=== PATIENT | male | born 1940 | race Caucasian/White ===

== ENCOUNTER 2021-06-23 19:37 | Emergency (ER) | payer MEDICARE, OTHER, SELFPAY ==
[2021-06-23] VITALS (7 sets, daily range): BP systolic 120–142; BP diastolic 57–66; PULSE 98–125; RESP 16; TEMP 37.3; O2SAT 95–96; BMI 25.8
[2021-06-23 20:14] LABS: COVID19 -Nasal RAPID Negative (Negative)
[2021-06-23 21:57] LABS: Add Manual Diff / Slide Review YES; Hematocrit 32.8 % (41-53); Hemoglobin 11.1 g/dL (13.5-17.5); Mean Corpuscular HGB Conc 33.8 % (30-36); Mean Corpuscular Hemoglobin 27.9 PG (26-34); Mean Corpuscular Volume 82.6 fL (80-100); Platelet Count 480 X10^3/uL (150-400); Red Blood Cell Count 3.97 X10^6/uL (4.5-5.9); Red Cell Distribution Width 13.6 % (11.6-14.8); White Blood Cell Count 15.3 X10^3/uL (4.5-11.0)
[2021-06-23 22:00] LABS: Alanine Aminotransferase 47 IU/L (<50); Albumin 3.9 g/dL (3.5-5.0); Albumin Globulin Ratio 1.1 (1.0-2.8); Alkaline Phosphatase 91 U/L (38-126); Aspartate Aminotransferase 36 IU/L (17-59); BUN Creatinine Ratio 24.7 (6-22); Bilirubin Total 0.5 mg/dL (0.2-1.3); Blood Urea Nitrogen 20 mg/dL (9-20); Calcium 9.1 mg/dL (8.4-10.2); Carbon Dioxide 24 mmol/L (22-32); Chloride 98 mmol/L (98-107); Estimated Glomerular Filt Rate > 60 mL/min (>60); Globulin 3.7 g/dL (1.7-4.1); Glucose 327 mg/dL (80-110); HEMOLYSIS < 15 (0-50); Lipase 198 U/L (23-300); Sodium 132 mmol/L (137-145); Total Protein 7.6 g/dL (6.3-8.2)
[2021-06-23 22:01] LABS: Potassium 5.4 mmol/L (3.4-5.1)
--- NOTE | 2021-06-23 22:24 | ED.NAVMDI ---
HPI - Nausea/Vomiting/Diarrhea General Chief complaint: Nausea/Vomiting/Diarrhea Stated complaint: NOT EATING OR DRINKING LOW BLOOD PRESSURE DIARRHEA Time Seen by Provider: 06/23/21 21:00 Source: patient and family Mode of arrival: Wheelchair History of Present Illness HPI Narrative: Patient is an 81-year-old male. He is here in the emergency department with his daughter for evaluation of 2 months of diarrhea, decreased eating and drinking over the past couple days and also more fatigue and sleeping more than normal. He does have some issues with confusion although he does note he is in the emergency department. Does not know what year it is. His daughter bedside states this is normal for him. He is relatively new to the area. He has a follow-up with a new primary doctor on Saturday. He has been having loose stools for the past several months. She also reports that he has not been eating very well. He states that he feels fine and has no specific complaints today. Patient's daughter states that when they try to feed him he states that he has full does not want any thing to eat. Given his decline over the past several days the daughter would like patient evaluated. Related Data Allergies Allergy/AdvReac Type Severity Reaction Status Date / Time No Known Drug Allergies Allergy Verified 06/23/21 19:45 Review of Systems Constitutional Constitutional: Denies fever(s) Cardiovascular Comments: Patient denies chest pain Respiratory Comments: Denies shortness of breath Gastrointestinal Comments: Patient denies any abdominal symptoms. No nausea. Integumentary/Breasts Skin/Breast: Reports system reviewed and no additional complaints, except as documented Neurologic Comments: No change in baseline Hematologic/Lymphatic On Anticoagulants: No Patient History Social History Smoking Status: Never smoker Smoking Status: Never smoker alcohol intake frequency: holidays/special occasions only Substance Use Type: does not use Exam Initial Vital Signs Initial Vital Signs: Vital Signs Temperature 99.1 F 06/23/21 19:46 Pulse Rate 125 H 06/23/21 19:46 Respiratory Rate 16 06/23/21 19:46 Blood Pressure 120/57 L 06/23/21 19:46 Pulse Oximetry 95 06/23/21 19:46 HENMT Head: normal to inspection and normocephalic Cardio Rate: regular rate Rhythm: regular rhythm GI Inspection: normal to inspection Palpation: soft and No tender Skin General: no rashes or lesions noted Neuro General: patient alert, patient awake and moves all extremities Extrem General: capillary refill normal Psych Appearance: grossly normal and well kempt Course Orders Ordered: ED Orders 06/23/21 19:54 COVID19 -Nasal RAPID/Pre-Proc Stat 06/23/21 21:01 EKG-12 Lead Stat 06/23/21 21:40 Complete Blood Count AUTO DIFF Stat Comprehensive Metabolic Panel Stat Lipase Stat 06/23/21 22:51 Urinalysis and Microscopic Stat Vital Signs Vital signs: Vital Signs - 8 hr 06/23/21 19:46 06/23/21 21:30 06/23/21 21:31 Temperature 99.1 F Pulse Rate 125 H 104 H 104 H Respiratory Rate 16 Blood Pressure 120/57 L 142/66 H Pulse Oximetry 95 96 95 06/23/21 22:00 06/23/21 22:30 06/23/21 23:00 Temperature Pulse Rate 100 H 101 H 98 H Respiratory Rate Blood Pressure Pulse Oximetry 95 96 96 06/23/21 23:30 06/24/21 00:00 Temperature Pulse Rate 99 H 98 H Respiratory Rate Blood Pressure 134/63 Pulse Oximetry 95 95 MDM - Nausea/Vomiting/Diarrhea Lab Data Attestation: I reviewed the patient's lab results. Result diagrams: 06/23/21 21:40 06/23/21 21:40 Labs: Lab Results 06/23/21 06/23/21 06/23/21 Range/Units 19:54 21:40 21:40 WBC 15.3 H (4.5-11.0) X10^3/uL RBC 3.97 L (4.5-5.9) X10^6/uL Hgb 11.1 L (13.5-17.5) g/dL Hct 32.8 L (41-53) % MCV 82.6 (80-100) fL MCH 27.9 (26-34) PG MCHC 33.8 (30-36) % RDW 13.6 (11.6-14.8) % Plt Count 480 H (150-400) X10^3/uL Neut % (Auto) Not Reportable Lymph % (Auto) Not Reportable [place] % (Auto) Not Reportable Eos % (Auto) Not Reportable Baso % (Auto) Not Reportable Lymph # (Auto) Not Reportable [place] # (Auto) Not Reportable Baso # (Auto) Not Reportable Total Counted 100 Seg Neutrophils % 60.0 (38-70) % Band Neutrophils % 4.0 (3-7) % Lymphocytes % (Manual) 23.0 L (25-45) % Monocytes % (Manual) 8.0 (2-11) % Eosinophils % (Manual) 3.0 (2-4) % Basophils % (Manual) 1.0 (0-1) % Neutrophils # (Manual) 9792 H (9759-0857) /uL Plasma Cells 1 RBC Morphology Normal morphology Sodium 132 L (137-145) mmol/L Potassium 5.4 H (3.4-5.1) mmol/L Chloride 98 (98-107) mmol/L Carbon Dioxide 24 (22-32) mmol/L BUN 20 (9-20) mg/dL Creatinine 0.81 (0.66-1.25) mg/dL Estimated GFR > 60 (>60) mL/min BUN/Creatinine Ratio 24.7 H (6-22) Glucose 327 H (80-110) mg/dL Calcium 9.1 (8.4-10.2) mg/dL Total Bilirubin 0.5 (0.2-1.3) mg/dL AST 36 (17-59) IU/L ALT 47 (<50) IU/L Alkaline Phosphatase 91 (38-126) U/L Total Protein 7.6 (6.3-8.2) g/dL Albumin 3.9 (3.5-5.0) g/dL Globulin 3.7 (1.7-4.1) g/dL Albumin/Globulin Ratio 1.1 (1.0-2.8) Lipase 198 (23-300) U/L Urine Color Urine Appearance Urine pH (4.5-8.0) Ur Specific [place] (1.000-1.035) Urine Protein (Negative) Urine Glucose (UA) (Negative) g/dL Urine Ketones (NEGATIVE) Urine Occult Blood (Negative) Urine Nitrate (Negative) Urine Bilirubin (NEGATIVE) Urine Urobilinogen (0.2) E.U./dL Ur Leukocyte Esterase (NEGATIVE) Urine RBC (0-5/HPF) Urine WBC (0-5/HPF) Urine Bacteria (None) Hyaline Casts (None) Urine Mucus (Negative) Ur Culture Indicated? SARS-CoV-2 (PCR) Negative (Negative) 06/23/21 Range/Units 22:51 WBC (4.5-11.0) X10^3/uL RBC (4.5-5.9) X10^6/uL Hgb (13.5-17.5) g/dL Hct (41-53) % MCV (80-100) fL MCH (26-34) PG MCHC (30-36) % RDW (11.6-14.8) % Plt Count (150-400) X10^3/uL Neut % (Auto) Lymph % (Auto) [place] % (Auto) Eos % (Auto) Baso % (Auto) Lymph # (Auto) [place] # (Auto) Baso # (Auto) Total Counted Seg Neutrophils % (38-70) % Band Neutrophils % (3-7) % Lymphocytes % (Manual) (25-45) % Monocytes % (Manual) (2-11) % Eosinophils % (Manual) (2-4) % Basophils % (Manual) (0-1) % Neutrophils # (Manual) (2824-6205) /uL Plasma Cells RBC Morphology Sodium (137-145) mmol/L Potassium (3.4-5.1) mmol/L Chloride (98-107) mmol/L Carbon Dioxide (22-32) mmol/L BUN (9-20) mg/dL Creatinine (0.66-1.25) mg/dL Estimated GFR (>60) mL/min BUN/Creatinine Ratio (6-22) Glucose (80-110) mg/dL Calcium (8.4-10.2) mg/dL Total Bilirubin (0.2-1.3) mg/dL AST (17-59) IU/L ALT (<50) IU/L Alkaline Phosphatase (38-126) U/L Total Protein (6.3-8.2) g/dL Albumin (3.5-5.0) g/dL Globulin (1.7-4.1) g/dL Albumin/Globulin Ratio (1.0-2.8) Lipase (23-300) U/L Urine Color Yellow Urine Appearance Clear Urine pH 5.0 (4.5-8.0) Ur Specific [place] 1.025 (1.000-1.035) Urine Protein Trace H (Negative) Urine Glucose (UA) 1+ H (Negative) g/dL Urine Ketones Negative (NEGATIVE) Urine Occult Blood Negative (Negative) Urine Nitrate Negative (Negative) Urine Bilirubin Negative (NEGATIVE) Urine Urobilinogen 0.2 (0.2) E.U./dL Ur Leukocyte Esterase Negative (NEGATIVE) Urine RBC None seen (0-5/HPF) Urine WBC None seen (0-5/HPF) Urine Bacteria None seen (None) Hyaline Casts 1-5/lpf (None) Urine Mucus 1+ H (Negative) Ur Culture Indicated? Cult not indicated SARS-CoV-2 (PCR) (Negative) MDM Narrative Medical decision making narrative: Patient does have a benign exam. Was tachycardic upon arrival but this improved without specific intervention. He does have a leukocytosis. Lungs are clear. Not coughing. Not febrile. Low suspicion for pneumonia. He has a benign abdominal exam. No reported tenderness to palpation. He is at baseline mental status. He has no skin changes concerning for cellulitis. Urinalysis shows no signs of urinary tract infection. Patient has had diarrhea for the past couple months which could be the cause of his leukocytosis. Unable to provide a stool sample here in the ER. I do feel that we can hold on any radiologic studies for now as I have low suspicion for an acute surgical intra-abdominal pathology given his exam. COVID negative. Hyperglycemic but not in DKA with a normal CO2 on chemistries. Does have a follow-up with a new primary doctor on Saturday. No indication for antibiotics currently. There would potentially be a benefit of a stool sample in the future specifically given his prolonged diarrhea and his leukocytosis. Daughter was given return precautions and follow-up instructions. She expressed understanding and agreement. Discharge Plan Departure Patient Disposition: Home Clinical Impression: Diarrhea Instructions: Diarrhea Activity Restrictions/Additional Instructions: I do recommend that you keep his appointment with the new primary doctor on Saturday. Continue to give him all of his medications as directed. Return to the emergency department for any new symptoms.
[2021-06-23 23:09] LABS: Appearance Urine UA CLEAR; Bilirubin Urine UA NEGATIVE (NEGATIVE); Color Urine UA YELLOW; Glucose Urine UA 1+ g/dL (Negative); Ketones Urine UA NEGATIVE (NEGATIVE); Leukocyte Esterase Urine UA NEGATIVE (NEGATIVE); Nitrite Urine UA NEGATIVE (Negative); Occult Blood Urine UA NEGATIVE (Negative); Protein Urine UA TRACE (Negative); Specific Gravity Urine UA 1.025 (1.000-1.035); Urobilinogen Urine UA 0.2 E.U./dL (0.2)
[2021-06-24] VITALS: BP 134/63; PULSE 98; O2SAT 95
[2021-06-24 00:10] LABS: Neutrophils Absolute Manual 9792 /uL (3000-5900); Total Cells Counted 100
[2021-06-24 00:11] LABS: Plasma Cells 1; RBC Morphology Normal Morphology
[2021-06-24 00:35] LABS: RBC Urine None Seen (0-5/HPF); WBC Urine None Seen (0-5/HPF)
[2021-06-24 00:36] LABS: Bacteria Urine None Seen; Culture Indicated Urine Cult Not Indicated; Hyaline Casts Urine 1-5/LPF; Mucus Urine 1+ (Negative)
== END 2021-06-24 00:11 | disposition home or self-care (01) ==
PROVIDERS: Emergency Provider Emergency Medicine
DX: R19.7 Diarrhea, unspecified (principal); R00.0 Tachycardia, unspecified; Z20.822 Contact with and (suspected) exposure to COVID-19
CPT/HCPCS: 36415; 80053; 81001; 83690; 85007; 85025; 87635; 99283; C9803

== ENCOUNTER → 2021-06-28 09:03 | Outpatient (CLI) | payer MEDICARE, OTHER, SELFPAY ==
--- NOTE | 2021-06-28 09:46 | DI.CT.S_ITS ---
PROCEDURE: CT CHEST ABD PEL W CON INDICATIONS: Weakness, Diarrhea, Fatigue TECHNIQUE: After the administration of oral and intravenous contrast, axial sections acquired from the supraclavicular neck to the pubic symphysis. Coronal and sagittal reformats were performed. For radiation dose reduction, the following was used: automated exposure control, adjustment of mA and/or kV according to patient size. COMPARISON: None. FINDINGS: Image quality: Excellent. CHEST: Lower Neck: No enlarged lymph nodes. Thyroid: Unremarkable. Axillae: No enlarged lymph nodes. Chest Wall: Unremarkable. Lungs and Airways: No consolidation or suspicious nodules. Pleura: No pneumothorax or pleural effusions. Heart: Heart size is normal. No pericardial effusion. Thoracic Vessels: The aorta and pulmonary arteries demonstrate normal size. Mediastinum and Michelle: No enlarged lymph nodes. Esophagus: No wall thickening. No hiatal hernia. ABDOMEN: Liver: Unremarkable. Gallbladder: The gallbladder is not visualized and may be surgically absent. Biliary ducts: Unremarkable. Pancreas: Unremarkable. Spleen: Unremarkable. Adrenal Glands: Unremarkable. Kidneys and Ureters: Unremarkable. Stomach and Bowel: Stomach, small bowel loops, and colon are unremarkable. There is a small gas filled duodenal diverticulum. Solid-appearing stool is present within the colon. Peritoneum: No abnormal intraperitoneal fluid. No free air. Ventral Wall: No hernia. Abdominal Nodes: No retroperitoneal or mesenteric adenopathy by size criteria. Vessels: Aorta and inferior vena cava are normal in size. There are scattered atheromatous calcifications throughout the aorta and iliac arteries bilaterally. PELVIS: Pelvic Organs: Unremarkable. Bladder: Unremarkable. Pelvic Nodes: No enlarged lymph nodes. Miscellaneous: There is a small left fat containing inguinal hernia. Bones: Unremarkable. IMPRESSION: 1. No acute cardiopulmonary or intra-abdominal findings. No findings to explain patient's symptoms. 2. Aortic atherosclerosis. Dictated by: Shea Fajardo M.D. on 06/28/2021 at 10:26 Approved by: Shea Fajardo M.D. on 06/28/2021 at 10:37
== END ==
PROVIDERS: PCP Internal Medicine; Referring Provider Internal Medicine; Visit Provider Internal Medicine
DX: R53.82 Chronic fatigue, unspecified (principal); R19.7 Diarrhea, unspecified; D64.9 Anemia, unspecified; R53.1 Weakness; I70.0 Atherosclerosis of aorta; K57.10 Diverticulosis of small intestine without perforation or abscess without bleeding
CPT/HCPCS: 71260; 74177

== ENCOUNTER 2021-07-02 18:33 | Observation (INO) | payer MEDICARE, OTHER, SELFPAY ==
[2021-07-02 18:39] VITALS: BP 116/62; PULSE 116; RESP 20; TEMP 36.6; O2SAT 94
--- NOTE | 2021-07-02 18:56 | DI.RAD.S_ITS ---
PROCEDURE: XR CHEST 1V INDICATIONS: chest pain TECHNIQUE: One view of the chest was acquired. COMPARISON: [facility], CT, CT CHEST ABD PEL W CON, 06/28/2021, 9:50. FINDINGS: Surgical changes and devices: Cholecystectomy clips. Lungs and pleura: Lungs are clear. No pleural effusions or pneumothorax. Mediastinum: Mediastinal contours appear normal. Heart size is normal. Bones and chest wall: No suspicious bony lesions. Overlying soft tissues appear unremarkable. IMPRESSION: No acute cardiopulmonary abnormality. Dictated by: Saulo Miles M.D. on 07/02/2021 at 19:59 Approved by: Saulo Miles M.D. on 07/02/2021 at 20:00
[2021-07-02 19:06] LABS: Add Manual Diff / Slide Review NO; Basophils Absolute Auto 300 /uL (0-100); Basophils Percent Auto 1.6 % (0-2); Eosinophils Absolute Auto 500 /uL (0-450); Eosinophils Percent Auto 2.7 % (2-4); Hematocrit 33.2 % (41-53); Hemoglobin 11.2 g/dL (13.5-17.5); Lymphocytes Absolute Auto 4200 /uL (1100-4500); Lymphocytes Percent Auto 21.6 % (25-40); Mean Corpuscular HGB Conc 33.7 % (30-36); Mean Corpuscular Hemoglobin 27.3 PG (26-34); Mean Corpuscular Volume 81.1 fL (80-100); Monocytes Absolute Auto 1900 /uL (0-900); Monocytes Percent Auto 9.6 % (3-14); Neutrophils Absolute Auto 12700 /uL (1500-7000); Neutrophils Percent Auto 64.5 % (50-75); Platelet Count 549 X10^3/uL (150-400); Red Blood Cell Count 4.09 X10^6/uL (4.5-5.9); Red Cell Distribution Width 13.9 % (11.6-14.8); White Blood Cell Count 19.6 X10^3/uL (4.5-11.0)
[2021-07-02 19:10] LABS: Alanine Aminotransferase 97 IU/L (<50); Albumin 3.6 g/dL (3.5-5.0); Albumin Globulin Ratio 0.9 (1.0-2.8); Alkaline Phosphatase 108 U/L (38-126); Aspartate Aminotransferase 72 IU/L (17-59); Bilirubin Total 0.4 mg/dL (0.2-1.3); Blood Urea Nitrogen 24 mg/dL (9-20); Calcium 9.1 mg/dL (8.4-10.2); Carbon Dioxide 25 mmol/L (22-32); Chloride 99 mmol/L (98-107); Creatine Kinase 33 U/L (55-170); Estimated Glomerular Filt Rate > 60 mL/min (>60); Glucose 232 mg/dL (80-110); HEMOLYSIS < 15 (0-50); Lipase 128 U/L (23-300); Magnesium 1.5 mg/dL (1.6-2.3); Potassium 4.5 mmol/L (3.4-5.1); Sodium 133 mmol/L (137-145); Total Protein 7.6 g/dL (6.3-8.2)
[2021-07-02 19:21] LABS: Troponin I < 0.012 ng/mL (0.01-0.034)
[2021-07-02 20:09] VITALS: PULSE 106; RESP 22
[2021-07-02 20:13] VITALS: BP 140/63; PULSE 106; RESP 14; O2SAT 96
[2021-07-02 20:30] VITALS: BP 120/58; PULSE 103; RESP 12; O2SAT 94
[2021-07-02 20:52] LABS: Lactate (Lactic Acid) 1.7 mmol/L (0.7-2.1)
--- NOTE | 2021-07-02 20:57 | ED_ITS ---
HPI - Recheck/Abnormal Lab/Rx General Chief Complaint: Recheck/Abnormal Lab/Rx Stated Complaint: Won't eat, hallucinating, weakness Time Seen by Provider: 07/02/21 20:57 Source: patient and family Mode of arrival: Wheelchair History of Present Illness HPI narrative: 81-year-old gentleman with a history of hypertension, hyperlipidemia, diabetes who was doing well until about a month ago when he began a significant decline. Increased sleeping decreased interest in eating, increasing weakness. The recent diet changes due to the decreased p.o. intake that his daughter thinks caused a brief period of diarrhea. One prior to this rather acute decline he had been doing fairly well and was in fact out here visiting his daughter. He was seen in the emergency room a week ago with workup that was relatively unremarkable. He was seen by his primary care physician Dr. Renae who did the thorough outpatient workup including CT scan of the chest abdomen and pelvis that was unremarkable. Stool studies have subsequently been done and they too were unremarkable. Patient has no localizing findings, has not been complaining of chest pain, headache, fevers, abdominal pain, vomiting. There is no complaints of skin changes or rashes. His daughter notes that he seems to be hallucinating slightly over the last 1-2 days with increasing weakness overall. With a brief discussion over goals of care, that this abrupt decline has only been over the last month he remains clearly a full code. Related Data Allergies Allergy/AdvReac Type Severity Reaction Status Date / Time No Known Drug Allergies Allergy Verified 06/23/21 19:45 Review of Systems Review of Systems Narrative: Remainder of complete review of systems is otherwise unremarkable except for that included in the HPI. Patient History Medical History Diabetes Hyperlipidemia Hypertension Social History Smoking Status: Never smoker Smoking Status: Never smoker alcohol intake frequency: holidays/special occasions only Substance Use Type: does not use Exam Initial Vital Signs Initial Vital Signs: Vital Signs Temperature 97.8 F 07/02/21 18:39 Pulse Rate 116 H 07/02/21 18:39 Respiratory Rate 20 07/02/21 18:39 Blood Pressure 116/62 07/02/21 18:39 Pulse Oximetry 94 07/02/21 18:39 General: Frail and chronically ill-appearing but, in no acute distress. Hard of hearing and cooperative but not immediately participating with exam HEENT: dry mucous membranes, normal sclera with reactive pupils, Neck: No JVD, supple Respiratory: Lungs are clear to auscultation, no wheezing no rales no rhonchi. Full and symmetrical air movement Cardiac: Regular rate and rhythm no murmurs no bruits Abdomen: Soft, nontender, good bowel tones, no flank pain Skin: Warm and dry, no rashes, NO AREAS TO SUGGEST CELLULITIS Neurologic: GLOBALLY WEAK BUTGrossly neurologically intact with no obvious asymmetries or abnormalities Extremities: No trauma, well perfused, no lower extremity edema Psych: Fatigued, helpful in response to direct commands but not participating in conversation Course Orders Ordered: ED Orders 07/02/21 18:49 Complete Blood Count AUTO DIFF Stat Comprehensive Metabolic Panel Stat Lactate (Lactic Acid) Stat Lipase Stat Magnesium Stat Troponin & CK Cardiac Panel Stat 07/02/21 18:56 XR chest 1V Stat 07/02/21 21:18 CT head/brain wo con Stat EKG-12 Lead Stat 07/02/21 21:22 Blood Culture Stat 07/02/21 21:30 Ictotest Urine Stat Urine Culture Stat Urine Microscopic Stat 07/02/21 21:57 COVID19 -Nasal RAPID/Pre-Proc Stat Sodium Chloride (Normal Saline 0.9%) 2,122.8 mls @ 707.6 mls/hr 30 ml/kg infuse over 3 hr (2122.8 ml) IV NOW ONE Stop: 07/02/21 23:56 Last Admin: 07/02/21 21:10 Dose: 707.6 mls/hr Documented by: SLOANE Discontinued Medications Ceftriaxone Sodium 2,000 mg/ (Sodium Chloride) 100 mls @ 200 mls/hr IV NOW ONE Stop: 07/02/21 21:30 Last Infusion: 07/02/21 22:32 Dose: 0 mls/hr Documented by: Admin: 07/02/21 21:53 Dose: 200 mls/hr Documented by: SLOANE Vital Signs Vital signs: Vital Signs - 8 hr 07/02/21 18:39 07/02/21 20:09 07/02/21 20:13 Temperature 97.8 F Pulse Rate 116 H 106 H 106 H Respiratory Rate 20 22 14 Blood Pressure 116/62 140/63 Pulse Oximetry 94 96 07/02/21 20:30 07/02/21 21:00 07/02/21 21:30 Temperature Pulse Rate 103 H 101 H 100 H Respiratory Rate 12 10 L 17 Blood Pressure 120/58 L 124/60 133/62 Pulse Oximetry 94 95 96 MDM - Recheck/Abnormal Lab/Rx Lab Data Result diagrams: 07/02/21 18:49 07/02/21 18:49 Labs: Lab Results 07/02/21 07/02/21 07/02/21 Range/Units 18:49 18:49 18:49 WBC 19.6 H (4.5-11.0) X10^3/uL RBC 4.09 L (4.5-5.9) X10^6/uL Hgb 11.2 L (13.5-17.5) g/dL Hct 33.2 L (41-53) % MCV 81.1 (80-100) fL MCH 27.3 (26-34) PG MCHC 33.7 (30-36) % RDW 13.9 (11.6-14.8) % Plt Count 549 H (150-400) X10^3/uL Neut % (Auto) 64.5 (50-75) % Lymph % (Auto) 21.6 L (25-40) % [place] % (Auto) 9.6 (3-14) % Eos % (Auto) 2.7 (2-4) % Baso % (Auto) 1.6 (0-2) % Neut # (Auto) 64806 H (2967-6745) /uL Lymph # (Auto) 4200 (0436-7918) /uL [place] # (Auto) 1900 H (0-900) /uL Eos # (Auto) 500 H (0-450) /uL Baso # (Auto) 300 H (0-100) /uL Sodium 133 L (137-145) mmol/L Potassium 4.5 (3.4-5.1) mmol/L Chloride 99 (98-107) mmol/L Carbon Dioxide 25 (22-32) mmol/L BUN 24 H (9-20) mg/dL Creatinine 1.00 (0.66-1.25) mg/dL Estimated GFR > 60 (>60) mL/min BUN/Creatinine Ratio 24.0 H (6-22) Glucose 232 H (80-110) mg/dL Lactate 1.7 (0.7-2.1) mmol/L Calcium 9.1 (8.4-10.2) mg/dL Magnesium 1.5 L (1.6-2.3) mg/dL Total Bilirubin 0.4 (0.2-1.3) mg/dL AST 72 H (17-59) IU/L ALT 97 H (<50) IU/L Alkaline Phosphatase 108 (38-126) U/L Total Creatine Kinase 33 L (55-170) U/L CK-MB (CK-2) TNP CK-MB (CK-2) Rel Index TNP Troponin I < 0.012 (0.01-0.034) ng/mL Total Protein 7.6 (6.3-8.2) g/dL Albumin 3.6 (3.5-5.0) g/dL Globulin 4.0 (1.7-4.1) g/dL Albumin/Globulin Ratio 0.9 L (1.0-2.8) Lipase 128 (23-300) U/L Ur Bilirubin Confirm (Negative) Urine RBC (0-5/HPF) Urine WBC (0-5/HPF) Ur Squamous Epith Cells (0-5/HPF) Amorphous Sediment Urine Bacteria (None) Hyaline Casts (None) Granular Casts (None) Urine Mucus (Negative) Ur Culture Indicated? SARS-CoV-2 (PCR) (Negative) 07/02/21 07/02/21 Range/Units 21:30 21:57 WBC (4.5-11.0) X10^3/uL RBC (4.5-5.9) X10^6/uL Hgb (13.5-17.5) g/dL Hct (41-53) % MCV (80-100) fL MCH (26-34) PG MCHC (30-36) % RDW (11.6-14.8) % Plt Count (150-400) X10^3/uL Neut % (Auto) (50-75) % Lymph % (Auto) (25-40) % [place] % (Auto) (3-14) % Eos % (Auto) (2-4) % Baso % (Auto) (0-2) % Neut # (Auto) (0856-4805) /uL Lymph # (Auto) (4303-6254) /uL [place] # (Auto) (0-900) /uL Eos # (Auto) (0-450) /uL Baso # (Auto) (0-100) /uL Sodium (137-145) mmol/L Potassium (3.4-5.1) mmol/L Chloride (98-107) mmol/L Carbon Dioxide (22-32) mmol/L BUN (9-20) mg/dL Creatinine (0.66-1.25) mg/dL Estimated GFR (>60) mL/min BUN/Creatinine Ratio (6-22) Glucose (80-110) mg/dL Lactate (0.7-2.1) mmol/L Calcium (8.4-10.2) mg/dL Magnesium (1.6-2.3) mg/dL Total Bilirubin (0.2-1.3) mg/dL AST (17-59) IU/L ALT (<50) IU/L Alkaline Phosphatase (38-126) U/L Total Creatine Kinase (55-170) U/L CK-MB (CK-2) CK-MB (CK-2) Rel Index Troponin I (0.01-0.034) ng/mL Total Protein (6.3-8.2) g/dL Albumin (3.5-5.0) g/dL Globulin (1.7-4.1) g/dL Albumin/Globulin Ratio (1.0-2.8) Lipase (23-300) U/L Ur Bilirubin Confirm Negative (Negative) Urine RBC 0-1/hpf (0-5/HPF) Urine WBC 0-1/hpf (0-5/HPF) Ur Squamous Epith Cells 0-1 /hpf (0-5/HPF) Amorphous Sediment 1+ Urine Bacteria Few (2-10) H (None) Hyaline Casts 1-5/lpf (None) Granular Casts 0-1/lpf (None) Urine Mucus 2+ H (Negative) Ur Culture Indicated? Culture not indicate SARS-CoV-2 (PCR) Negative (Negative) Urine Dip Bedside Urine Glucose Negative Bedside Urine Bilirubin ++ 2 Bedside Urine Ketone - Negative Urine Specific [place] 1.030 Bedside Urine Occult Blood - Negative Bedside Urine pH 6 Bedside Urine Protein + 30 Bedside Urine Urobilinogen +/- 1mg Bedside Urine Nitrite - Negative Bedside Urine Leukocytes - Negative Esterase Imaging Data Chest x-ray: Radiologist's Impression: FINDINGS:? ? Surgical changes and devices:? Cholecystectomy clips.? ? Lungs and pleura:? Lungs are clear.? No pleural effusions or pneumothorax.? ? Mediastinum:? Mediastinal contours appear normal.? Heart size is normal.? ? Bones and chest wall:? No suspicious bony lesions.? Overlying soft tissues appear unremarkable.? ? IMPRESSION:? No acute cardiopulmonary abnormality. ? ? ? Dictated by: Saulo Miles M.D. on 07/02/2021 at 19:59? ?? CT chest/abd/pelvis: Radiologist's Impression: FINDINGS:? Image quality:? Excellent.? ? CHEST: Lower Neck: No enlarged lymph nodes.? Thyroid:? Unremarkable. Axillae: No enlarged lymph nodes. Chest Wall:? Unremarkable.? ? Lungs and Airways: No consolidation or suspicious nodules. Pleura: No pneumothorax or pleural effusions.? ? Heart: Heart size is normal.? No pericardial effusion. Thoracic Vessels: The aorta and pulmonary arteries demonstrate normal size.? Mediastinum and Michelle: No enlarged lymph nodes.? Esophagus: No wall thickening. No hiatal hernia. ? ? ABDOMEN: Liver:? Unremarkable.? ? Gallbladder:? The gallbladder is not visualized and may be surgically absent.? ? Biliary ducts:? Unremarkable.? ? Pancreas:? Unremarkable.? ? Spleen:? Unremarkable.? ? Adrenal Glands:? Unremarkable.? ? Kidneys and Ureters:? Unremarkable.? ? ? Stomach and Bowel:? Stomach, small bowel loops, and colon are unremarkable.? There is a small gas filled duodenal diverticulum.? Solid-appearing stool is present within the colon. Peritoneum:? No abnormal intraperitoneal fluid.? No free air.? ? Ventral Wall: ? No hernia.? Abdominal Nodes:? No retroperitoneal or mesenteric adenopathy by size criteria.? Vessels:? Aorta and inferior vena cava are normal in size.? There are scattered atheromatous calcifications throughout the aorta and iliac arteries bilaterally. ? ? PELVIS: Pelvic Organs:? Unremarkable.? ? Bladder:? Unremarkable.? ? Pelvic Nodes: No enlarged lymph nodes.? Miscellaneous:? There is a small left fat containing inguinal hernia. ? Bones:? Unremarkable.? ? ? IMPRESSION:? 1. No acute cardiopulmonary or intra-abdominal findings.? No findings to explain patient's symptoms.? ? 2. Aortic atherosclerosis.? ? Dictated by: Shea Fajardo M.D. on 06/28/2021 at 10:26? ?? CT scan - head: Radiologist's Impression: FINDINGS:? Image quality:? Excellent.? ? CSF spaces:? Basal cisterns are patent.? No extra-axial fluid collections.? There is moderate cerebral volume loss, with resultant ventricular and sulcal prominence.? There is prominent dural calcification along the tentorium bilaterally.? ? Brain:? No intracranial hemorrhage, mass, or mass effect.? There are subcortical , periventricular and deep white matter hypodensities consistent with [id number] chronic small vessel ischemic changes.? The berg-white matter junction appears preserved. ?There is intracranial internal carotid artery atherosclerosis.? ? Skull and face:? Calvarium and visualized facial bones appear intact, without suspicious lesions.? ? Sinuses:? Visualized sinuses and mastoids are clear.? ? IMPRESSION:? ? 1. No acute intracranial abnormality. ? 2. Moderate cerebral volume loss and maru-ws-[id number] chronic white matter small vessel ischemic changes.? ? Dictated by: Domingo Moreno M.D. on 07/02/2021 at 22:22? ?? MDM Narrative Medical decision making narrative: 81-year-old gentleman with fairly rapid decline in the last month with no apparent etiology. At this point he is sleeping up to 20 hours a day and has no appetite. CT scan of the chest abdomen pelvis is benign, COVID test a week ago was negative his repeated today. Diarrhea from last week has resolved and stool samples showed no acute findings. His white blood cell count is elevated and has increased from last week but has no significant left shift. Possibility of a developing hematologic cancer is possible yet the progression in symptoms se ems a bit unusual to explain that. He has not yet had a CT scan of his head and that will be done today. Despite his poor intake kidney function is actually doing well with creatinine at 1 today. LFTs have increased slightly over the last week, glucose is mildly elevated but remainder of electrolytes are unremarkable. Clinically, he appears quite dry. He is given 30 per kilos of normal saline and will begin ceftriaxone while workup continues. He is not febrile nor hypotensive and I do not have a source to suspect infection. CT scan of the head is equally unremarkable. This time the rather acute decline with no obvious source is somewhat puzzling. He is slightly improved after 2 L of fluid. Care is reviewed with Dr. Rehman and patient will be admitted for fluids antibiotics and further observation. Discussed findings with the patient and his daughter both of whom are agreeable to current plan Discharge Plan Departure Patient Disposition: Admitted as Observation Clinical Impression: Leukocytosis, Weakness
[2021-07-02 21:00] VITALS: BP 124/60; PULSE 101; RESP 10; O2SAT 95
[2021-07-02] MEDS: SODIUM CHLORIDE 0.9% 707.6 ML IV (21:10)
--- NOTE | 2021-07-02 21:18 | DI.CT.S_ITS ---
PROCEDURE: CT HEAD/BRAIN WO CON INDICATIONS: altered mental status TECHNIQUE: Noncontrast 4.5 mm thick angled axial sections acquired from the foramen magnum to the vertex, with coronal and sagittal reformats. For radiation dose reduction, the following was used: automated exposure control, adjustment of mA and/or kV according to patient size. COMPARISON: None. FINDINGS: Image quality: Excellent. CSF spaces: Basal cisterns are patent. No extra-axial fluid collections. There is moderate cerebral volume loss, with resultant ventricular and sulcal prominence. There is prominent dural calcification along the tentorium bilaterally. Brain: No intracranial hemorrhage, mass, or mass effect. There are subcortical, periventricular and deep white matter hypodensities consistent with vewn-sg-[id number] chronic small vessel ischemic changes. The berg-white matter junction appears preserved. There is intracranial internal carotid artery atherosclerosis. Skull and face: Calvarium and visualized facial bones appear intact, without suspicious lesions. Sinuses: Visualized sinuses and mastoids are clear. IMPRESSION: 1. No acute intracranial abnormality. 2. Moderate cerebral volume loss and egwp-nd-dpfszvty chronic white matter small vessel ischemic changes. Dictated by: Domingo Moreno M.D. on 07/02/2021 at 22:22 Approved by: Domingo Moreno M.D. on 07/02/2021 at 22:23
[2021-07-02 21:30] VITALS: BP 133/62; PULSE 100; RESP 17; O2SAT 96
[2021-07-02 21:46] LABS: Amorphous Sediment Urine 1+; Bacteria Urine Few (2-10); Granular Casts Urine 0-1/LPF; Hyaline Casts Urine 1-5/LPF; Ictotest Urine Negative (Negative); RBC Urine 0-1/HPF (0-5/HPF); Squamous Epithelial Cell Urine 0-1 /HPF (0-5/HPF); WBC Urine 0-1/HPF (0-5/HPF)
[2021-07-02 21:47] LABS: Mucus Urine 2+ (Negative)
[2021-07-02] MEDS: cefTRIAXone 2,000 MG in SODIUM CHLORIDE 0.9% 100 ML 200 MG IV (21:53)
[2021-07-02 22:19] LABS: COVID19 -Nasal RAPID Negative (Negative)
[2021-07-02 23:31] VITALS: BMI 25.2
[2021-07-03] VITALS (9 sets, daily range): BP systolic 96–130; BP diastolic 45–68; PULSE 75–99; RESP 12–19; TEMP 36.2–37.1; O2SAT 93–98
--- NOTE | 2021-07-03 00:27 | PM.HP.1 ---
History of Present Illness History of Present Illness Date Patient Seen: 07/03/21 Time Patient Seen: 00:28 Chief complaint: Won't eat, hallucinating, weakness Narrative: This is an 81-year-old male with a past medical history of diabetes, hypertension, hyperlipidemia who presented with about a month of worsening confusion according to his daughter. Patient was brought into the emergency room about a week ago, and was discharged home after no overt etiologies were found. He has been having mild diarrhea but also has a gluten intolerance according to his daughter, and has had a negative infectious evaluation with his new primary provider. He has had more unsteadiness with ambulation according to his daughter and has nearly fallen he couple of times, predominantly with turns. She denies any fevers, chills. He had a mild case of COVID-19 back in February, he was not admitted to the hospital and the daughter reports that he is vaccinated. Over the past week, his daughter reports a lack of appetite and she has been trying to get him any nutrition. She has held some of his diabetes medications recently because of his lack of appetite, and has been feeding him a lot of fruits and sugary drinks to get him any sort of nutrition. She also notes over the past 3 days she has seen him waving at no one, and when she asks what he's doing he responds that he's waving at his whom is not there. In the emergency room, he was mildly tachycardic but the remainder of his vital signs were unremarkable. Initial laboratory evaluation showed a leukocytosis with WBC of 19.6, hemoglobin was 11.2, and platelet count was 549. Chemistries revealed a mild hyponatremia with sodium of 133, glucose was elevated at 232. Magnesium was slightly low at 1.5, there was a mild transaminitis with AST of 72, and ALT of 97. Troponin was negative. Urinalysis showed no evidence of infections with 0-1 rbc's and wbc's. COVID-19 testing was negative. He had a CT scan of his head in the emergency room which showed age related degenerative changes. Chest x-ray was unremarkable. He had a CT chest abdomen pelvis with his primary care provider which showed no acute findings. Patient History Medical History Diabetes Hyperlipidemia Hypertension Surgical History No pertinent past surgical history Family & Social History Family History Mother Diabetes mellitus Father Diabetes mellitus Other Congestive heart failure Hyperlipidemia Tobacco & Substance use: Smoking Status Never smoker alcohol intake frequency holiday/special occasion Substance Use Type does not use Meds Home Medications and Allergies Home Medications Medication Instructions Recorded Confirmed Type Claritin 10 mg PO DAILY 07/03/21 07/03/21 History Vitamin D3 5,000 units PO DAILY 07/03/21 07/03/21 History atorvastatin 20 mg tablet 20 mg PO DAILY 07/03/21 07/03/21 History metformin 500 mg tablet,extended 1,000 mg PO BID 07/03/21 07/03/21 History release 24 hr metoprolol succinate 25 mg PO DAILY 07/03/21 07/03/21 History semaglutide 1 mg/dose (2 mg/1.5 1 mg SUBCUT QWEEK 07/03/21 07/03/21 History mL) subcutaneous pen injector Allergies Allergy/AdvReac Type Severity Reaction Status Date / Time No Known Drug Allergies Allergy Verified 06/23/21 19:45 Review of Systems Review of Systems Narrative: All other systems reviewed with the patient and are negative unless otherwise stated. Exam Vital Signs (past 8 hours): - 07/02/21 18:39 07/02/21 20:09 07/02/21 20:13 Temperature 97.8 F Pulse Rate 116 H 106 H 106 H Respiratory Rate 20 22 14 Blood Pressure 116/62 140/63 Pulse Oximetry 94 96 07/02/21 20:30 07/02/21 21:00 07/02/21 21:30 Temperature Pulse Rate 103 H 101 H 100 H Respiratory Rate 12 10 L 17 Blood Pressure 120/58 L 124/60 133/62 Pulse Oximetry 94 95 96 Oxygen Delivery Method Room Air Narrative Exam Narrative: General:? Patient is well developed and well nourished, in no distress at this time. HEENT:? Normocephalic, atraumatic, extraocular muscles intact, oral pharynx is clear and mucous membranes are moist. Neck: supple and symmetric, trachea is midline, no cervical adenopathy. Negative for JVD Chest:? Normal AP diameter and contour without kyphoscoliosis, no tachypnea, equal chest rise bilaterally. Lungs:? CTA b/l no wheezing rhonchi or rales. Cardio:?RRR no m/r/g. Abdomen: S NT ND Musculoskeletal:? Muscle strength and tone are equal within normal limits, no deformity. Extremities: No edema or joint effusions. No cyanosis or clubbing. Skin:? Pale,? Warm to touch,dry and intact without rashes, ulcerations or petechiae.? Neuro:? Alert and orientated to name and place, Does not know current month but states year is 2,2. Speaks in vague references.? sensation to touch intact in all extremities, no gross deficits noted of cranial nerves. Strength is +5/5 in UE and LE bilaterally. He is hard of hearing. Psych:? Patient has a well-kept appearance, appropriate affect. Objective ECG Impression: Sinus tachycardia Left bundle branch block No prior tracings As interpreted by me. Imaging Chest x-ray: My impression: Unremarkable chest x-ray as interpreted by me Labs Result Diagrams: 07/02/21 18:49 07/02/21 18:49 Labs: Laboratory Results - last 24 hr 07/02/21 07/02/21 07/02/21 18:49 18:49 18:49 WBC 19.6 H RBC 4.09 L Hgb 11.2 L Hct 33.2 L MCV 81.1 MCH 27.3 MCHC 33.7 RDW 13.9 Plt Count 549 H Neut % (Auto) 64.5 Lymph % (Auto) 21.6 L [place] % (Auto) 9.6 Eos % (Auto) 2.7 Baso % (Auto) 1.6 Neut # (Auto) 19324 H Lymph # (Auto) 4200 [place] # (Auto) 1900 H Eos # (Auto) 500 H Baso # (Auto) 300 H Sodium 133 L Potassium 4.5 Chloride 99 Carbon Dioxide 25 BUN 24 H Creatinine 1.00 Estimated GFR > 60 BUN/Creatinine Ratio 24.0 H Glucose 232 H Lactate 1.7 Calcium 9.1 Magnesium 1.5 L Total Bilirubin 0.4 AST 72 H ALT 97 H Alkaline Phosphatase 108 Total Creatine Kinase 33 L CK-MB (CK-2) TNP CK-MB (CK-2) Rel Index TNP Troponin I < 0.012 Total Protein 7.6 Albumin 3.6 Globulin 4.0 Albumin/Globulin Ratio 0.9 L Lipase 128 Ur Bilirubin Confirm Urine RBC Urine WBC Ur Squamous Epith Cells Amorphous Sediment Urine Bacteria Hyaline Casts Granular Casts Urine Mucus Ur Culture Indicated? SARS-CoV-2 (PCR) 07/02/21 07/02/21 21:30 21:57 WBC RBC Hgb Hct MCV MCH MCHC RDW Plt Count Neut % (Auto) Lymph % (Auto) [place] % (Auto) Eos % (Auto) Baso % (Auto) Neut # (Auto) Lymph # (Auto) [place] # (Auto) Eos # (Auto) Baso # (Auto) Sodium Potassium Chloride Carbon Dioxide BUN Creatinine Estimated GFR BUN/Creatinine Ratio Glucose Lactate Calcium Magnesium Total Bilirubin AST ALT Alkaline Phosphatase Total Creatine Kinase CK-MB (CK-2) CK-MB (CK-2) Rel Index Troponin I Total Protein Albumin Globulin Albumin/Globulin Ratio Lipase Ur Bilirubin Confirm Negative Urine RBC 0-1/hpf Urine WBC 0-1/hpf Ur Squamous Epith Cells 0-1 /hpf Amorphous Sediment 1+ Urine Bacteria Few (2-10) H Hyaline Casts 1-5/lpf Granular Casts 0-1/lpf Urine Mucus 2+ H Ur Culture Indicated? Culture not indicate SARS-CoV-2 (PCR) Negative Assessment & Plan Assessment & Plan narrative: 1. Possible Acute encephalopathy or rapidly progressive dementia. - daughter reports worsening cognition and balance over the past month. More gradual of an onset over the past month she states rather than an abrupt change. - Labs notable for a leukocytosis with no obvious infectious etiologies currently evident. Will observe off of antibiotics, a dose of ceftriaxone was given in the ER. 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 Though given his significant risk factors including DM, HTN, HLD a subacute CVA is certainly a possibility. CT shows age related degenerative changes. Will order an MRI. - continue telemetry - check TSH, A1c, B12. - PT / OT evaluations ordered 2. Hyponatremia, hypomagnesemia - suspect due to volume depletion and low oral intake. - will replete as needed. 3. Leukocytosis - no obvious infectious etiologies present. If persistent after rehydration consider hematologic evaluation for leukemias though this seems less likely. 4. transaminitis - suspect in setting of hypovolemia - continue to follow. - he has no abdominal pain and recent unremarkable CT imaging of his abdomen. 5. Type 2 diabetes - continue sliding scale insulin only in the setting of unknown oral intake at this time - continue to adjust as needed. - will check an A1c. 6. HTN, chronic - will hold home medications for now, he is currently normotensive. Dispo: Patient is admitted under observation status as his stay is not expected to exceed 2 midnights. Code: Full, as discussed with the patient's daughter, his next of kin. I have utilized all available immediate resources to obtain, update, or review the patient's current medications. COVID-19 COVID-19 status: Negative Time Spent With Patient Critical Care time: I spent a total of [] minutes of critical care time on this patient's care today; this time is exclusive of procedural time. Quality MIPS - Admit I confirm the patient?s Advance Care Plan is present, Code status is documented, Surrogate decision maker is in patient?s record [If Yes, STOP here]: Yes
--- NOTE | 2021-07-03 00:54 | DI.MRI.S_ITS ---
PROCEDURE: MR HEAD/BRAIN WO CON INDICATIONS: delirium or rapidly progressive dementia, r/o CVA TECHNIQUE: Non-contrast axial T1 spin echo, axial T2 fast spin echo, sagittal and axial FLAIR, coronal T2 fast spin echo, axial gradient echo, axial diffusion and ADC through the brain. COMPARISON: [facility], CT, CT HEAD/BRAIN WO CON, 07/02/2021, 21:32. FINDINGS: Image quality: Excellent. CSF spaces: Ventricles appear symmetric in size and shape. Basal cisterns are patent. No extra-axial fluid collections. Brain: No intracranial bleeds or mass effects. There is fronto temporal predominant cerebral volume loss for age. There are minimal periventricular and deep white matter chronic small vessel ischemic changes. Brainstem appears normal. Diffusion-weighted images show no acute ischemic insults. No chronic ischemic insults. Normal intravascular flow voids are present. Skull and face: Calvarial bone marrow is normal in signal. Orbits are normal. Sinuses: Mild mucosal thickening within the ethmoid sinuses bilaterally. Sinuses and mastoids are otherwise clear. IMPRESSION: 1. No acute process. No recent infarct. Volume loss and small vessel ischemic disease. 2. Mild ethmoid sinus disease. Dictated by: Kimber Jameson M.D. on 07/03/2021 at 9:55 Approved by: Kimber Jameson M.D. on 07/03/2021 at 9:56
[2021-07-03 05:12] LABS: Hematocrit 27.1 % (41-53); Mean Corpuscular HGB Conc 33.3 % (30-36); Mean Corpuscular Hemoglobin 27.2 PG (26-34); Mean Corpuscular Volume 81.7 fL (80-100); Platelet Count 472 X10^3/uL (150-400); Red Blood Cell Count 3.32 X10^6/uL (4.5-5.9); Red Cell Distribution Width 14.2 % (11.6-14.8); White Blood Cell Count 14.3 X10^3/uL (4.5-11.0)
[2021-07-03 05:18] LABS: BUN Creatinine Ratio 19.6 (6-22); Blood Urea Nitrogen 18 mg/dL (9-20); Carbon Dioxide 27 mmol/L (22-32); Chloride 103 mmol/L (98-107); Estimated Glomerular Filt Rate > 60 mL/min (>60); Glucose 188 mg/dL (80-110); HEMOLYSIS < 15 (0-50); Magnesium 1.5 mg/dL (1.6-2.3); Potassium 4.2 mmol/L (3.4-5.1); Sodium 134 mmol/L (137-145)
[2021-07-03 05:37] LABS: Hemoglobin A1C% w Est Avg Glu 7.9 % (4.0-6.0)
[2021-07-03 05:39] LABS: Add Manual Diff / Slide Review YES
[2021-07-03 05:41] LABS: Neutrophils Absolute Manual 9152 /uL (3000-5900); Total Cells Counted 100
[2021-07-03 05:42] LABS: RBC Morphology Normal Morphology
--- NOTE | 2021-07-03 05:55 | PC.NURSE ---
Admit Notes: Patient brought in from ER by stretcher, alert and oriented x2, bilateral difficulty of hearing, obeys commands, at room air, denies any pain/discomfort, not in distress. Vital signs are stable and within acceptable limits. Patient was seen and examined by Dr. Rehman, new orders provided. IV access maintained saline locked at right forearm. Safety precautions initiated and maintained, call dickson in reach. Patient was able to get up from bed and use the toilet with one person assist. Will continue to monitor.
[2021-07-03 06:47] LABS: Vitamin B12 Reflex MMA if <400 > 1000 pg/mL (239-931)
[2021-07-03] MEDS: ENOXAPARIN 40 MG/0.4 ML SYRINGE SUBCUT (09:11)
[2021-07-03] MEDS: ATORVASTATIN 20 MG TABLET PO (09:11)
--- NOTE | 2021-07-03 10:24 | PT.IIE ---
Medical History (Last Reviewed 07/03/21 @ 00:32 by Benjamin Rehman DO) Diabetes Hyperlipidemia Hypertension Physical Therapy Inpatient Evaluation/Re-Eval M1 PT/OT-IP Prior Functional Status Start: 07/03/21 09:18 Freq: NEEDED Status: Active Protocol: Document 07/03/21 11:33 CGR (Rec: 07/03/21 11:57 CGR [id number]) Medical Review Prior Functional Status Medical History Reviewed Yes Communication Pt's first language is Bulgarian. He is JAMUL and typically uses B ROUSE. He is able to make his needs known. Mobility and Gait Pt uses no AD at baseline and has had no falls. He is typically able to get up and down the two stairs for home entry. In the past one month, he has been increasingly unsteady, especially in turns. His family has encouraged him to use a 4WW but he is resistant. Pt has a reccumbent bike at home which he rides 20 minutes daily. Activities of Daily Living and IADL's Pt is independent with ADL's at baseline. In the past month , his daughters have provided assist with showers (seated) due to increasing unsteadiness . Daughter states that pt is increasingly resistant to showering and other hygiene. Prior Functional Level (Other details) Pt and his live in [place] and are staying for an extended stay here with their daughters. One of the daughters is always home with the pt. Social History Household Members spouse,family,children Living Arrangements House Number of Floors (Floors) One Floor Number of Stairs To Enter/Railing? 2 FADY with no rail Home Environment Standard Height Toilet,Walk in Shower Home Equipment Four Wheel Walker,Bedside Commode,Raised Toilet Seat w/ Armrests,Shower Seat with Backrest,Hand Held Shower Employment Status Retired Additional Social History Comment Pt lives with his two daughters and his spouse, Laurie, who has Alzheimer's. Much of the DME listed above is for Laurie but pt is able to use as needed. His daughters Lynn and Munira provide 24/7 care for pt and his spouse. M1 PT/OT-IP Prior Functional Status Start: 07/03/21 11:32 Freq: NEEDED Status: Active Protocol: Document 07/03/21 11:33 CGR (Rec: 07/03/21 11:57 CGR [id number]) Medical Review Prior Functional Status Medical History Reviewed Yes Communication Pt's first language is Bulgarian. He is JAMUL and typically uses B ROUSE. He is able to make his needs known. Mobility and Gait Pt uses no AD at baseline and has had no falls. He is typically able to get up and down the two stairs for home entry. In the past one month, he has been increasingly unsteady, especially in turns. His family has encouraged him to use a 4WW but he is resistant. Pt has a reccumbent bike at home which he rides 20 minutes daily. Activities of Daily Living and IADL's Pt is independent with ADL's at baseline. In the past month , his daughters have provided assist with showers (seated) due to increasing unsteadiness . Daughter states that pt is increasingly resistant to showering and other hygiene. Prior Functional Level (Other details) Pt and his live in [place] and are staying for an extended stay here with their daughters. One of the daughters is always home with the pt. Social History Household Members spouse,family,children Living Arrangements House Number of Floors (Floors) One Floor Number of Stairs To Enter/Railing? 2 FADY with no rail Home Environment Standard Height Toilet,Walk in Shower Home Equipment Four Wheel Walker,Bedside Commode,Raised Toilet Seat w/ Armrests,Shower Seat with Backrest,Hand Held Shower Employment Status Retired Additional Social History Comment Pt lives with his two daughters and his spouse, Laurie, who has Alzheimer's. Much of the DME listed above is for Laurie but pt is able to use as needed. His daughters Lynn and Munira provide 24/7 care for pt and his spouse. M2 PT-IP Current Condition Start: 07/03/21 09:18 Freq: NEEDED Status: Active Protocol: Document 07/03/21 10:24 AW (Rec: 07/03/21 10:35 AW [id number]) Physical Therapy Current Condition Current Condition Evaluation Date 07/03/21 Treatment Diagnosis acute encephalopathy vs dementia; weakness; near falls Onset Date about a month M3 PT-IP Subjective Start: 07/03/21 09:18 Freq: NEEDED Status: Active Protocol: Document 07/03/21 10:24 AW (Rec: 07/03/21 10:35 AW [id number]) Subjective Physical Therapy Visit Type Type Initial Evaluation Visit Start Time 09:52 Visit Stop Time 10:24 Total Visit Minutes 32 Number of RELIGIOUS ASSISTANT Visits 0 Physical Therapy Visit Comments Patient Comments Pt is willing to participate with PT Patient Goals Pt's daughter, Lynn, hopes pt can return home. She is open to home health therapies. Therapy Pain Assessment Pain When Pain Assessed During Mobility Pain Present Pain Present Denied Pain M4 PT-IP Mobility and Gait Start: 07/03/21 09:18 Freq: NEEDED Status: Active Protocol: Document 07/03/21 10:24 AW (Rec: 07/03/21 13:27 AW [id number]) PT-Bed Mobility Assessment Sit to Supine Sit to Supine Standby Assistance PT-Transfer Assessment Sit to and From Stand Sit to and from Stand Standby Assistance Equipment Transfer Assistive Device None,Gait Belt Orthotic/Prosthetic Devices or Brace: No Transfers Transfer Destination Chair Transfer Technique Stand Step Pivot Transfer Ability Level of Assist Contact Guard Assistance Comments Mobility Comments Pt was lying in bed as PT arrived. BP 97/50 HR 89. Pt sat up EOB SBA and had no complaints. He stood SBA and transferred to the chair 5 feet from the bed CGA due to mild unsteadiness and halting gait. Pt stood again and ambulated in the room without AD CGA. Pt then used FWW to ambulate 100 feet SBA except CGA during turns. Pt was able to return to the room and sit on the chair SBA. BP was 94/49 HR 91 after activity. Pt's daughter had arrived during mobility assessment and stayed in the room. PT instructed daughter to alert nursing if leaving as pt would require chair alarm. Gait Assessment Gait Gait Assistance Required: Standby Assistance,Contact Guard Assist Distance (Feet) 100 Assistive Devices Assistive Device Gait Belt,Front Wheeled Walker Orthotic/Prosthetic Devices or Brace: No Gait Deviations General Gait Pattern Decreased Stride Length, Decreased Feet Clearance,Wide Based Gait Factors Limiting Gait Function Factors Limiting Gait Function Decreased Strength,Poor Balance,Poor Safety Awareness Comments Gait Comments Pt ambulated with FWW SBA with occasional CGA during turns. EDUARDA was wide and step lengths were inconsistent. Stair Climbing Assessment Comments Stair Climbing Comments Not assessed. PT-Balance Assessment Sitting Balance and Reactions Static Sitting Balance Ability Good Dynamic Sitting Balance Ability Fair Standing Balance and Reactions Static Standing Balance Ability Fair Dynamic Standing Balance Ability Fair Device Used FWW M5 PT-IP Objective Assessments Start: 07/03/21 09:18 Freq: NEEDED Status: Active Protocol: Document 07/03/21 10:24 AW (Rec: 07/03/21 13:27 AW [id number]) Orientation Orientation/Cognition Level of Alertness Alert Orientation Name,Year Language Function Ability Uruguayan as Second Language, Hard of Hearing Safety Awareness Decreased Safety Awareness Memory Description Short Term Impaired Gross Range of Motion Lower Extremity ROM Assessment Within Functional Limits Strength Lower Extremity Strength Assessment Bilaterally Impaired Hip 4/5 Knee 4/5 ext; 4-/5 flex Sensation Assessment Sensation Gross Sensation WNL Muscle Tone Muscle Tone WNL Yes M6 PT-IP Treatment Start: 07/03/21 09:18 Freq: NEEDED Status: Active Protocol: Document 07/03/21 10:24 AW (Rec: 07/03/21 10:36 AW [id number]) Physical Therapy Treatment Education Education Provided Safety Other Treatments Other Treatment Performed Educated pt and his daughter on PT recommendation for use of a walker at this time. Pt is somewhat resistant but daughter states he is more likely to listen to a HH provider than to her. M7 PT-IP Assessment and Plan Start: 07/03/21 09:18 Freq: NEEDED Status: Active Protocol: Document 07/03/21 10:24 AW (Rec: 07/03/21 13:27 AW [id number]) PT Summary Assessment and Plan Potential Rehabilitation Potential Good Summary Impairments Strength,Balance,Cognition, Transfers,Gait Assessment Summary Jamari is an 81 yo man admitted with encephalopathy vs rapidly progressing dementia. Per his daughter's reports, he has required increased assist in the past one month but his baseline is independent without assistive device. On assessment, pt presents with decreased BLE strength and unsteady gait without AD which improves with use of FWW. Pt has his two daughters at home to provide assist. PT anticipates he will be safe to discharge home with 24/ assist and home health PT to progress his strength and mobility independence. Goals Bed Mobility Goal Independent Transfer Goal Independent,Front Wheeled Walker Gait Goal Independent,Front Wheel Walker Gait Distance 200 Other Goals - up/down 2 steps no rail CGA or less Days to Meet Goals 3 Frequency of Treatment Frequency Of Treatment Once a Day Treatment Plan Physical Therapy Treatment Plan Bed Mobility Training,Transfer Training,Gait Training, Therapeutic Exercise,Balance Retraining,Discharge Planning, Hot or Cold Pack,Neuromuscular Re-ed Other Recommendations and Next Treatment continue gait training with Focus FWW; stairs; sit to stands; sitting/standing ther ex for BLE strength Precautions Other Precautions falls risk Recommendations To Nursing Amount of Assist Needed 1 Person Assist Discharge Recommendations PT Discharge Recommendations Home with 24/ Assist Available,Home Health Transportation Needs at Discharge Private Vehicle
--- NOTE | 2021-07-03 11:27 | OT.IP.EVAL ---
Past Medical History (Last Reviewed 07/03/21 @ 00:32 by Benjamin Rehman DO) Diabetes Hyperlipidemia Hypertension No pertinent past surgical history Surgical History (Last Reviewed 07/03/21 @ 00:32 by Benjamin Rehman DO) No pertinent past surgical history Occupational Therapy Inpatient Evaluation/Re-Eval M1 PT/OT-IP Prior Functional Status Start: 07/03/21 09:18 Freq: NEEDED Status: Active Protocol: Document 07/03/21 11:33 CGR (Rec: 07/03/21 11:57 CGR [id number]) Medical Review Prior Functional Status Medical History Reviewed Yes Communication Pt's first language is Romanian. He is [place] and typically uses B ROUSE. He is able to make his needs known. Mobility and Gait Pt uses no AD at baseline and has had no falls. He is typically able to get up and down the two stairs for home entry. In the past one month, he has been increasingly unsteady, especially in turns. His family has encouraged him to use a 4WW but he is resistant. Pt has a reccumbent bike at home which he rides 20 minutes daily. Activities of Daily Living and IADL's Pt is independent with ADL's at baseline. In the past month , his daughters have provided assist with showers (seated) due to increasing unsteadiness . Daughter states that pt is increasingly resistant to showering and other hygiene. Prior Functional Level (Other details) Pt and his live in [place] and are staying for an extended stay here with their daughters. One of the daughters is always home with the pt. Social History Household Members spouse,family,children Living Arrangements House Number of Floors (Floors) One Floor Number of Stairs To Enter/Railing? 2 FADY with no rail Home Environment Standard Height Toilet,Walk in Shower Home Equipment Four Wheel Walker,Bedside Commode,Raised Toilet Seat w/ Armrests,Shower Seat with Backrest,Hand Held Shower Employment Status Retired Additional Social History Comment Pt lives with his two daughters and his spouse, Laurie, who has Alzheimer's. Much of the DME listed above is for Laurie but pt is able to use as needed. His daughters Lynn and Munira provide 24/7 care for pt and his spouse. M1 PT/OT-IP Prior Functional Status Start: 07/03/21 11:32 Freq: NEEDED Status: Active Protocol: Document 07/03/21 11:33 CGR (Rec: 07/03/21 11:57 R [id number]) Medical Review Prior Functional Status Medical History Reviewed Yes Communication Pt's first language is Romanian. He is [place] and typically uses B ROUSE. He is able to make his needs known. Mobility and Gait Pt uses no AD at baseline and has had no falls. He is typically able to get up and down the two stairs for home entry. In the past one month, he has been increasingly unsteady, especially in turns. His family has encouraged him to use a 4WW but he is resistant. Pt has a reccumbent bike at home which he rides 20 minutes daily. Activities of Daily Living and IADL's Pt is independent with ADL's at baseline. In the past month , his daughters have provided assist with showers (seated) due to increasing unsteadiness . Daughter states that pt is increasingly resistant to showering and other hygiene. Prior Functional Level (Other details) Pt and his live in [place] and are staying for an extended stay here with their daughters. One of the daughters is always home with the pt. Social History Household Members spouse,family,children Living Arrangements House Number of Floors (Floors) One Floor Number of Stairs To Enter/Railing? 2 FADY with no rail Home Environment Standard Height Toilet,Walk in Shower Home Equipment Four Wheel Walker,Bedside Commode,Raised Toilet Seat w/ Armrests,Shower Seat with Backrest,Hand Held Shower Employment Status Retired Additional Social History Comment Pt lives with his two daughters and his spouse, Laurie, who has Alzheimer's. Much of the DME listed above is for Laurie but pt is able to use as needed. His daughters Lynn and Munira provide 24/7 care for pt and his spouse. M2 OT-IP Current Condition Start: 07/03/21 11:32 Freq: Status: Active Protocol: Document 07/03/21 11:33 CGR (Rec: 07/03/21 11:57 CGR [id number]) Occupational Therapy Current Condition Current Condition Evaluation Date 07/03/21 Treatment Diagnosis generalized weakness Diagnosis Onset Date 07/02/21 M3 OT- IP Subjective and Pain Start: 07/03/21 11:32 Freq: Status: Active Protocol: Document 07/03/21 11:33 CGR (Rec: 07/03/21 11:57 CGR [id number]) OT- Subjective Occupational Therapy Visit Type Type Initial Evaluation Visit Start Time 11:11 Visit Stop Time 11:27 Total Visit Minutes 16 Notes Daughter present throughout OT Pain Assessment Pain When Pain Assessed At Rest Pain Present Pain Present Denied Pain M4 OT- IP ADL's Start: 07/03/21 11:32 Freq: Status: Active Protocol: Document 07/03/21 11:33 CGR (Rec: 07/03/21 11:57 CGR [id number]) OT [id number] Comments OT Self-Feeding Comments not meal time. Daughter states that pt is able to feed himself and even makes himself breakfast of potatos, onions, etc. OT ADL-Grooming General Evaluation Grooming Ability Standby Assistance Areas Needing Assistance Face Washing Comments OT Grooming Comments standing at sink OT ADL-Oral Care General Eval Oral Care Ability Standby Assistance Areas of Assistance Brushing Teeth Comments Oral Care Comments standing at sink. OT ADL-Dressing Comments OT Dressing Comments not performed OT ADL-Toileting General Evaluation Toileting Ability Standby Assistance Comments OT Toileting Comments simulated seated on toilet OT ADL-Bathing Comments OT Bathing Comments not performed M5 OT- IP IADL's Start: 07/03/21 11:32 Freq: Status: Active Protocol: Document 07/03/21 11:33 CGR (Rec: 07/03/21 11:57 CGR [id number]) OT-Instrumental Activities of Daily Living Deficits IADL Deficits Identified Deficits Home Safety Awareness Awareness of Need for Assistance at Home Good Awareness Ability to Problem Solve Emergency Unable to Problem Solve Situations Medication Management Medication Management Caregiver Administers Medication Management Comments Daughter states that pt is sometimes resistant to taking medications but typically does ok if they are handed to him to take. Money Management Money Management Caregiver Provides Assistance Meal Preparation Meal Preparation Caregiver Provides Assist Meal Preparation Comments Daughter states that pt still likes to cook breakfast some times. Sales Training Coordinator Sales Training Coordinator Caregiver Provides Assist Driving Driving Comments Pt does not drive. M6 OT- IP Functional Cognition Start: 07/03/21 11:32 Freq: Status: Active Protocol: Document 07/03/21 11:33 CGR (Rec: 07/03/21 11:57 CGR [id number]) Cognitive Factors Limiting Selfcare Function Cognitive Ability Level of Alertness Alert Patient Orientation Name,Year,Place,Situation Attention Span Ability Capable of Focused Attention, Capable of Sustained Attention Ability to Follow Commands Able to Follow One Step Commands with Increased Time, Able to Follow One Step Commands with Repetition Cognitive Comments Cognitive Assessment Comments pt would benefit from formal cog assessment to document a baseline level. OT- Vision and Hearing OT- Hearing Assessment OT- Hearing Assessment Hearing Impaired,Use of Hearing Aids OT- Vision Assessment Visual Attentiveness WFL Occular Pursuits WFL Vision Assessment Comments Pt wears bifocals at baseline. M7 OT- IP Mobility and Balance Start: 07/03/21 11:32 Freq: Status: Active Protocol: Document 07/03/21 11:33 CGR (Rec: 07/03/21 11:57 R [id number]) OT-Transfer Assessment Sit to and From Stand Sit to and from Stand Standby Assistance,Contact Guard Assistance Transfers Transfer Ability Standby Assistance,Contact Guard Assistance Technique Transfer Destination Chair,Toilet Transfer Technique Stand Step Pivot Devices Transfer Assistive Devices Gait Belt Comments Mobility Comments Pt mobilized around the room with gait belt and no other DME. Pt's daughter states that he is typically more upright with his mobility but otherwise appears close to his baseline. OT- Gait Assessment Gait Gait Assistance Required: Standby Assistance,Contact Guard Assist Assistive Devices Assistive Device Gait Belt OT- Balance Assessment Sitting Balance and Reactions Static Sitting Balance Ability Normal Dynamic Sitting Balance Ability Good M8 OT- IP Objective Assessments Start: 07/03/21 11:32 Freq: Status: Active Protocol: Document 07/03/21 11:33 CGR (Rec: 07/03/21 11:57 R [id number]) OT Gross Range of Motion Upper Extremity Range of Motion Assessment Within Functional Limits OT Strength Upper Extremity Strength Assessment Within Functional Limits Comments Strength Comments 4+/5 OT- Coordination Assessment Upper Extremity Finger to Nose Test Within Functional Limits Finger Tapping Test Within Functional Limits OT-Muscle Tone Assessment Muscle Tone WNL Yes OT Sensation Assessment Edema Edema Absent M9 OT- IP Assessment and Plan Start: 07/03/21 11:32 Freq: Status: Active Protocol: Document 07/03/21 11:33 CGR (Rec: 07/03/21 11:57 R [id number]) OT Summary Assessment and Plan Potential Rehabilitation Potential Good Analytic Complexity at Evaluation Moderate Summary OT Impairments Balance,Functional Cognition, Functional Mobility,Grooming, Dressing,Toileting,Bathing, Toilet Transfers,Shower Transfers,Activity Tolerance Progress Towards Goals Progressing Toward Goals Assessment Summary Pt presents as a moderate complexity evaluaiton s/p admit for generalized weakness . Per daughter pt appears near his baseline but still with concerns for his ability to care for himself. Pt may benefit from a formal cog assessment to document his current cognitive level and an assessment of his bathing ability. Recommendation is for return to home with medically stable with supportive family . Discussed pt's future needs for care with daughter who was present. Goals Self-Feeding Goal Independent Grooming Goal Independent Dressing Goal Independent Toileting Goal Independent Bathing Goal Minimal Assistance Toilet Transfer Goal Independent Shower Transfer Goal Independent Days to Meet Goals 5 Frequency of Treatment Frequency Of Treatment Once a Day Treatment Plan OT Treatment Plan ADL Training,Functional Cognition Training,Functional Mobility,Patient/Family Education,Discharge Planning Other Treatment Recommendations and Next cog assessment and shower. Treatment Focus Discharge Recommendations OT Discharge Recommendations Home with / Assist Available Transportation Needs at Discharge Private Vehicle
[2021-07-03] MEDS: MAGNESIUM CHLORIDE 64 MG TABLET 128 MG PO (11:28)
--- NOTE | 2021-07-03 15:59 | CM.DANOTE ---
DCP: Case received, EMR reviewed and check on patient. Patient is currently sleeping, but was able to obtain information from P.T and O.T. notes in order to complete DCP assessment. Daughter not currently in the room. Patient is an 81 year old male who admitted yesterday evening to the care of the hospitalist team. PCP: Dr. Renae. Payer: confirmed: Medicare/ for Life. Patient came to the hospital via private vehicle secondary to increased halluciations, increasing weaknes. Patient had been here recently at the ER. According to notes, patient sleeping 20 hours a day with a decrease in appetite. Patient has history of diabetes, HTN. Patient was admitted with weakness and generalized decline. Patient also has progressive dementia, as well as acute encephalopathy. Patient is a full code. Attempted to meet with patient, he was sleeping at window seat in his room, daughter stepped out for a while, according to nurse. According to P.T. notes, patient's first language is [place], and he is hard of hearing. Patient has no history of falls, but has been unsteady within the last month. Family has encouraged patient to use FWW, but he is resistant. He rides a reccumbent bike at home 20 minutes daily. Daughters do provide some assist with showers due to unsteadiness. Patient and live in [place], and are staying for an extended stay here with daughters. According to notes, one of the daughters is always with the patient. Patient lives with his two daughters and spouse, Laurie, who has Alzheimers. Most of the DME equipment belongs with the . P: DCP to follow and will attempt to meet with daughter tomorrow to discuss home health and any resources needed. Plan is home when stable, P.T. recommends home with 24 hour assist. Giselle Forbes RN/[employer] Puller [employer] Coiler Discharge Planning/Care Management CM Discharge Assessment Start: 07/03/21 15:56 Freq: Status: Active Protocol: Document 07/03/21 15:56 (Rec: 07/03/21 15:59 [id number]) Discharge Planning Assessment Assigned Air Pollution Engineer Giselle Forbes RN/[employer]iler Advance Directives? No History Provided By Family Member,Medical Record Prior Living Arrangements House Household Members spouse,family,children Type of transporation used prior to Relies on Others admit Independent with ADL's Yes Is patient alert and oriented? To self Needs Assistance With Bathing,Meal Prep,Managing Medications,Home Chores / Shopping Caregiver for Another No DME Already Rented / Owned FWW / Walker Patient/Family Preference Home with Home Health Comment According to notes from P.T, family is interested in home health Barriers to Discharge No Comment According to P.T. notes, patient has supportive family members. Discharge Plan Home with Home Health Transportation Arrangement Family Referrals Initiated Other Additional Comment Will plan on meeting with patient's family and discuss home health services. If patient plan is home with home health No : Has signed face to face form been completed? Whiteboard Updated in Patient Room with Yes name and ext. # of Air Pollution Engineer Review Status In Process Next Review Type Continued Stay Review
--- NOTE | 2021-07-03 17:33 | DIET.CONS ---
Dietary Consultation Note Admission Date: 07/02/2021 23:22 Assessment: 81y M admitted for difficulty eating and hallucinations referred to nutrition for recent weight loss and MNA score of 8. Met c pt and his daughter Lynn at bedside. Most of consult c daughter, though pt would respond to questions about food preferences intermittently. Pts daughter noticed her dad starting to decline 1mo ago with reduced appetite taking steep downturn a week ago. Pt c DM2 (A1c 7.9) takes metformin and ozempic. Pts daughter reduced ozempic dose then eliminated completely secondary to its effect of increasing satiety. Pt did lose 20# initially 2-3y ago when starting this medication but was weight stable after that. Per chart review and information from Lynn, pt has lost 10# over past 1mo with 4% unintentional weight loss since ED admit 10 days ago (severe). Under normal circumstances pt was good eater enjoying shrimp, processed meats, fruits, and veggies. Pt follows gluten-free diet and eats very little meat, dislikes beef, chicken, and salmon, dislikes yogurt, cottage cheese. For the past month, pts daughter has been trying to make him eggs, lentil soup, put collagen in coffee, and give him sweets to spur appetite. Of note, pts labs came back with B12 >1,000 Ht: 167.64 cm Wt: 69.6 kg (-4% in 10d, severe) BMI: 24.8 UBW: 75kg Last BM: 07/02/21 (07/02/21 23:31) MNA: 8 Jamie Score: 20 Diet: 07/03/21 Lunch Carbohydrate Consistent Diet Diet Modifications: GLUTEN FREE Carbohydrate level: Large (4 CHO) Labs: RBC 3.32 X10^6/uL (4.5-5.9) L 07/03/21 04:54 Hgb 9.0 g/dL (13.5-17.5) L 07/03/21 04:54 Hct 27.1 % (41-53) L 07/03/21 04:54 Creatinine 0.92 mg/dL (0.66-1.25) 07/03/21 04:54 Hemoglobin A1c 7.9 % (4.0-6.0) H 07/03/21 04:54 Lactate 1.7 mmol/L (0.7-2.1) 07/02/21 18:49 Nutrition Diagnosis: Moderate Acute Protein Calorie Malnutrition r/t reduced appetite and altered mental status aeb 4% unintentional weight loss in 1w, pt with progressively less PO x1mo, pt admitted for hallucinations oriented to person only. Interventions: 1. Worked c pts daughter to curate meal plan for in hospital and spur ideas for supporting pts nutrition status at home with focus on healthy fats, protein and items pt is most likely to consume. Discussed keeping bowl of nuts near pts chair for frequent visual cuing to snack on nutrient and calorically dense items. B: egg c breakfast potatoes and chicken sausage L: lentil soup c mashed potatoes and broccoli D: tuna sandwich c fruit cup and tomato/cucumber salad Trialing blueberry protein smoothie c dinner tonight for acceptance. EER: 2100kcals (30kcal/kg), 70g-90g PRO (1-1.3g/kg) Monitoring/Evaluations: POs, smoothie tolerance, mental status changes Electronically Signed by: Jocelin Head 07/03/21 17:33 Clinical Dietitian [address] [address]
--- NOTE | 2021-07-03 18:27 | P.PN_ITS ---
Subjective Subjective Date Patient Seen: 07/03/21 Interval history: BRIEF HPI THIS IS A 81-YEAR-OLD MALE ADMITTED TO THE HOSPITAL WITH ALTERED MENTAL STATUS CAUSE HAS BEEN ON CLEAR SO FAR IMPROVING MENTATION PER PATIENT AND FAMILY AT BEDSIDE TODAY DENIES ANY INCREASING CONFUSION AWARE THAT HE IS IN THE HOSPITAL DENIES ANY HEADACHES OR MIGRAINE NO CHEST PAIN. NO SHORTNESS OF BREATH SPOKE TO FAMILY AT BEDSIDE Exam Vital Signs (past 8 hours): - 07/03/21 11:58 07/03/21 12:00 07/03/21 16:00 Temperature 97.6 F 97.2 F L Pulse Rate 79 75 Respiratory Rate 19 16 Blood Pressure 109/57 L 98/45 L Pulse Oximetry 97 97 98 Oxygen Delivery Method Room Air Oxygen Flow Rate 0 Narrative Exam Narrative: NO ACUTE DISTRESS. PATIENT IS ALERT ORIENTED X3. VITAL SIGNS STABLE HEAD ATRAUMATIC NORMOCEPHALIC NECK : SUPPLE WITHOUT ADENOPATHY NO CAROTID BRUITS EYE: EOMI, PERRLA, NORMAL CONJUNCTIVA; NO JAUNDICE CHEST: REGULAR RATE. NO RUBS. PMI IS NON DISPLACED. NO MURMURS; NORMAL S1- S2 PULMONARY: DECREASED BS OVER THE BASES. MILD BIBASILAR CRACKLES NOTED; NO INCREASED DULLNESS TO PERCUSSION ABDOMEN: SOFT. NONTENDER. NONDISTENDED. BOWEL SOUNDS ARE PRESENT IN ALL 4 QUADRANTS. NO MASS. EXTREMITIES: NO EDEMA.. NO CYANOSIS CLUBBING NOTED. NEURO: CRANIAL NERVES 2-12 GROSSLY INTACT. NO FOCAL NEUROLOGICAL DEFICIT NOTED. MSK: NORMAL RANGE OF MOTION FOR AGE. NO JOINT EFFUSION. SKIN: NORMAL FOR ETHNICITY; NO ECCHYMOSIS. NO LESION. GOOD TURGOR.; NO RASHES : NORMAL EXTERNAL GENITALIA. PSYCH : APPROPRIATE MOOD AND AFFECT. ALERT AWAKE ORIENTED X3 Objective Labs Result Diagrams: 07/03/21 04:54 07/03/21 04:54 Labs: Laboratory Results - last 24 hr 07/02/21 07/02/21 07/02/21 18:49 18:49 18:49 WBC 19.6 H RBC 4.09 L Hgb 11.2 L Hct 33.2 L MCV 81.1 MCH 27.3 MCHC 33.7 RDW 13.9 Plt Count 549 H Neut % (Auto) 64.5 Lymph % (Auto) 21.6 L [place] % (Auto) 9.6 Eos % (Auto) 2.7 Baso % (Auto) 1.6 Neut # (Auto) 21947 H Lymph # (Auto) 4200 [place] # (Auto) 1900 H Eos # (Auto) 500 H Baso # (Auto) 300 H Total Counted Seg Neutrophils % Band Neutrophils % Lymphocytes % (Manual) Monocytes % (Manual) Eosinophils % (Manual) Basophils % (Manual) Neutrophils # (Manual) RBC Morphology Sodium 133 L Potassium 4.5 Chloride 99 Carbon Dioxide 25 BUN 24 H Creatinine 1.00 Estimated GFR > 60 BUN/Creatinine Ratio 24.0 H Glucose 232 H Hemoglobin A1c Lactate 1.7 Calcium 9.1 Magnesium 1.5 L Total Bilirubin 0.4 AST 72 H ALT 97 H Alkaline Phosphatase 108 Total Creatine Kinase 33 L CK-MB (CK-2) TNP CK-MB (CK-2) Rel Index TNP Troponin I < 0.012 Total Protein 7.6 Albumin 3.6 Globulin 4.0 Albumin/Globulin Ratio 0.9 L Lipase 128 Vitamin B12 TSH Ur Bilirubin Confirm Urine RBC Urine WBC Ur Squamous Epith Cells Amorphous Sediment Urine Bacteria Hyaline Casts Granular Casts Urine Mucus Ur Culture Indicated? SARS-CoV-2 (PCR) 07/02/21 07/02/21 07/03/21 21:30 21:57 04:54 WBC 14.3 H RBC 3.32 L Hgb 9.0 L Hct 27.1 L MCV 81.7 MCH 27.2 MCHC 33.3 RDW 14.2 Plt Count 472 H Neut % (Auto) Not Reportable Lymph % (Auto) Not Reportable [place] % (Auto) Not Reportable Eos % (Auto) Not Reportable Baso % (Auto) Not Reportable Neut # (Auto) Lymph # (Auto) Not Reportable [place] # (Auto) Not Reportable Eos # (Auto) Baso # (Auto) Not Reportable Total Counted 100 Seg Neutrophils % 62.0 Band Neutrophils % 2.0 L Lymphocytes % (Manual) 23.0 L Monocytes % (Manual) 8.0 Eosinophils % (Manual) 4.0 Basophils % (Manual) 1.0 Neutrophils # (Manual) 9152 H RBC Morphology Normal morphology Sodium Potassium Chloride Carbon Dioxide BUN Creatinine Estimated GFR BUN/Creatinine Ratio Glucose Hemoglobin A1c Lactate Calcium Magnesium Total Bilirubin AST ALT Alkaline Phosphatase Total Creatine Kinase CK-MB (CK-2) CK-MB (CK-2) Rel Index Troponin I Total Protein Albumin Globulin Albumin/Globulin Ratio Lipase Vitamin B12 TSH Ur Bilirubin Confirm Negative Urine RBC 0-1/hpf Urine WBC 0-1/hpf Ur Squamous Epith Cells 0-1 /hpf Amorphous Sediment 1+ Urine Bacteria Few (2-10) H Hyaline Casts 1-5/lpf Granular Casts 0-1/lpf Urine Mucus 2+ H Ur Culture Indicated? Culture not indicate SARS-CoV-2 (PCR) Negative 07/03/21 07/03/21 07/03/21 04:54 04:54 04:54 WBC RBC Hgb Hct MCV MCH MCHC RDW Plt Count Neut % (Auto) Lymph % (Auto) [place] % (Auto) Eos % (Auto) Baso % (Auto) Neut # (Auto) Lymph # (Auto) [place] # (Auto) Eos # (Auto) Baso # (Auto) Total Counted Seg Neutrophils % Band Neutrophils % Lymphocytes % (Manual) Monocytes % (Manual) Eosinophils % (Manual) Basophils % (Manual) Neutrophils # (Manual) RBC Morphology Sodium 134 L Potassium 4.2 Chloride 103 Carbon Dioxide 27 BUN 18 Creatinine 0.92 Estimated GFR > 60 BUN/Creatinine Ratio 19.6 Glucose 188 H Hemoglobin A1c 7.9 H Lactate Calcium 8.0 L Magnesium 1.5 L Total Bilirubin AST ALT Alkaline Phosphatase Total Creatine Kinase CK-MB (CK-2) CK-MB (CK-2) Rel Index Troponin I Total Protein Albumin Globulin Albumin/Globulin Ratio Lipase Vitamin B12 TSH 1.50 Ur Bilirubin Confirm Urine RBC Urine WBC Ur Squamous Epith Cells Amorphous Sediment Urine Bacteria Hyaline Casts Granular Casts Urine Mucus Ur Culture Indicated? SARS-CoV-2 (PCR) 07/03/21 04:54 WBC RBC Hgb Hct MCV MCH MCHC RDW Plt Count Neut % (Auto) Lymph % (Auto) [place] % (Auto) Eos % (Auto) Baso % (Auto) Neut # (Auto) Lymph # (Auto) [place] # (Auto) Eos # (Auto) Baso # (Auto) Total Counted Seg Neutrophils % Band Neutrophils % Lymphocytes % (Manual) Monocytes % (Manual) Eosinophils % (Manual) Basophils % (Manual) Neutrophils # (Manual) RBC Morphology Sodium Potassium Chloride Carbon Dioxide BUN Creatinine Estimated GFR BUN/Creatinine Ratio Glucose Hemoglobin A1c Lactate Calcium Magnesium Total Bilirubin AST ALT Alkaline Phosphatase Total Creatine Kinase CK-MB (CK-2) CK-MB (CK-2) Rel Index Troponin I Total Protein Albumin Globulin Albumin/Globulin Ratio Lipase Vitamin B12 > 1000 H TSH Ur Bilirubin Confirm Urine RBC Urine WBC Ur Squamous Epith Cells Amorphous Sediment Urine Bacteria Hyaline Casts Granular Casts Urine Mucus Ur Culture Indicated? SARS-CoV-2 (PCR) [facility] Medical History Diabetes Hyperlipidemia Hypertension Surgical History No pertinent past surgical history Family History Mother Diabetes mellitus Father Diabetes mellitus Other Congestive heart failure Hyperlipidemia Social History household members: spouse, family and children Smoking Status: Never smoker alcohol intake: current Assessment & Plan Assessment & Plan narrative: IMPRESSION POSSIBLE TOXIC ENCEPHALOPATHY. SOURCE OF INFECTION IS UNCLEAR WORKUP NEGATIVE SO FAR POSSIBLE UNDIAGNOSED DEMENTIA. OUTPATIENT UP INDICATED LEUKOCYTOSIS OF UNCLEAR CAUSE THROMBOCYTOSIS OF UNCLEAR CAUSE WELL ANEMIA. CONSIDER CHRONIC DISEASE HYPONATREMIA. NEXT SUFFICIENT TO CAUSE SIGNIFICANT CHANGE IN MENTATION PLAN MRI RESULTS NOTED WITHOUT SIGNIFICANT FINDINGS PATIENT REMAINED IMPROVEMENT ONLY LEUKOCYTOSIS NOTED ON ADMISSION HOWEVER NO SOURCE OF INFECTION COULD BE IDENTIFIED SO FAR URINALYSIS WITHOUT SIGNIFICANT FINDINGS AND NO SIGNIFICANT GROWTH IN CULTURE CT OF THE CHEST WELL CHEST X-RAY WITHOUT ACUTE FINDINGS PATIENT DOES NOT APPEAR TOXIC HIS LABS COULD REPRESENT A MILD CASE OF LYMPHOMA HOWEVER FURTHER WORKUP WILL NEED TO BE DONE. THIS COULD BE DONE OUTPATIENT. HE WAS STARTED ON ANTIBIOTICS ON ADMISSION WILL CONTINUE FOR A 24 HOURS IF CULTURES REMAIN NEGATIVE, WILL DISCONTINUE WILL ALSO CONSIDER REFERRING PATIENT TO ONCOLOGY FOR FURTHER WORKUP IF INDICATED WILL CONTINUE CURRENT MANAGEMENT FOR NOW OTHERWISE IF CONTINUE TO IMPROVE, LIKELY DISCHARGE IN NEXT 24 HOURS TO HOME WITH HOME HEALTH Time Spent With Patient Critical Care time: I spent a total of [] minutes of critical care time on this patient's care today; this time is exclusive of procedural time. Quality VTE Deep Vein Thrombosis/Pulmonary Embolism Present on Admission: No
[2021-07-04] VITALS: BP 110/50; PULSE 95; RESP 18; TEMP 36.9; O2SAT 93
[2021-07-04 04:00] VITALS: BP 125/62; PULSE 88; RESP 18; TEMP 36.7; O2SAT 96
[2021-07-04 05:39] LABS: Add Manual Diff / Slide Review NO; Basophils Absolute Auto 0 /uL (0-100); Basophils Percent Auto 0.2 % (0-2); Eosinophils Absolute Auto 600 /uL (0-450); Eosinophils Percent Auto 4.6 % (2-4); Hematocrit 28.8 % (41-53); Hemoglobin 9.7 g/dL (13.5-17.5); Lymphocytes Absolute Auto 3100 /uL (1100-4500); Lymphocytes Percent Auto 21.6 % (25-40); Mean Corpuscular HGB Conc 33.8 % (30-36); Mean Corpuscular Hemoglobin 27.7 PG (26-34); Mean Corpuscular Volume 81.8 fL (80-100); Monocytes Absolute Auto 1700 /uL (0-900); Monocytes Percent Auto 12.2 % (3-14); Neutrophils Absolute Auto 8700 /uL (1500-7000); Neutrophils Percent Auto 61.4 % (50-75); Platelet Count 500 X10^3/uL (150-400); Red Blood Cell Count 3.52 X10^6/uL (4.5-5.9); White Blood Cell Count 14.2 X10^3/uL (4.5-11.0)
[2021-07-04 06:07] LABS: BUN Creatinine Ratio 15.7 (6-22); Blood Urea Nitrogen 14 mg/dL (9-20); Calcium 8.4 mg/dL (8.4-10.2); Carbon Dioxide 27 mmol/L (22-32); Chloride 103 mmol/L (98-107); Estimated Glomerular Filt Rate > 60 mL/min (>60); Glucose 209 mg/dL (80-110); HEMOLYSIS < 15 (0-50); Magnesium 1.6 mg/dL (1.6-2.3); Potassium 4.7 mmol/L (3.4-5.1); Sodium 135 mmol/L (137-145)
[2021-07-04 08:00] VITALS: BP 102/39; PULSE 80; TEMP 36.1; O2SAT 97
[2021-07-04] MEDS: ENOXAPARIN 40 MG/0.4 ML SYRINGE SUBCUT (09:32)
[2021-07-04] MEDS: ATORVASTATIN 20 MG TABLET PO (09:32)
[2021-07-04 10:27] LABS: Lactate Dehydrogenase 364 U/L (313-618)
--- NOTE | 2021-07-04 11:07 | PT.IPTN ---
Physical Therapy Treatment Note M2 PT-IP Current Condition Start: 07/03/21 09:18 Freq: NEEDED Status: Active Protocol: Document 07/03/21 10:24 AW (Rec: 07/03/21 10:35 AW [id number]) Physical Therapy Current Condition Current Condition Evaluation Date 07/03/21 Treatment Diagnosis acute encephalopathy vs dementia; weakness; near falls Onset Date about a month M3 PT-IP Subjective Start: 07/03/21 09:18 Freq: NEEDED Status: Active Protocol: Document 07/04/21 10:43 KS (Rec: 07/04/21 12:10 KS [id number]) Subjective Physical Therapy Visit Type Type Treatment Note Visit Start Time 10:43 Visit Stop Time 11:07 Total Visit Minutes 24 Number of COMMERCIAL SALES DIRECTOR Visits 1 Physical Therapy Visit Comments Patient Comments Pt is willing to participate with PT Patient Goals Pt's daughter, Lynn, hopes pt can return home. She is open to home health therapies. M4 PT-IP Mobility and Gait Start: 07/03/21 09:18 Freq: NEEDED Status: Active Protocol: Document 07/04/21 10:43 KS (Rec: 07/04/21 12:10 KS [id number]) PT-Bed Mobility Assessment Supine to Sit Supine to Sit Standby Assistance Scooting Scooting to Edge of Bed Standby Assistance PT-Transfer Assessment Sit to and From Stand Sit to and from Stand Standby Assistance,1 Person Assistance Equipment Transfer Assistive Device Gait Belt,Front Wheeled Walker Orthotic/Prosthetic Devices or Brace: No Transfers Transfer Destination Chair Transfer Technique Pt ambulated w/ FWW Transfer Ability Level of Assist Contact Guard Assistance Comments Mobility Comments Pt laying on bench upon arrival from therapy and agreeable to ambulate. SBA for sup<>sit and sit<>stand w/ FWW. Pt then ambulated ~100 ft in room w/ FWW CGA and denied fatigue. No LOB, but pt w/ WBOS and decreased step length . He then sat in his chair SBA . Pt completed 1x10 bilateral ankle pumps, quad sets, and seated marches. Pt left in chair w/ alarm on and all needs in reach. Gait Assessment Gait Gait Assistance Required: Contact Guard Assist,1 Person Assist Distance (Feet) 100 Assistive Devices Assistive Device Gait Belt,Front Wheeled Walker Orthotic/Prosthetic Devices or Brace: No Gait Deviations General Gait Pattern Decreased Stride Length, Decreased Feet Clearance,Wide Based Gait Factors Limiting Gait Function Factors Limiting Gait Function Decreased Strength,Poor Balance,Poor Safety Awareness Comments Gait Comments Please refer to mobility section for details. Stair Climbing Assessment Comments Stair Climbing Comments Not assessed. PT-Balance Assessment Sitting Balance and Reactions Static Sitting Balance Ability Good Dynamic Sitting Balance Ability Fair Standing Balance and Reactions Static Standing Balance Ability Fair Dynamic Standing Balance Ability Fair Device Used FWW M5 PT-IP Objective Assessments Start: 07/03/21 09:18 Freq: NEEDED Status: Active Protocol: Document 07/03/21 10:24 AW (Rec: 07/03/21 13:27 AW [id number]) Orientation Orientation/Cognition Level of Alertness Alert Orientation Name,Year Language Function Ability Uzbek as Second Language, Hard of Hearing Safety Awareness Decreased Safety Awareness Memory Description Short Term Impaired Gross Range of Motion Lower Extremity ROM Assessment Within Functional Limits Strength Lower Extremity Strength Assessment Bilaterally Impaired Hip 4/5 Knee 4/5 ext; 4-/5 flex Sensation Assessment Sensation Gross Sensation WNL Muscle Tone Muscle Tone WNL Yes M6 PT-IP Treatment Start: 07/03/21 09:18 Freq: NEEDED Status: Active Protocol: Document 07/04/21 10:43 KS (Rec: 07/04/21 12:10 KS [id number]) Physical Therapy Treatment Exercises Exercises Ankle Pumps,Quad Sets Education Education Provided Safety Other Treatments Other Treatment Performed Seated marching. Continued discussion of FWW for home use , pt agreeable. M7 PT-IP Assessment and Plan Start: 07/03/21 09:18 Freq: NEEDED Status: Active Protocol: Document 07/04/21 10:43 KS (Rec: 07/04/21 12:10 KS [id number]) PT Summary Assessment and Plan Potential Rehabilitation Potential Good Summary Impairments Strength,Balance,Cognition, Transfers,Gait Assessment Summary Pt SBA for transfers, CGA for 100 ft ambulation w/ FWW. Denied fatigue following ambulation and exercises. Decreased stride and WBOS increase risk for falls, pt should use FWW and is agreeable to use at home. He will benefit from HHPT to improve strength, balance, and functional mobility. Goals Bed Mobility Goal Independent Transfer Goal Independent,Front Wheeled Walker Gait Goal Independent,Front Wheel Walker Gait Distance 200 Other Goals - up/down 2 steps no rail CGA or less Days to Meet Goals 3 Frequency of Treatment Frequency Of Treatment Once a Day Treatment Plan Physical Therapy Treatment Plan Bed Mobility Training,Transfer Training,Gait Training, Therapeutic Exercise,Balance Retraining,Discharge Planning, Hot or Cold Pack,Neuromuscular Re-ed Other Recommendations and Next Treatment continue gait training with Focus FWW; stairs; sit to stands; sitting/standing ther ex for BLE strength Precautions Other Precautions falls risk Recommendations To Nursing Amount of Assist Needed 1 Person Assist Discharge Recommendations PT Discharge Recommendations Home with 10/09 Assist Available,Home Health Transportation Needs at Discharge Private Vehicle
[2021-07-04] MEDS: MAGNESIUM CHLORIDE 64 MG TABLET 128 MG PO (11:15)
[2021-07-04 11:58] VITALS: O2SAT 94
[2021-07-04 12:00] VITALS: BP 123/57; PULSE 91; RESP 16; TEMP 36.8; O2SAT 94; O2SAT 96
[2021-07-04] MEDS: CEFDINIR 300 MG CAPSULE PO (12:22)
--- NOTE | 2021-07-04 12:27 | PM.DS.1 ---
History of Present Illness History of Present Illness Date Patient Seen: 07/04/21 Chief complaint: Won't eat, hallucinating, weakness Narrative: History of Present Illness Date Patient Seen: 07/03/21 Time Patient Seen: 00:28 Chief complaint: Won't eat, hallucinating, weakness Narrative: This is an 81-year-old male with a past medical history of diabetes, hypertension, hyperlipidemia who presented with about a month of worsening confusion according to his daughter.? Patient was brought into the emergency room about a week ago, and was discharged home after no overt etiologies were found.? He has been having mild diarrhea but also has a gluten intolerance according to his daughter, and has had a negative infectious evaluation with his new primary provider.? He has had more unsteadiness with ambulation according to his daughter and has nearly fallen he couple of times, predominantly with turns.? She denies any fevers, chills.? He had a mild case of COVID-19 back in February, he was not admitted to the hospital and the daughter reports that he is vaccinated.? Over the past week, his daughter reports a lack of appetite and she has been trying to get him any nutrition.? She has held some of his diabetes medications recently because of his lack of appetite, and has been feeding him a lot of fruits and sugary drinks to get him any sort of nutrition. She also notes over the past 3 days she has seen him waving at no one, and when she asks what he's doing he responds that he's waving at his whom is not there. In the emergency room, he was mildly tachycardic but the remainder of his vital signs were unremarkable.? Initial laboratory evaluation showed a leukocytosis with WBC of 19.6, hemoglobin was 11.2, and platelet count was 549.? Chemistries revealed a mild hyponatremia with sodium of 133, glucose was elevated at 232.? Magnesium was slightly low at 1.5, there was a mild transaminitis with AST of 72, and ALT of 97.? Troponin was negative.? Urinalysis showed no evidence of infections with 0-1 rbc's and wbc's.? COVID-19 testing was negative.? He had a CT scan of his head in the emergency room which showed age related degenerative changes.? Chest x-ray was unremarkable.? He had a CT chest abdomen pelvis with his primary care provider which showed no acute findings. Discharge Providers Provider Date of admission: 07/02/21 23:22 Discharge Date: 07/04/21 Primary care physician: Rubio Renae MD Consults: 07/03/21 00:55 Consult to Occupational Therapy Evaluate & Treat Comment: Physician Instructions: Evaluate and treat Consult to Physical Therapy Evaluate & Treat Comment: Physician Instructions: Evaluate and Treat 07/03/21 00:58 Consult to Dietitian, Adult Routine Comment: Reason For Exam: malnutrition Consult to Pastoral Services Routine Comment: per request Discharge provider: Guadalupe Elkins, Summary Hospital Course Discharge Diagnosis: ? POSSIBLE TOXIC ENCEPHALOPATHY. ? SOURCE OF INFECTION IS UNCLEAR ? WORKUP NEGATIVE SO FAR; RESOLVING ?POSSIBLE UNDIAGNOSED DEMENTIA.? OUTPATIENT WORK UP INDICATED WITH NEUROLOGY ?LEUKOCYTOSIS OF UNCLEAR CAUSE ; INFECTIOUS PROCESS VS OTHER ?THROMBOCYTOSIS OF UNCLEAR CAUSE WELL; INFECTIOUS PROCESS VS OTHER ?ANEMIA.? CONSIDER CHRONIC DISEASE ?HYPONATREMIA.? NOT SUFFICIENT TO CAUSE SIGNIFICANT CHANGE IN MENTATION Hospital Course: THIS IS A PLEASANT 81-YEAR-OLD MAN ADMITTED TO THE HOSPITAL WITH CHANGE IN MENTATION. CAUSING HAS BEEN ON DETERMINED DUE TO OUR WORK UP BEING FAIRLY UNREMARKABLE. PATIENT HAS LEUKOCYTOSIS WELL THROMBOCYTOSIS. BLOOD CULTURES BEEN NEGATIVE TO DATE. NO CLEAR SIGN OF INFECTION AT THIS TIME. DOES HAVE GRAM-NEGATIVE BACILLI IN THE URINE BUT LESS THAN 50,000 CFU REPORTED. NO FEVER OR CHILLS. NO SWOLLEN LYMPH NODES REPORTED BY PATIENT. PATIENT HAD A CT SCAN OF THE ABDOMEN AND CHEST IN THE BEGINNING OF THE MONTH AND AGAIN NO SIGNIFICANT ABNORMALITIES REPORTED. HE DOES ENDORSE RECENT WEIGHT LOSS. 10-15 LB WEIGHT LOSS REPORTED. IN ANY CASE MENTATION APPEARED TO BE BACK TO BASELINE AT THIS TIME. MRI OF THE BRAIN WAS NEGATIVE FOR ANY ACUTE PROCESS. PATIENT WILL BE DISCHARGED ON ANTIBIOTICS FOR THE SUSPECTED URINARY TRACT INFECTION HE WILL BE DISCHARGED ON OMNICEF FOR ABOUT 7 DAYS. PRIMARY CARE TO FOLLOW URINE CULTURE CLOSELY. ADJUSTMENT TO ANTIBIOTICS COULD BE DONE OUTPATIENT IF INDICATED. PATIENT MAY NEED TO BE REFERRED TO HEMATOLOGY FOR FURTHER WORKUP IN REGARD TO HIS ELEVATED WHITE BLOOD CELL COUNT WELL ELEVATED PLATELET COUNT. WILL ALSO RECOMMEND TO REFER PATIENT TO NEUROLOGY FOR FURTHER TESTING. PATIENT COULD HAVE UNDERLYING DEMENTIA. I SPOKE TO PATIENT'S DAUGHTER AT BEDSIDE AT LENGTH IN REGARD TO THE CASE. ADDITIONAL MANAGEMENT PER CLINICAL COURSE Status at Discharge Cognitive/behavioral status at discharge: oriented Functional status at discharge: independent ambulation Overall status at discharge: patient is progressing back to baseline Time Spent with Patient Time spent: Greater than 30 minutes Exam Vital Signs (past 8 hours): - 07/04/21 08:00 07/04/21 11:58 Temperature 97.0 F L Pulse Rate 80 Blood Pressure 102/39 L Pulse Oximetry 97 94 Oxygen Delivery Method Room Air Oxygen Flow Rate 0 Narrative Exam Narrative: NO ACUTE DISTRESS.? PATIENT IS ALERT ORIENTED X3. VITAL SIGNS STABLE HEAD ATRAUMATIC NORMOCEPHALIC NECK : SUPPLE WITHOUT ADENOPATHY NO CAROTID BRUITS EYE:? EOMI, PERRLA, NORMAL CONJUNCTIVA; NO JAUNDICE CHEST:? REGULAR RATE.? ? NO RUBS.? PMI IS NON DISPLACED.? NO MURMURS; NORMAL S1-S2 PULMONARY:? DECREASED BS OVER THE BASES.? MILD BIBASILAR CRACKLES NOTED; NO INCREASED DULLNESS TO PERCUSSION ABDOMEN:? SOFT.? NONTENDER.? NONDISTENDED.? BOWEL SOUNDS ARE PRESENT IN ALL 4 QUADRANTS.? NO MASS. EXTREMITIES: NO EDEMA..? NO CYANOSIS CLUBBING NOTED. NEURO:? CRANIAL NERVES 2-12 GROSSLY INTACT. NO FOCAL NEUROLOGICAL DEFICIT NOTED. MSK:? NORMAL RANGE OF MOTION FOR AGE.? NO JOINT EFFUSION. SKIN:? NORMAL FOR ETHNICITY; NO ECCHYMOSIS.? NO LESION. ? GOOD? TURGOR.; NO RASHES :? NORMAL EXTERNAL GENITALIA. PSYCH :? APPROPRIATE MOOD AND AFFECT.? ALERT AWAKE ORIENTED X3 Objective Labs Result Diagrams: 07/04/21 05:11 07/04/21 05:11 Labs: Laboratory Results - last 24 hr 07/04/21 07/04/21 07/04/21 05:11 05:11 05:11 WBC 14.2 H RBC 3.52 L Hgb 9.7 L Hct 28.8 L MCV 81.8 MCH 27.7 MCHC 33.8 RDW 14.0 Plt Count 500 H Neut % (Auto) 61.4 Lymph % (Auto) 21.6 L Crane % (Auto) 12.2 Eos % (Auto) 4.6 H Baso % (Auto) 0.2 Neut # (Auto) 8700 H Lymph # (Auto) 3100 Crane # (Auto) 1700 H Eos # (Auto) 600 H Baso # (Auto) 0 Sodium 135 L Potassium 4.7 Chloride 103 Carbon Dioxide 27 BUN 14 Creatinine 0.89 Estimated GFR > 60 BUN/Creatinine Ratio 15.7 Glucose 209 H Calcium 8.4 Magnesium 1.6 Lactate Dehydrogenase 364 PFSH Medical History Diabetes Hyperlipidemia Hypertension Surgical History No pertinent past surgical history Family History Mother Diabetes mellitus Father Diabetes mellitus Other Congestive heart failure Hyperlipidemia Social History household members: spouse, family and children Smoking Status: Never smoker alcohol intake: current Discharge Plan Discharge Plan Patient Disposition: Home Health Service Discharge orders & Medications Prescriptions: New cefdinir 300 mg Capsule 300 mg PO BID Qty: 14 0RF aspirin [Aspirin Low Dose] 81 mg tablet,delayed release (DR/EC) 162 mg PO DAILY Qty: 60 2RF Continued metformin 500 mg Tablet Extended Release 24 Hr 1,000 mg PO BID 0RF atorvastatin 20 mg Tablet 20 mg PO DAILY 0RF semaglutide 1 mg/dose (2 mg/1.5 mL) Pen Injector 1 mg SUBCUT QWEEK 0RF Claritin 10 mg tablet 10 mg PO DAILY 0RF Vitamin D3 5,000 units tablet 5,000 units PO DAILY 0RF metoprolol succinate 25 mg tablet 25 mg PO DAILY 0RF Follow up/Referrals: Rubio Renae MD [Primary Care Provider] - Diet/Activity/Treatments Diet: Low-fat and Low-cholesterol Activity: TOLERATED Skin/Wound/Dressing Care Report to your healthcare provider any signs of infection, such as:: chills, fever and night sweats Discharge Data Primary Care Provider: Rubio Renae Attending Provider: Benjamin Rehman VTE Deep Vein Thrombosis/Pulmonary Embolism Present on Admission: No
--- NOTE | 2021-07-04 12:42 | CM.DPC ---
DCP Cont: Patient is to be discharged home today. Dr. Peters had just left room, had him sign a face to face for home health. Met with daughters, Lynn is contact. Discussed resources, asked about home health resources, they are interested. Agreed on nursing, P.T, O.T, and bath aide. Brought in a Medicare Choice List. They have decided on [facility]. Called Judy at [facility], updated her. Gave family a brochure, and faxed over face sheet, face to face, orders, therapy and dietary notes, DC Summary and H&P. They can see patient . P: Patient is to go home with [facility]. Giselle Forbes RN/Procurement Cost Coordinator
--- NOTE | 2021-07-04 13:12 | PC.NURSE ---
Pt dressed and discharged home with all belongings to be transported via pov with daughter. Pt IV and tele removed. Reviewed discharge instructions with pt and daughter. Discussed pt to follow up as directed, provided stroke education, provided education about encephalopathy and leukocytosis. Reviewed new medications, medication education, and medications to continue with pt and daughter. Pt taken out via wheelchair by RN.
== END 2021-07-04 13:05 | disposition home health service (06) ==
LOC: ED 23:15 → AC 23:23
PROVIDERS: Hospitalist; Admitting Provider Internal Medicine; Emergency Provider Emergency Medicine; PCP Internal Medicine; Referring Provider Emergency Medicine; Visit Provider Internal Medicine
DX: R53.1 Weakness (principal); D72.829 Elevated white blood cell count, unspecified; D75.839 Thrombocytosis, unspecified; D64.9 Anemia, unspecified; E87.1 Hypo-osmolality and hyponatremia; R74.01 Elevation of levels of liver transaminase levels; E83.42 Hypomagnesemia; E11.9 Type 2 diabetes mellitus without complications; I10 Essential (primary) hypertension; E78.5 Hyperlipidemia, unspecified; Z86.16 Personal history of COVID-19; Z79.84 Long term (current) use of oral hypoglycemic drugs; Z20.822 Contact with and (suspected) exposure to COVID-19
CPT/HCPCS: 36415; 70450; 70551; 71045; 80048; 80053; 81003; 81015; 82550; 82607; 82962; 83036; 83605; 83615; 83690; 83735; 84443; 84484; 85007; 85025; 87040; 87077; 87086; 87186; 87635; 93005; 94760; 96365; 96372; 97116; 97162; 97166; 97530; 99284; C9803; G0378; J0696; J1650; J1815

== ENCOUNTER 2023-04-01 11:54 | Inpatient (IN) | payer OTHER, SELFPAY ==
[2023-04-01] VITALS (100 sets, daily range): BP systolic 72–118; BP diastolic 45–62; PULSE 83–160; RESP 7–27; TEMP 36.3; O2SAT 95–100; BMI 25.8
--- NOTE | 2023-04-01 | DI.ECHO.S_ITS ---
[facility]---------+ [facility] +---------+ : : [address] [place] [address] : : : : [id number] : : : : Phone: [phone]+ Echocardiogram Report + + :Name: HEYDI HENDRIX Study Date: 04/02/2023 Height: 66 in : :[facility] ReadingLocation: Weight: 159 lb : : Gender: Male BSA: 1.8 m2 : :: 1940 Age: 83 yrs BP: 107/60 mmHg: :Reason For Study: CHF : :Ordering Physician: SHARON, : :AMADO Performed By: Jennie Mejia : :Referring: AMADO HERRERA : + + Interpretation Summary The ejection fraction is estimated to be 15-20%. Diastolic function could not be accurately assessed due to unobtainable data. The right ventricle is mildly dilated. Right ventricular systolic function is mildly reduced. There is moderate mitral regurgitation. There is moderately reduced leaflet mobility. There is mild to moderate tricuspid regurgitation. The right ventricular systolic pressure is estimated to be at least 61 mmHg based on an estimated right atrial pressure of 15 mm Hg. Procedure: A two-dimensional transthoracic echocardiogram with color flow and Doppler was performed. The study quality was technically adequate. There is no prior echocardiogram noted for this patient. The heart rate ranged between 98-115 bpm during the study. Left Ventricle: The left ventricle is normal in size and wall thickness. The ejection fraction is estimated to be 15-20%. Diastolic function could not be accurately assessed due to unobtainable data. Right Ventricle: The right ventricle is mildly dilated. Right ventricular systolic function is mildly reduced. Atria: The left atrial size is normal. Right atrial size is normal. There is no Doppler evidence for an interatrial shunt. Mitral Valve: The mitral valve leaflets appear mildly thickened, but open well. The mitral valve leaflets are mildly calcified. There is mild mitral annular calcification. There is moderate mitral regurgitation. Aortic Valve: The aortic valve is mildly calcified. There is moderately reduced leaflet mobility. Low gradients due to decreased stroke-volume. No aortic regurgitation is present. Tricuspid Valve: The tricuspid valve is normal. There is mild to moderate tricuspid regurgitation. The right ventricular systolic pressure is estimated to be at least 61 mmHg based on an estimated right atrial pressure of 15 mm Hg. Pulmonic Valve: The pulmonic valve is not well visualized. There is trace pulmonic regurgitation. Great Vessels: The aortic root is normal size. The ascending aorta could not be visualized. The IVC is dilated (diameter is greater than 2.1 cm) and it collapses less than 50% with a sniff. This suggests a high right atrial pressure of 15 mm Hg. Pericardium/ Pleura There is no pericardial effusion. There is no pleural effusion. MMode/2D Measurements & Calculations LVIDd: 5.0 cm LVOT diam: 2.0 cm LVIDs: 4.3 cm Ao root diam: 2.9 cm FS: 12.8 % EPSS: 1.5 cm IVSd: 0.97 cm LVPWd: 0.92 cm LV michelle. diameter/BSA (cm/m^2): 2.7 LV sys. diameter/BSA (cm/m^2): 2.4 LA A2 area: 18.8 cm2 RA long axis: 5.0 cm LA A4 area: 20.0 cm2 RA area: 17.2 cm2 LA length (vol): 5.8 cm RA vol: 50.4 ml LA vol: 54.8 ml RA : 27.8 ml/m2 LA vol index: 30.3 ml/m2 IVC diam: 2.4 cm RVD1 (basal): 4.2 cm TAPSE: 1.5 cm Doppler Measurements & Calculations Ao V2 max: 92.2 cm/sec LVOT Max Zaheer: 37.1 cm/sec Ao V2 mean: 65.2 cm/sec LV V1 max P.55 mmHg Ao max P.4 mmHg LV V1 VTI: 6.1 cm Ao mean P.9 mmHg MINNIE(I,D): 1.5 cm2 Ao V2 VTI: 13.6 cm MINNIE(V,D): 1.3 cm2 sev ratio: 0.45 MINNIE indexed to BSA (cm^2/m^2): 0.80 MV E max zaheer: 126.2 cm/sec TR max zaheer: 338.5 cm/sec MV A max zaheer: 0.42 cm/sec TR max P.8 mmHg MV E/A: 301.3 PA pr(Accel): 58.4 mmHg Med Peak E' Zaheer: 5.3 cm/sec E/E' med: 23.7 Lat Peak E' Zaheer: 8.0 cm/sec E/E' lat: 15.8 E/e' average: 19.7 MV dec time: 0.13 sec MVA(VTI): 0.80 cm2 MR ERO: 0.24 cm2 MV V2 mean: 85.0 cm/sec MR PISA: 2.6 cm2 MV mean P.6 mmHg MR flow rate: 96.3 cm3/sec MV V2 VTI: 24.9 cm MR PISA radius: 0.64 cm SV(LVOT): 19.8 ml Reading Physician:01:58 PM
--- NOTE | 2023-04-01 12:50 | DI.RAD.S_ITS ---
PROCEDURE: XR CHEST 1V INDICATIONS: Shortness of breath TECHNIQUE: One view of the chest was acquired. COMPARISON: [facility], CR, XR CHEST 1V, 07/02/2021, 18:57. FINDINGS: Surgical changes and devices: None. Lungs and pleura: Moderate bibasilar airspace opacity. No pleural effusions or pneumothorax. Mediastinum: Mediastinal contours appear normal. Heart size is normal. Bones and chest wall: No suspicious bony lesions. Overlying soft tissues appear unremarkable. IMPRESSION: Bibasilar pneumonia. Dictated by: Kimber Jameson M.D. on 04/01/2023 at 14:18 Approved by: Kimber Jameson M.D. on 04/01/2023 at 14:18
[2023-04-01 13:22] LABS: Add Manual Diff / Slide Review NO; Basophils Absolute Auto 100 /uL (0-100); Basophils Percent Auto 0.8 % (0-2); Eosinophils Absolute Auto 200 /uL (0-450); Eosinophils Percent Auto 1.7 % (2-4); Hematocrit 39.8 % (41-53); Hemoglobin 13.2 g/dL (13.5-17.5); Lymphocytes Absolute Auto 2600 /uL (1100-4500); Lymphocytes Percent Auto 26.6 % (25-40); Mean Corpuscular HGB Conc 33.2 % (30-36); Mean Corpuscular Hemoglobin 28.3 PG (26-34); Mean Corpuscular Volume 85.2 fL (80-100); Monocytes Absolute Auto 900 /uL (0-900); Monocytes Percent Auto 9.1 % (3-14); Neutrophils Absolute Auto 6100 /uL (1500-7000); Neutrophils Percent Auto 61.8 % (50-75); Platelet Count 211 X10^3/uL (150-400); Prothrombin Time 11.1 SECONDS (9.4-12.5); Red Blood Cell Count 4.68 X10^6/uL (4.5-5.9); White Blood Cell Count 9.9 X10^3/uL (4.5-11.0)
[2023-04-01 13:27] LABS: Alanine Aminotransferase 22 IU/L (<50); Albumin 3.7 g/dL (3.5-5.0); Albumin Globulin Ratio 1.4 (1.0-2.8); Alkaline Phosphatase 67 U/L (38-126); Aspartate Aminotransferase 16 IU/L (17-59); BUN Creatinine Ratio 26.8 (6-22); Blood Urea Nitrogen 38 mg/dL (9-20); Calcium 8.5 mg/dL (8.4-10.2); Carbon Dioxide 14 mmol/L (22-32); Chloride 96 mmol/L (98-107); Estimated Glomerular Filt Rate 48 mL/min (>60); Globulin 2.7 g/dL (1.7-4.1); Glucose 288 mg/dL (80-110); HEMOLYSIS < 15 (0-50); Potassium 3.4 mmol/L (3.4-5.1); Sodium 132 mmol/L (137-145); Total Protein 6.4 g/dL (6.3-8.2)
[2023-04-01 13:39] LABS: NT-proBNP (BNP-Adult 18+) 7560 pg/mL (<450); Troponin I 0.062 ng/mL (0.01-0.034)
[2023-04-01] MEDS: SODIUM CHLORIDE 0.9% 500 ML 1000 ML IV ×2 (13:53→16:19)
--- NOTE | 2023-04-01 14:27 | ED.WEAKNESS ---
HPI - Weakness General Chief complaint: Weakness Stated complaint: fatigue/SOB/no bowel movement T-7 Time Seen by Provider: 04/01/23 14:23 Source: patient and family Mode of arrival: Wheelchair Limitations: no limitations History of Present Illness HPI Narrative: 83-year-old male with known large T-cell lymphocytic leukemia, diabetes, history of hypertension, dyslipidemia, asthma, CHF who presents with complaint of decreased appetite, generalized weakness patient has had difficulty getting around the home. Patient himself has no complaints. Daughter states he is very stoic and will never really complain about anything. Normally ambulates in the house and she states she is requiring assistance and a walker to get around. They have had trouble getting him to the commode bedside. No reported fevers or chills. Patient denies headache, he denies any pain. Denies any shortness of breath. No nausea or vomiting. He states he has just not hungry. Patient states no bowel movement. Daughter states it has been at least a week she did disimpact him annually approximately a week to 10 days ago and states that is seemed soft no black or blood in stool was noted. She states he has been urinating. He was wheezy so she did give missing hair. She gave him an extra dose of Lasix which seemed to be helpful. He is not currently receiving any treatment for his lymphocytic leukemia was told that minimal treatments are available and only if symptomatic. His hypertensive meds have been stopped because he has been hypotensive and running 100 to 90s systolic typically. 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 Diabetes I have also decrease his medication secondary to weight loss. Patient has not had any prior strokes or heart attacks. She states he has not confused or altered in any way. He has been sleeping a lot more. Patient has a history of carpal tunnel, prior cataract surgery. No other reported surgeries. No medication allergies reported she states he has a gluten allergy but eats gluten. No tobacco, alcohol or recreational drugs. Related Data Home Medications Medication Instructions Recorded Confirmed Claritin 10 mg PO DAILY 07/03/21 07/03/21 Vitamin D3 5,000 units PO DAILY 07/03/21 07/03/21 atorvastatin 20 mg tablet 20 mg PO DAILY 07/03/21 07/03/21 metformin 500 mg tablet,extended 1,000 mg PO BID 07/03/21 07/03/21 release 24 hr metoprolol succinate 25 mg PO DAILY 07/03/21 07/03/21 semaglutide 1 mg/dose (2 mg/1.5 1 mg SUBCUT QWEEK 07/03/21 07/03/21 mL) subcutaneous pen injector Previous Rx's Medication Instructions Recorded aspirin 81 mg tablet,delayed 162 mg (2 x 81 mg) PO DAILY #60 07/04/21 release (Karlos Low Dose Aspirin) tabs cefdinir 300 mg capsule 300 mg PO BID #14 caps 07/04/21 Allergies Allergy/AdvReac Type Severity Reaction Status Date / Time No Known Drug Allergies Allergy Verified 06/23/21 19:45 Review of Systems Review of Systems ROS Unobtainable: All systems reviewed & are unremarkable except as noted in HPI and below Patient History Medical History Hyperlipidemia Hypertension Diabetes Surgical History No pertinent past surgical history Family History Mother Diabetes mellitus Father Diabetes mellitus Other Congestive heart failure Hyperlipidemia Social History household members: spouse, family and children Smoking Status: Never smoker alcohol intake: current Smoking Status: Never smoker alcohol intake frequency: holidays/special occasions only Substance Use Type: does not use Exam Narrative Exam Narrative: GEN: well nourished, well appearing elderly male, alert and oriented, patient appears to be in mild distress. Patient is hard of hearing but does answer questions for me. HEENT: Atraumatic, pupils are equal round reactive to light, extraocular movements are intact, nares are clear, TMs are clear with no fluid, there is no conjunctival pallor. Throat is clear without any exudates, erythema, tonsillar enlargement or uvular deviation, no facial droop. HEART: Regular rate and rhythm without murmur, clicks, rubs. pulses are equal in upper and lower extremities, pedal edema but no pretibial edema bilaterally. LUNGS:Lungs clear to auscultation, no wheezes, rales, crackles, chest moves symmetrically ABD:bowel sounds normal, soft, non-tender, no guarding, rebound, rigidity, no masses noted, no hepatosplenomegaly :No CVA tenderness MSCL: Non-tender, no muscle atrophy, muscles strength 5/5 upper and lower extremities, full range of motion. NEURO:CN 2-12 intact, sensation normal Initial Vital Signs Initial Vital Signs: Vital Signs Temperature 97.4 F L 04/01/23 12:40 Pulse Rate 90 04/01/23 12:40 Respiratory Rate 16 04/01/23 12:40 Blood Pressure 85/47 L 04/01/23 12:40 Pulse Oximetry 97 04/01/23 12:40 Oxygen Delivery Method Room Air 04/01/23 12:40 Course Orders Ordered: ED Orders 04/01/23 12:50 XR chest 1V Stat EKG-12 Lead Stat Measure peak expiratory flow ONCE RT Consult Eval and Treat NOW 04/01/23 13:04 Complete Blood Count AUTO DIFF Stat Comprehensive Metabolic Panel Stat Lactate (Lactic Acid) Stat NT-proBNP (BNP-Adult 18+) Stat Procalcitonin Stat Prothrombin Time INR Stat Troponin I Stat 04/01/23 13:55 Blood Culture Stat 04/01/23 14:26 CT abdomen pelvis w con Stat 04/01/23 15:05 Trop I [Troponin I] Stat 04/01/23 15:30 Ictotest Urine Stat Urinalysis and Microscopic Stat 04/01/23 17:43 BMP [Basic Metabolic Panel] Stat 04/01/23 17:45 VBG [Venous Blood Gas] Stat Lactated Ringer's (Lactated Ringers) 1,000 mls @ 500 mls/hr IV BOLUS ONE Stop: 04/01/23 20:47 Discontinued Medications Furosemide (Furosemide 40 Mg/4 Ml Vial) 40 mg IV NOW ONE Stop: 04/01/23 17:07 Last Admin: 04/01/23 17:10 Dose: 40 mg Documented By: MELANIE Sodium Chloride (Normal Saline 0.9%) 500 mls @ 1,000 mls/hr IV BOLUS ONE Stop: 04/01/23 14:20 Last Infusion: 04/01/23 14:27 Dose: Infused Documented By: Admin: 04/01/23 13:53 Dose: 1,000 mls/hr Documented By: MELANIE Ceftriaxone Sodium 2,000 mg/ (Sodium Chloride) 100 mls @ 200 mls/hr IV NOW ONE Stop: 04/01/23 14:35 Last Infusion: 04/01/23 15:34 Dose: Infused Documented By: Admin: 04/01/23 14:53 Dose: 200 mls/hr Documented By: MELANIE Sodium Chloride (Normal Saline 0.9%) 500 mls @ 1,000 mls/hr IV BOLUS ONE Stop: 04/01/23 16:47 Last Infusion: 04/01/23 17:12 Dose: Infused Documented By: Admin: 04/01/23 16:19 Dose: 1,000 mls/hr Documented By: MELANIE Insulin Human Regular (Insulin Regular 100 Unit/Ml 3 Ml Vial) 5 unit SUBCUT NOW ONE Stop: 04/01/23 18:49 Vital Signs Vital signs: Vital Signs - 8 hr 04/01/23 12:40 04/01/23 13:09 04/01/23 13:30 Temperature 97.4 F L Pulse Rate 90 92 H 92 H Respiratory Rate 16 Blood Pressure 85/47 L Pulse Oximetry 97 99 98 Oxygen Delivery Method Room Air 04/01/23 13:32 04/01/23 13:32 04/01/23 13:35 Temperature Pulse Rate 92 H Respiratory Rate 11 L Blood Pressure 83/53 L 83/45 L Pulse Oximetry 98 Oxygen Delivery Method 04/01/23 13:35 04/01/23 13:40 04/01/23 13:40 Temperature Pulse Rate 95 H 93 H Respiratory Rate 13 25 H Blood Pressure 72/52 L Pulse Oximetry 95 95 Oxygen Delivery Method 04/01/23 13:46 04/01/23 13:46 04/01/23 13:50 Temperature Pulse Rate 103 H 96 H Respiratory Rate 16 15 Blood Pressure 83/50 L Pulse Oximetry 95 97 Oxygen Delivery Method 04/01/23 13:50 04/01/23 14:00 04/01/23 14:01 Temperature Pulse Rate 97 H Respiratory Rate 16 Blood Pressure 91/50 L 95/51 L Pulse Oximetry 96 Oxygen Delivery Method 04/01/23 14:01 04/01/23 14:05 04/01/23 14:05 Temperature Pulse Rate 92 H 100 H Respiratory Rate 12 12 Blood Pressure 97/55 L Pulse Oximetry 97 95 Oxygen Delivery Method 04/01/23 14:10 04/01/23 14:10 04/01/23 14:15 Temperature Pulse Rate 92 H Respiratory Rate 13 Blood Pressure 92/49 L 91/52 L Pulse Oximetry 95 Oxygen Delivery Method 04/01/23 14:15 04/01/23 14:20 04/01/23 14:20 Temperature Pulse Rate 97 H 100 H Respiratory Rate 18 12 Blood Pressure 91/52 L Pulse Oximetry 96 95 Oxygen Delivery Method 04/01/23 14:25 04/01/23 14:25 04/01/23 14:30 Temperature Pulse Rate 96 H 95 H Respiratory Rate 13 13 Blood Pressure 93/51 L Pulse Oximetry 95 95 Oxygen Delivery Method 04/01/23 14:30 04/01/23 14:35 04/01/23 14:35 Temperature Pulse Rate 94 H Respiratory Rate 17 Blood Pressure 90/53 L 93/55 L Pulse Oximetry 95 Oxygen Delivery Method 04/01/23 14:49 04/01/23 14:49 04/01/23 14:50 Temperature Pulse Rate 100 H Respiratory Rate 17 Blood Pressure 101/51 L 96/54 L Pulse Oximetry 98 Oxygen Delivery Method 04/01/23 14:50 04/01/23 14:55 04/01/23 14:55 Temperature Pulse Rate 104 H 96 H Respiratory Rate 15 12 Blood Pressure 93/50 L Pulse Oximetry 99 100 Oxygen Delivery Method 04/01/23 15:00 04/01/23 15:00 04/01/23 15:06 Temperature Pulse Rate 97 H 91 H Respiratory Rate 25 H 13 Blood Pressure 84/45 L Pulse Oximetry 100 100 Oxygen Delivery Method 04/01/23 15:06 04/01/23 15:10 04/01/23 15:10 Temperature Pulse Rate 101 H Respiratory Rate 16 Blood Pressure 94/51 L 96/58 L Pulse Oximetry 100 Oxygen Delivery Method 04/01/23 15:15 04/01/23 15:15 04/01/23 15:20 Temperature Pulse Rate 98 H Respiratory Rate 18 Blood Pressure 95/53 L 103/57 L Pulse Oximetry 100 Oxygen Delivery Method 04/01/23 15:20 04/01/23 15:25 04/01/23 15:25 Temperature Pulse Rate 99 H 101 H Respiratory Rate 13 15 Blood Pressure 104/51 L Pulse Oximetry 100 100 Oxygen Delivery Method 04/01/23 15:30 04/01/23 15:30 04/01/23 15:35 Temperature Pulse Rate 123 H 99 H Respiratory Rate 22 14 Blood Pressure 114/57 L Pulse Oximetry 100 100 Oxygen Delivery Method 04/01/23 15:35 04/01/23 15:40 04/01/23 15:40 Temperature Pulse Rate 98 H Respiratory Rate 15 Blood Pressure 112/54 L 96/52 L Pulse Oximetry 100 Oxygen Delivery Method 04/01/23 15:45 04/01/23 15:45 04/01/23 15:50 Temperature Pulse Rate 93 H Respiratory Rate 13 Blood Pressure 103/51 L 91/56 L Pulse Oximetry 100 Oxygen Delivery Method 04/01/23 15:50 04/01/23 15:55 04/01/23 15:55 Temperature Pulse Rate 95 H 98 H Respiratory Rate 13 13 Blood Pressure 101/55 L Pulse Oximetry 100 98 Oxygen Delivery Method 04/01/23 16:00 04/01/23 16:00 04/01/23 16:05 Temperature Pulse Rate 99 H Respiratory Rate 12 Blood Pressure 94/50 L 102/54 L Pulse Oximetry 98 Oxygen Delivery Method 04/01/23 16:05 04/01/23 16:10 04/01/23 16:10 Temperature Pulse Rate 99 H 94 H Respiratory Rate 16 14 Blood Pressure 74/45 L Pulse Oximetry 98 98 Oxygen Delivery Method 04/01/23 16:12 04/01/23 16:12 04/01/23 16:15 Temperature Pulse Rate 92 H 91 H Respiratory Rate 11 L 15 Blood Pressure 105/53 L Pulse Oximetry 98 98 Oxygen Delivery Method 04/01/23 16:15 04/01/23 16:21 04/01/23 16:21 Temperature Pulse Rate 95 H Respiratory Rate 16 Blood Pressure 91/53 L 118/56 L Pulse Oximetry 98 Oxygen Delivery Method 04/01/23 16:25 04/01/23 16:25 04/01/23 16:27 Temperature Pulse Rate 99 H Respiratory Rate 13 Blood Pressure 82/49 L 88/50 L Pulse Oximetry 99 Oxygen Delivery Method 04/01/23 16:27 04/01/23 16:30 04/01/23 16:31 Temperature Pulse Rate 106 H 102 H 100 H Respiratory Rate 18 17 19 Blood Pressure Pulse Oximetry 98 99 99 Oxygen Delivery Method 04/01/23 16:31 04/01/23 16:35 04/01/23 16:35 Temperature Pulse Rate 107 H Respiratory Rate 27 H Blood Pressure 117/62 95/51 L Pulse Oximetry 98 Oxygen Delivery Method 04/01/23 16:40 04/01/23 16:40 04/01/23 16:45 Temperature Pulse Rate 104 H Respiratory Rate 16 Blood Pressure 98/56 L 98/54 L Pulse Oximetry 99 Oxygen Delivery Method 04/01/23 16:45 04/01/23 16:50 04/01/23 16:50 Temperature Pulse Rate 95 H 91 H Respiratory Rate 12 10 L Blood Pressure 95/53 L Pulse Oximetry 98 100 Oxygen Delivery Method 04/01/23 16:55 04/01/23 16:55 04/01/23 17:00 Temperature Pulse Rate 100 H 94 H Respiratory Rate 15 16 Blood Pressure 103/58 L Pulse Oximetry 99 98 Oxygen Delivery Method 04/01/23 17:00 04/01/23 17:05 04/01/23 17:05 Temperature Pulse Rate 90 Respiratory Rate 12 Blood Pressure 92/59 L 100/59 L Pulse Oximetry 100 Oxygen Delivery Method 04/01/23 17:10 04/01/23 17:10 04/01/23 17:15 Temperature Pulse Rate 96 H Respiratory Rate 14 Blood Pressure 105/52 L 97/55 L Pulse Oximetry 99 Oxygen Delivery Method 04/01/23 17:15 04/01/23 17:20 04/01/23 17:20 Temperature Pulse Rate 104 H 103 H Respiratory Rate 12 14 Blood Pressure 106/55 L Pulse Oximetry 98 98 Oxygen Delivery Method 04/01/23 17:25 04/01/23 17:25 04/01/23 17:30 Temperature Pulse Rate 94 H Respiratory Rate 12 Blood Pressure 109/57 L 103/55 L Pulse Oximetry 99 Oxygen Delivery Method 04/01/23 17:30 04/01/23 17:35 04/01/23 17:35 Temperature Pulse Rate 96 H 92 H Respiratory Rate 12 13 Blood Pressure 108/57 L Pulse Oximetry 99 99 Oxygen Delivery Method 04/01/23 17:40 04/01/23 17:40 04/01/23 17:45 Temperature Pulse Rate 91 H Respiratory Rate 12 Blood Pressure 93/56 L 96/54 L Pulse Oximetry 99 Oxygen Delivery Method 04/01/23 17:45 04/01/23 17:50 04/01/23 17:50 Temperature Pulse Rate 93 H 91 H Respiratory Rate 14 13 Blood Pressure 90/52 L Pulse Oximetry 98 97 Oxygen Delivery Method [facility] - Weakness Lab Data 04/01/23 13:04 04/01/23 17:43 Labs: Lab Results 04/01/23 04/01/23 04/01/23 Range/Units 13:04 15:05 15:30 WBC 9.9 (4.5-11.0) X10^3/uL RBC 4.68 (4.5-5.9) X10^6/uL Hgb 13.2 L (13.5-17.5) g/dL Hct 39.8 L (41-53) % MCV 85.2 (80-100) fL MCH 28.3 (26-34) PG MCHC 33.2 (30-36) % RDW 15.0 H (11.6-14.8) % Plt Count 211 (150-400) X10^3/uL Neut % (Auto) 61.8 (50-75) % Lymph % (Auto) 26.6 (25-40) % [place] % (Auto) 9.1 (3-14) % Eos % (Auto) 1.7 L (2-4) % Baso % (Auto) 0.8 (0-2) % Neut # (Auto) 6100 (3046-7923) /uL Lymph # (Auto) 2600 (2934-3258) /uL [place] # (Auto) 900 (0-900) /uL Eos # (Auto) 200 (0-450) /uL Baso # (Auto) 100 (0-100) /uL PT 11.1 (9.4-12.5) SECONDS INR 1.0 (0.9-1.3) VBG pH (7.33-7.43) VBG pCO2 (45-50) mmHg VBG pO2 (35-45) mmHg VBG HCO3 (24-28) mmol/L VBG Total CO2 (24-29) mmol/L VBG O2 Saturation (70-75) % VBG Base Excess (0-4) mmol/L FiO2 Sodium 132 L (137-145) mmol/L Potassium 3.4 (3.4-5.1) mmol/L Chloride 96 L (98-107) mmol/L Carbon Dioxide 14 L (22-32) mmol/L BUN 38 H (9-20) mg/dL Creatinine 1.42 H (0.66-1.25) mg/dL Estimated GFR 48 L (>60) mL/min BUN/Creatinine Ratio 26.8 H (6-22) Glucose 288 H (80-110) mg/dL Lactate 1.0 (0.7-2.1) mmol/L Calcium 8.5 (8.4-10.2) mg/dL Total Bilirubin 1.0 (0.2-1.3) mg/dL AST 16 L (17-59) IU/L ALT 22 (<50) IU/L Alkaline Phosphatase 67 (38-126) U/L Troponin I 0.062 H 0.055 H (0.01-0.034) ng/mL NT-Pro-B Natriuret Pep 7560 H (<450) pg/mL Total Protein 6.4 (6.3-8.2) g/dL Albumin 3.7 (3.5-5.0) g/dL Globulin 2.7 (1.7-4.1) g/dL Albumin/Globulin Ratio 1.4 (1.0-2.8) Procalcitonin 0.08 (<0.5) ng/mL Urine Color Yellow Urine Appearance Clear Urine pH 5.5 (4.5-8.0) Ur Specific [place] 1.015 (1.000-1.035) Urine Protein Negative (Negative) Urine Glucose (UA) 3+ H (Negative) g/dL Urine Ketones 2+ H (NEGATIVE) Urine Occult Blood Negative (Negative) Urine Nitrate Negative (Negative) Urine Bilirubin 1+ H (NEGATIVE) Ur Bilirubin Confirm TNP Urine Urobilinogen 0.2 (0.2) E.U./dL Ur Leukocyte Esterase Negative (NEGATIVE) Urine RBC None seen (0-5/HPF) Urine WBC None seen (0-5/HPF) Ur Squamous Epith Cells None seen (0-5/HPF) Urine Bacteria None seen (None) Ur Culture Indicated? Cult not indicated Vol Urine Centrifuged 10ml (spun) 04/01/23 04/01/23 Range/Units 17:43 17:45 WBC (4.5-11.0) X10^3/uL RBC (4.5-5.9) X10^6/uL Hgb (13.5-17.5) g/dL Hct (41-53) % MCV (80-100) fL MCH (26-34) PG MCHC (30-36) % RDW (11.6-14.8) % Plt Count (150-400) X10^3/uL Neut % (Auto) (50-75) % Lymph % (Auto) (25-40) % [place] % (Auto) (3-14) % Eos % (Auto) (2-4) % Baso % (Auto) (0-2) % Neut # (Auto) (4743-4066) /uL Lymph # (Auto) (6714-0105) /uL [place] # (Auto) (0-900) /uL Eos # (Auto) (0-450) /uL Baso # (Auto) (0-100) /uL PT (9.4-12.5) SECONDS INR (0.9-1.3) VBG pH 7.28 L (7.33-7.43) VBG pCO2 34.8 L (45-50) mmHg VBG pO2 33 L (35-45) mmHg VBG HCO3 16 L (24-28) mmol/L VBG Total CO2 17 L (24-29) mmol/L VBG O2 Saturation 56 L (70-75) % VBG Base Excess -11.0 L (0-4) mmol/L FiO2 21 Sodium 133 L (137-145) mmol/L Potassium 3.3 L (3.4-5.1) mmol/L Chloride 99 (98-107) mmol/L Carbon Dioxide 14 L (22-32) mmol/L BUN 36 H (9-20) mg/dL Creatinine 1.35 H (0.66-1.25) mg/dL Estimated GFR 51 L (>60) mL/min BUN/Creatinine Ratio 26.7 H (6-22) Glucose 202 H (80-110) mg/dL Lactate (0.7-2.1) mmol/L Calcium 8.2 L (8.4-10.2) mg/dL Total Bilirubin (0.2-1.3) mg/dL AST (17-59) IU/L ALT (<50) IU/L Alkaline Phosphatase (38-126) U/L Troponin I (0.01-0.034) ng/mL NT-Pro-B Natriuret Pep (<450) pg/mL Total Protein (6.3-8.2) g/dL Albumin (3.5-5.0) g/dL Globulin (1.7-4.1) g/dL Albumin/Globulin Ratio (1.0-2.8) Procalcitonin (<0.5) ng/mL Urine Color Urine Appearance Urine pH (4.5-8.0) Ur Specific [place] (1.000-1.035) Urine Protein (Negative) Urine Glucose (UA) (Negative) g/dL Urine Ketones (NEGATIVE) Urine Occult Blood (Negative) Urine Nitrate (Negative) Urine Bilirubin (NEGATIVE) Ur Bilirubin Confirm Urine Urobilinogen (0.2) E.U./dL Ur Leukocyte Esterase (NEGATIVE) Urine RBC (0-5/HPF) Urine WBC (0-5/HPF) Ur Squamous Epith Cells (0-5/HPF) Urine Bacteria (None) Ur Culture Indicated? Vol Urine Centrifuged Point of Care Testing Glucose POC 254 Imaging Data Chest x-ray: Radiologist Impression: Jamari Cordero??83??M??1940 ? Allergy/Adv: No Known Drug Allergies Close Chest X-Ray (Signed) JamesonBlasjoi - 04/01/23 Brain MRI (Signed) Blas Jamesonjoi - 07/03/21 Telemetry Strips 07/02/[address] (Signed) Domingo Moreno - 07/02/21 Chest X-Ray (Signed) CallSaulo - 07/02/21 Chest/Abdomen/Pelvis CT (Signed) TanaShea - 06/28/21 Launch?Image [address] [address] XRay Report Signed Patient: Jamari Cordero MR#: [id number] : 1940 Acct:[id number] Age/Sex: 83 / M Date of Service: 04/01/23 Loc: ED Accession Number: [id number] Procedure: XR chest 1V Ordering Provider: Enriqueta Pollock D.O. PROCEDURE: XR CHEST 1V INDICATIONS: Shortness of breath TECHNIQUE: One view of the chest was acquired. COMPARISON: [facility], , XR CHEST 1V, 07/02/2021, 18:57. FINDINGS: Surgical changes and devices: None. Lungs and pleura: Moderate bibasilar airspace opacity. No pleural effusions or pneumothorax. Mediastinum: Mediastinal contours appear normal. Heart size is normal. Bones and chest wall: No suspicious bony lesions. Overlying soft tissues appear unremarkable. IMPRESSION: Bibasilar pneumonia. Dictated by: Kimber Jameson M.D. on 04/01/2023 at 14:18 Approved by: Kimber Jameson M.D. on 04/01/2023 at 14:18 CT scan - abdomen/pelvis: Radiologist Impression: [address] [address] [address] Scan Report Signed Patient: Jamari Cordero MR#: [id number] : 1940 Acct:[id number] Age/Sex: 83 / M Date of Service: 04/01/23 Loc: ED Accession Number: [id number] Procedure: CT abdomen pelvis w con Ordering Provider: Enriqueta Pollock D.O. PROCEDURE: CT ABDOMEN PELVIS W CON INDICATIONS: decreased appetite, weak, no BM x week, no vomiting TECHNIQUE: After the administration of intravenous contrast, axial sections acquired from the lung bases to the pubic symphysis. Coronal and sagittal reformats were performed. For radiation dose reduction, the following was used: automated exposure control, adjustment of mA and/or kV according to patient size. COMPARISON: [facility], CR, XR CHEST 1V, 04/01/2023, 13:02. FINDINGS: Image quality: Diagnostic. Lower Chest: Small bilateral pleural effusions with atelectasis of the lung bases. ABDOMEN: Liver: No solid mass. Gallbladder: Status post cholecystectomy. Biliary ducts: No biliary dilation. Pancreas: No ductal dilation. Spleen: Size is within normal limits. Adrenal Glands: No adrenal nodules. Kidneys and Ureters: No hydronephrosis. No solid mass. No complex renal cystic lesion which requires follow up. Stomach and Bowel: Normal colonic caliber, without significant wall thickening. Status post appendectomy. Peritoneum: No abnormal intraperitoneal fluid. No free air. Ventral Wall: No significant ventral hernia. Abdominal Nodes: No retroperitoneal or mesenteric adenopathy by size criteria. Vessels: Aorta and inferior vena cava are normal in size. PELVIS: Pelvic Organs: Prostate is mildly enlarged. Bladder: No bladder wall thickening. Bladder is mildly distended. Pelvic Nodes: No enlarged lymph nodes. Miscellaneous: Small fat containing inguinal hernias. Bones: No aggressive osseous abnormality. Multilevel degenerative changes are seen in the spine. IMPRESSION: 1. No acute abnormality identified in the abdomen or pelvis. 2. Small bilateral pleural effusions with atelectasis at the lung bases. Approved by: Henrry Javier M.D. on 04/01/2023 at 15:15 ECG Data Attestation: I personally reviewed and interpreted this ECG as follows: Prior ECG tracings: available for review Interpretation: Atrial fibrillation rate of 98 QRS of 148 QTC of 490. Left bundle-branch and left axis deviation. Patient has prior shows sinus tachycardia MDM Narrative Medical decision making narrative: 83-year-old male presents with concern from family for decreased appetite, generalized weakness, decreased stool output. Patient has no complaints himself. CBC shows white count of 9.9 hemoglobin is 13 actually improved from priors, platelets of 211 INR 1, creatinine is up at 1.42, BUN 38, patient daughter notes that he has not been eating or drinking much likely has some dehydration component. Last available creatinine was 0.89 in 2021. Patient's sodium is 132 potassium 3 4 with a chloride 94 and CO2 of 14, lactate 1, troponins 0.062, BNP is 7560. Urine shows glucose, ketones and bilirubin, no other signs of infection Chest x-ray read as pneumonia CT abdomen pelvis obtained and small bilateral pleural effusions lung bases, no acute abnormality noted. Patient was initially hypotensive in the 80-90 range his normal as 100-90 systolic according to daughter. Did drop down to the 70s. He is asymptomatic with no complaints but was given bolus that appeared to improve. Patient's family states he is normally 90-100 systolic majority of time he is here as well. Troponin was repeated is trending down words. Patient had gentle diuresis seemed to improve with 500 bolus has had occasional lows but seems consistently 90-100 just according to his daughter his normal baseline. Chest x-ray shows possible no pneumonia but this could be pulmonary edema, he has not had increasing hypoxia. He is asymptomatic.. CT abdomen pelvis is negative. Does have a little bit of acute kidney injury. Spoke with family they have been managing his medications somewhat and using other family members so unclear if his exact medications currently.. He is DNR/DNI. Reviewed with Dr. Rehman, concern for potential DKA. Discussed suspect heart failure with CAROL, asked for repeat BMP and re-contacted with these results. Thinks may need admission for ICU possibly insulin drip associated consult with tele ICU but okay with the admission. Spoke with Dr. Bansal Tele-intensivisit: Recommends LR bolus, insulin subQ and repeat labs in 4 hours if anion gap is closing can continue with subQ insulin if patient's anion gap is not closing with start insulin drip. We did discuss patient does appear to have CHF with CAROL, will hydrate slowly while continuing to evaluate. Re-contacted Dr. Rehman plan for ICU for potential insulin drip if anion gap is not closing, reviewed recommendations from tell corporate communications manager. Accepts for admission plan for ICU. Discharge Plan Departure Patient Disposition: Admitted As Inpatient Clinical Impression: Atrial fibrillation, Weakness, Pleural effusion, Hyperglycemia Admit Date/Time: 04/01/23 18:57 Admit Provider: Benjamin Rehman
[2023-04-01] MEDS: cefTRIAXone 2,000 MG in SODIUM CHLORIDE 0.9% 100 ML 200 MG IV (14:53)
[2023-04-01 15:34] LABS: Procalcitonin 0.08 ng/mL (<0.5)
[2023-04-01 15:44] LABS: Appearance Urine UA CLEAR; Bilirubin Urine UA 1+ (NEGATIVE); Color Urine UA YELLOW; Glucose Urine UA 3+ g/dL (Negative); Ketones Urine UA 2+ (NEGATIVE); Leukocyte Esterase Urine UA NEGATIVE (NEGATIVE); Nitrite Urine UA NEGATIVE (Negative); Occult Blood Urine UA NEGATIVE (Negative); Protein Urine UA NEGATIVE (Negative); Specific Gravity Urine UA 1.015 (1.000-1.035); Urobilinogen Urine UA 0.2 E.U./dL (0.2); pH Urine UA 5.5 (4.5-8.0)
[2023-04-01 15:47] LABS: Troponin I 0.055 ng/mL (0.01-0.034)
[2023-04-01 15:52] LABS: Bacteria Urine None Seen; Culture Indicated Urine Cult Not Indicated; RBC Urine None Seen (0-5/HPF); Squamous Epithelial Cell Urine None Seen (0-5/HPF); Urine Volume 10mL (spun); WBC Urine None Seen (0-5/HPF)
[2023-04-01] MEDS: FUROSEMIDE 40 MG/4 ML VIAL IV (17:10)
--- NOTE | 2023-04-01 17:17 | PM.CALLCOV.1 ---
Call Coverage Note Note Narrative of Care Provided: 83 M past medical history of diabetes, hypertension, hyperlipidemia medicine asked to evaluate for admission for CHF and CAROL. Patient is borderline hypotensive, elevated proBNP, creatinine 1.42 with bicarb of 14. He has an anion gap of 20 with glucose of 288. Initially advised to give lasix for presumed CHF to see if patient would tolerate over the phone. Differential includes sepsis, possible cardiogenic shock, possible DKA, amongst others. Recommend repeat BMP after fluids, if he still has elevated Gap and acidosis after fluids we can admit for presumed DKA. If more consistent with cardiogenic shock would recommend transfer.
[2023-04-01 17:59] LABS: Fractionated Inspired Oxygen 21; HCO3 VBG 16 mmol/L (24-28); Oxygen Saturation VBG 56 % (70-75); PCO2 VBG 34.8 mmHg (45-50); PO2 VBG 33 mmHg (35-45); Total CO2 VBG 17 mmol/L (24-29); pH VBG 7.28 (7.33-7.43)
[2023-04-01 18:06] LABS: BUN Creatinine Ratio 26.7 (6-22); Blood Urea Nitrogen 36 mg/dL (9-20); Calcium 8.2 mg/dL (8.4-10.2); Carbon Dioxide 14 mmol/L (22-32); Chloride 99 mmol/L (98-107); Estimated Glomerular Filt Rate 51 mL/min (>60); Glucose 202 mg/dL (80-110); HEMOLYSIS < 15 (0-50); Potassium 3.3 mmol/L (3.4-5.1); Sodium 133 mmol/L (137-145)
[2023-04-01] MEDS: INSULIN REGULAR 100 UNIT/ML 3 ML VIAL SUBCUT (19:10)
[2023-04-01] MEDS: LACTATED RINGERS 1,000 ML 500 ML IV (19:10)
[2023-04-01] MEDS: FAMOTIDINE 20 MG/2 ML VIAL IV (21:44)
[2023-04-01 22:21] LABS: BUN Creatinine Ratio 26.4 (6-22); Blood Urea Nitrogen 34 mg/dL (9-20); Calcium 8.5 mg/dL (8.4-10.2); Carbon Dioxide 17 mmol/L (22-32); Chloride 98 mmol/L (98-107); Estimated Glomerular Filt Rate 54 mL/min (>60); Glucose 151 mg/dL (80-110); HEMOLYSIS 24 (0-50); Potassium 3.4 mmol/L (3.4-5.1); Sodium 135 mmol/L (137-145)
[2023-04-01 22:22] LABS: Cholesterol 128 mg/dL (140-199); HDL Cholesterol 48 mg/dL (40-60); LDL Cholesterol Calculated 58 mg/dL (<100); Triglycerides 112 mg/dL (35-150)
[2023-04-01 22:33] LABS: Troponin I 0.061 ng/mL (0.01-0.034)
--- NOTE | 2023-04-01 22:50 | P.HP_ITS ---
History of Present Illness History of Present Illness Chief complaint: fatigue/SOB/no bowel movement T-7 Narrative: 83 years old male with history of diabetes mellitus type 2, hypertension, hyperlipidemia, CHF, asthma, large T-cell lymphocytic leukemia presented to the ER with generalized weakness, decreased appetite, sleepy and no any bowel movements in the last week. Denies fever, chest pain, palpitations, cough, shortness of breath, nausea, vomiting, abdominal pain, diarrhea or dysuria. Daughter reports the patient was feeling wheezy and she gave him extra dose of Lasix which seems to help him. Diagnosed with T-cell leukemia last year but not on any active treatments. His antihypertensive medications were stopped after he was diagnosed with leukemia due to blood pressure running low. His only medications was continued was Coreg for A-fib. Laboratory shows WBC 9.9, sodium 133, potassium 3.3, creatinine 1.35 from 1, lactic acid negative, procalcitonin negative, troponin 0.05, BNP 7560, pH 7.28 bicarb 16, anion gap 20, blood glucose 288, UA positive for glucose 3+, ketone 2+, bilirubin 1+, EKG shows atrial fibrillation of 98, LBBB, abdominal CT scan shows small bilateral pleural effusion in the lung bases. Chest x-ray was read for bibasilar pneumonia. In the ER he was borderline hypotensive and initially was given LR 500 cc bolus. Telemetry ICU was consulted and recommended giving Lasix 40 mg IV due to CHF exacerbation. [facility] Medical History (Updated 04/01/23 @ 19:30 by Julio César Kaur MD) Hyperlipidemia Hypertension Diabetes Surgical History No pertinent past surgical history Family History Mother Diabetes mellitus Father Diabetes mellitus Other Congestive heart failure Hyperlipidemia Social History household members: spouse and children Smoking Status: Never smoker alcohol intake: current Meds Home Medications and Allergies Home Medications Medication Instructions Recorded Confirmed Type Vitamin D3 1,000 units PO DAILY 07/03/21 04/01/23 History atorvastatin 20 mg tablet 10 mg PO DAILY 07/03/21 04/01/23 History aspirin 81 mg tablet 81 mg PO DAILY 04/01/23 04/01/23 History carvedilol 3.125 mg tablet 3.125 mg PO DAILY 04/01/23 04/01/23 History empagliflozin 25 mg tablet 25 mg PO DAILY 04/01/23 04/01/23 History ferrous sulfate 325 mg (65 mg 650 mg PO DAILY 04/01/23 04/01/23 History iron) tablet fluticasone propionate 50 2 spray intranasal DAILY 04/01/23 04/01/23 History mcg/actuation nasal spray,suspension folic acid 1 mg tablet 1 mg PO DAILY 04/01/23 04/01/23 History metformin 1,000 mg tablet 1,000 mg PO BID 04/01/23 04/01/23 History Allergies Allergy/AdvReac Type Severity Reaction Status Date / Time No Known Drug Allergies Allergy Verified 06/23/21 19:45 Review of Systems Review of Systems ROS: Yes All systems reviewed with the patient and are negative except as otherwise documented Constitutional Constitutional: Reports as per HPI and Reports system reviewed and no additional complaints, except as documented Eyes Eyes: Reports as per HPI and Reports system reviewed and no additional complaints, except as documented ENT Ears, Nose, Mouth, and Throat: Yes as per HPI and Yes system reviewed and no additional complaints, except as documented Cardiovascular Cardiovascular: Reports system reviewed and no additional complaints, except as documented Respiratory Respiratory: Reports system reviewed and no additional complaints, except as documented Gastrointestinal Gastrointestinal: Reports system reviewed and no additional complaints, except as documented Genitourinary Genitourinary: Reports system reviewed and no additional complaints, except as documented Musculoskeletal Musculoskeletal: Reports system reviewed and no additional complaints, except as documented, Reports abnormal gait and Reports numbness Neurologic Neurologic: Reports system reviewed and no additional complaints, except as documented, Reports abnormal gait, Reports confusion and Reports numbness Psychiatric Psychiatric: Reports system reviewed and no additional complaints, except as documented and Reports confusion Exam Vital Signs (past 8 hours): - 04/01/23 14:55 04/01/23 14:55 04/01/23 15:00 Temperature Pulse Rate 96 H 97 H Respiratory Rate 12 25 H Blood Pressure 93/50 L Pulse Oximetry 100 100 Oxygen Delivery Method 04/01/23 15:00 04/01/23 15:06 04/01/23 15:06 Temperature Pulse Rate 91 H Respiratory Rate 13 Blood Pressure 84/45 L 94/51 L Pulse Oximetry 100 Oxygen Delivery Method 04/01/23 15:10 04/01/23 15:10 04/01/23 15:15 Temperature Pulse Rate 101 H Respiratory Rate 16 Blood Pressure 96/58 L 95/53 L Pulse Oximetry 100 Oxygen Delivery Method 04/01/23 15:15 04/01/23 15:20 04/01/23 15:20 Temperature Pulse Rate 98 H 99 H Respiratory Rate 18 13 Blood Pressure 103/57 L Pulse Oximetry 100 100 Oxygen Delivery Method 04/01/23 15:25 04/01/23 15:25 04/01/23 15:30 Temperature Pulse Rate 101 H 123 H Respiratory Rate 15 22 Blood Pressure 104/51 L Pulse Oximetry 100 100 Oxygen Delivery Method 04/01/23 15:30 04/01/23 15:35 04/01/23 15:35 Temperature Pulse Rate 99 H Respiratory Rate 14 Blood Pressure 114/57 L 112/54 L Pulse Oximetry 100 Oxygen Delivery Method 04/01/23 15:40 04/01/23 15:40 04/01/23 15:45 Temperature Pulse Rate 98 H Respiratory Rate 15 Blood Pressure 96/52 L 103/51 L Pulse Oximetry 100 Oxygen Delivery Method 04/01/23 15:45 04/01/23 15:50 04/01/23 15:50 Temperature Pulse Rate 93 H 95 H Respiratory Rate 13 13 Blood Pressure 91/56 L Pulse Oximetry 100 100 Oxygen Delivery Method 04/01/23 15:55 04/01/23 15:55 04/01/23 16:00 Temperature Pulse Rate 98 H Respiratory Rate 13 Blood Pressure 101/55 L 94/50 L Pulse Oximetry 98 Oxygen Delivery Method 04/01/23 16:00 04/01/23 16:05 04/01/23 16:05 Temperature Pulse Rate 99 H 99 H Respiratory Rate 12 16 Blood Pressure 102/54 L Pulse Oximetry 98 98 Oxygen Delivery Method 04/01/23 16:10 04/01/23 16:10 04/01/23 16:12 Temperature Pulse Rate 94 H Respiratory Rate 14 Blood Pressure 74/45 L 105/53 L Pulse Oximetry 98 Oxygen Delivery Method 04/01/23 16:12 04/01/23 16:15 04/01/23 16:15 Temperature Pulse Rate 92 H 91 H Respiratory Rate 11 L 15 Blood Pressure 91/53 L Pulse Oximetry 98 98 Oxygen Delivery Method 04/01/23 16:21 04/01/23 16:21 04/01/23 16:25 Temperature Pulse Rate 95 H Respiratory Rate 16 Blood Pressure 118/56 L 82/49 L Pulse Oximetry 98 Oxygen Delivery Method 04/01/23 16:25 04/01/23 16:27 04/01/23 16:27 Temperature Pulse Rate 99 H 106 H Respiratory Rate 13 18 Blood Pressure 88/50 L Pulse Oximetry 99 98 Oxygen Delivery Method 04/01/23 16:30 04/01/23 16:31 04/01/23 16:31 Temperature Pulse Rate 102 H 100 H Respiratory Rate 17 19 Blood Pressure 117/62 Pulse Oximetry 99 99 Oxygen Delivery Method 04/01/23 16:35 04/01/23 16:35 04/01/23 16:40 Temperature Pulse Rate 107 H Respiratory Rate 27 H Blood Pressure 95/51 L 98/56 L Pulse Oximetry 98 Oxygen Delivery Method 04/01/23 16:40 04/01/23 16:45 04/01/23 16:45 Temperature Pulse Rate 104 H 95 H Respiratory Rate 16 12 Blood Pressure 98/54 L Pulse Oximetry 99 98 Oxygen Delivery Method 04/01/23 16:50 04/01/23 16:50 04/01/23 16:55 Temperature Pulse Rate 91 H Respiratory Rate 10 L Blood Pressure 95/53 L 103/58 L Pulse Oximetry 100 Oxygen Delivery Method 04/01/23 16:55 04/01/23 17:00 04/01/23 17:00 Temperature Pulse Rate 100 H 94 H Respiratory Rate 15 16 Blood Pressure 92/59 L Pulse Oximetry 99 98 Oxygen Delivery Method 04/01/23 17:05 04/01/23 17:05 04/01/23 17:10 Temperature Pulse Rate 90 Respiratory Rate 12 Blood Pressure 100/59 L 105/52 L Pulse Oximetry 100 Oxygen Delivery Method 04/01/23 17:10 04/01/23 17:15 04/01/23 17:15 Temperature Pulse Rate 96 H 104 H Respiratory Rate 14 12 Blood Pressure 97/55 L Pulse Oximetry 99 98 Oxygen Delivery Method 04/01/23 17:20 04/01/23 17:20 04/01/23 17:25 Temperature Pulse Rate 103 H Respiratory Rate 14 Blood Pressure 106/55 L 109/57 L Pulse Oximetry 98 Oxygen Delivery Method 04/01/23 17:25 04/01/23 17:30 04/01/23 17:30 Temperature Pulse Rate 94 H 96 H Respiratory Rate 12 12 Blood Pressure 103/55 L Pulse Oximetry 99 99 Oxygen Delivery Method 04/01/23 17:35 04/01/23 17:35 04/01/23 17:40 Temperature Pulse Rate 92 H Respiratory Rate 13 Blood Pressure 108/57 L 93/56 L Pulse Oximetry 99 Oxygen Delivery Method 04/01/23 17:40 04/01/23 17:45 04/01/23 17:45 Temperature Pulse Rate 91 H 93 H Respiratory Rate 12 14 Blood Pressure 96/54 L Pulse Oximetry 99 98 Oxygen Delivery Method 04/01/23 17:50 04/01/23 17:50 04/01/23 17:55 Temperature Pulse Rate 91 H Respiratory Rate 13 Blood Pressure 90/52 L 92/52 L Pulse Oximetry 97 Oxygen Delivery Method 04/01/23 17:55 04/01/23 18:00 04/01/23 18:00 Temperature Pulse Rate 88 86 Respiratory Rate 13 20 Blood Pressure 83/54 L Pulse Oximetry 97 97 Oxygen Delivery Method Room Air Room Air 04/01/23 18:05 04/01/23 18:05 04/01/23 18:10 Temperature Pulse Rate 89 105 H Respiratory Rate 12 18 Blood Pressure 100/53 L Pulse Oximetry 97 98 Oxygen Delivery Method 04/01/23 18:10 04/01/23 18:15 04/01/23 18:15 Temperature Pulse Rate 103 H Respiratory Rate 15 Blood Pressure 112/55 L 109/54 L Pulse Oximetry 98 Oxygen Delivery Method 04/01/23 18:20 04/01/23 18:20 04/01/23 18:25 Temperature Pulse Rate 91 H Respiratory Rate 15 Blood Pressure 111/54 L 102/58 L Pulse Oximetry 98 Oxygen Delivery Method 04/01/23 18:25 04/01/23 18:30 04/01/23 18:30 Temperature Pulse Rate 98 H 96 H Respiratory Rate 15 18 Blood Pressure 104/58 L Pulse Oximetry 98 98 Oxygen Delivery Method 04/01/23 18:35 04/01/23 18:35 04/01/23 18:40 Temperature Pulse Rate 95 H Respiratory Rate 15 Blood Pressure 102/62 100/55 L Pulse Oximetry 98 Oxygen Delivery Method 04/01/23 18:40 04/01/23 18:45 04/01/23 18:45 Temperature Pulse Rate 102 H 98 H Respiratory Rate 23 13 Blood Pressure 104/56 L Pulse Oximetry 98 98 Oxygen Delivery Method 04/01/23 18:50 04/01/23 18:50 04/01/23 18:55 Temperature Pulse Rate 94 H Respiratory Rate 12 Blood Pressure 110/55 L 103/59 L Pulse Oximetry 98 Oxygen Delivery Method 04/01/23 18:55 04/01/23 19:00 04/01/23 19:00 Temperature Pulse Rate 87 83 Respiratory Rate 11 L 11 L Blood Pressure 99/51 L Pulse Oximetry 97 97 Oxygen Delivery Method 04/01/23 19:05 04/01/23 19:05 04/01/23 19:10 Temperature Pulse Rate 97 H Respiratory Rate 11 L Blood Pressure 93/51 L 97/54 L Pulse Oximetry 98 Oxygen Delivery Method 04/01/23 19:10 04/01/23 19:16 04/01/23 19:16 Temperature Pulse Rate 96 H 98 H Respiratory Rate 11 L 12 Blood Pressure 105/57 L Pulse Oximetry 97 98 Oxygen Delivery Method 04/01/23 19:20 04/01/23 19:20 04/01/23 19:25 Temperature Pulse Rate 103 H Respiratory Rate 14 Blood Pressure 90/57 L 90/54 L Pulse Oximetry 97 Oxygen Delivery Method 04/01/23 19:25 04/01/23 19:30 04/01/23 19:30 Temperature Pulse Rate 95 H 108 H Respiratory Rate 11 L 12 Blood Pressure 87/56 L Pulse Oximetry 98 97 Oxygen Delivery Method Room Air 04/01/23 19:35 04/01/23 19:35 04/01/23 19:40 Temperature Pulse Rate 115 H Respiratory Rate 13 Blood Pressure 92/56 L 94/51 L Pulse Oximetry 97 Oxygen Delivery Method 04/01/23 19:40 04/01/23 19:48 04/01/23 19:48 Temperature Pulse Rate 117 H 120 H Respiratory Rate 16 12 Blood Pressure 91/56 L Pulse Oximetry 97 97 Oxygen Delivery Method 04/01/23 19:50 04/01/23 19:50 04/01/23 19:55 Temperature Pulse Rate 110 H Respiratory Rate 16 Blood Pressure 98/53 L 86/52 L Pulse Oximetry 97 Oxygen Delivery Method Room Air 04/01/23 19:55 04/01/23 20:00 04/01/23 20:00 Temperature Pulse Rate 160 H 117 H Respiratory Rate 13 25 H Blood Pressure 89/62 L Pulse Oximetry 98 97 Oxygen Delivery Method 04/01/23 20:06 04/01/23 20:06 04/01/23 20:10 Temperature Pulse Rate 149 H Respiratory Rate 20 Blood Pressure 109/57 L 97/54 L Pulse Oximetry 98 Oxygen Delivery Method 04/01/23 20:10 04/01/23 20:15 04/01/23 20:15 Temperature Pulse Rate 120 H 131 H Respiratory Rate 12 12 Blood Pressure 96/54 L Pulse Oximetry 98 98 Oxygen Delivery Method Room Air 04/01/23 20:20 04/01/23 20:20 04/01/23 20:25 Temperature Pulse Rate 126 H Respiratory Rate 23 Blood Pressure 108/54 L 108/54 L Pulse Oximetry 97 Oxygen Delivery Method 04/01/23 20:25 04/01/23 20:30 04/01/23 20:30 Temperature Pulse Rate 124 H 120 H Respiratory Rate 16 13 Blood Pressure 92/50 L Pulse Oximetry 97 97 Oxygen Delivery Method 04/01/23 20:40 04/01/23 21:12 04/01/23 21:18 Temperature 97.3 F L Pulse Rate 99 H 100 H 90 Respiratory Rate 16 13 10 L Blood Pressure 91/53 L Pulse Oximetry 97 100 99 Oxygen Delivery Method 04/01/23 21:18 04/01/23 21:30 04/01/23 21:40 Temperature Pulse Rate 86 Respiratory Rate 12 Blood Pressure 98/57 L Pulse Oximetry 98 Oxygen Delivery Method Room Air 04/01/23 22:00 04/01/23 22:00 Temperature Pulse Rate 93 H Respiratory Rate 11 L Blood Pressure 100/55 L Pulse Oximetry 99 Oxygen Delivery Method Oxygen Delivery Method Room Air Const General: cooperative, comfortable and well developed Orientation: alert and oriented x3 HENMT Head: normal to inspection, normocephalic and atraumatic Face and sinus: normal facial exam Mouth: oral mucosae normal and moist mucous membranes Throat: posterior oropharynx normal Eyes General: appearance normal, both eyes and all related structures Pupils: PERRL EOM: EOM intact bilaterally Neck Neck: normal visual inspection and full ROM Chest Chest: normal inspection of the chest Resp Effort & Inspection: normal respiratory effort and able to speak in complete sentences Auscultation: clear to auscultation bilaterally Cardio Palpation: normal PMI Rate: regular rate Rhythm: regular rhythm Heart Sounds: S1 normal and S2 normal GI Inspection: normal to inspection Palpation: soft and no hepatosplenomegaly Auscultation: normal bowel sounds Skin General: no rashes or lesions noted Lesions: no lesions Rashes: no rashes Trauma: no lacerations or abrasions Neuro General: patient alert, patient awake, patient oriented x3 and no focal motor deficits Cranial Nerves: CN's II-XI intact bilaterally Cognition: normal cognition Speech: speech normal Gait: normal gait Motor: muscle tone normal throughout Sensory Exam: no sensory deficits noted Extrem General: full ROM and no calf tenderness Psych Appearance: grossly normal Mental Status: mental status grossly normal Speech and Movement: speech and movement normal Objective Labs 04/01/23 13:04 04/01/23 21:35 Labs: Laboratory Results - last 24 hr 04/01/23 04/01/23 04/01/23 13:04 15:05 15:30 WBC 9.9 RBC 4.68 Hgb 13.2 L Hct 39.8 L MCV 85.2 MCH 28.3 MCHC 33.2 RDW 15.0 H Plt Count 211 Neut % (Auto) 61.8 Lymph % (Auto) 26.6 [place] % (Auto) 9.1 Eos % (Auto) 1.7 L Baso % (Auto) 0.8 Neut # (Auto) 6100 Lymph # (Auto) 2600 [place] # (Auto) 900 Eos # (Auto) 200 Baso # (Auto) 100 PT 11.1 INR 1.0 VBG pH VBG pCO2 VBG pO2 VBG HCO3 VBG Total CO2 VBG O2 Saturation VBG Base Excess FiO2 Sodium 132 L Potassium 3.4 Chloride 96 L Carbon Dioxide 14 L BUN 38 H Creatinine 1.42 H Estimated GFR 48 L BUN/Creatinine Ratio 26.8 H Glucose 288 H Lactate 1.0 Calcium 8.5 Magnesium Total Bilirubin 1.0 AST 16 L ALT 22 Alkaline Phosphatase 67 Troponin I 0.062 H 0.055 H NT-Pro-B Natriuret Pep 7560 H Total Protein 6.4 Albumin 3.7 Globulin 2.7 Albumin/Globulin Ratio 1.4 Triglycerides Cholesterol LDL Cholesterol, Calc HDL Cholesterol Procalcitonin 0.08 Urine Color Yellow Urine Appearance Clear Urine pH 5.5 Ur Specific Clifford 1.015 Urine Protein Negative Urine Glucose (UA) 3+ H Urine Ketones 2+ H Urine Occult Blood Negative Urine Nitrate Negative Urine Bilirubin 1+ H Ur Bilirubin Confirm TNP Urine Urobilinogen 0.2 Ur Leukocyte Esterase Negative Urine RBC None seen Urine WBC None seen Ur Squamous Epith Cells None seen Urine Bacteria None seen Ur Culture Indicated? Cult not indicated Vol Urine Centrifuged 10ml (spun) 04/01/23 04/01/23 04/01/23 17:43 17:45 21:35 WBC RBC Hgb Hct MCV MCH MCHC RDW Plt Count Neut % (Auto) Lymph % (Auto) [place] % (Auto) Eos % (Auto) Baso % (Auto) Neut # (Auto) Lymph # (Auto) [place] # (Auto) Eos # (Auto) Baso # (Auto) PT INR VBG pH 7.28 L VBG pCO2 34.8 L VBG pO2 33 L VBG HCO3 16 L VBG Total CO2 17 L VBG O2 Saturation 56 L VBG Base Excess -11.0 L FiO2 21 Sodium 133 L 135 L Potassium 3.3 L 3.4 Chloride 99 98 Carbon Dioxide 14 L 17 L BUN 36 H 34 H Creatinine 1.35 H 1.29 H Estimated GFR 51 L 54 L BUN/Creatinine Ratio 26.7 H 26.4 H Glucose 202 H 151 H Lactate Calcium 8.2 L 8.5 Magnesium 2.0 Total Bilirubin AST ALT Alkaline Phosphatase Troponin I 0.061 H NT-Pro-B Natriuret Pep Total Protein Albumin Globulin Albumin/Globulin Ratio Triglycerides 112 Cholesterol 128 L LDL Cholesterol, Calc 58 HDL Cholesterol 48 Procalcitonin Urine Color Urine Appearance Urine pH Ur Specific [place] Urine Protein Urine Glucose (UA) Urine Ketones Urine Occult Blood Urine Nitrate Urine Bilirubin Ur Bilirubin Confirm Urine Urobilinogen Ur Leukocyte Esterase Urine RBC Urine WBC Ur Squamous Epith Cells Urine Bacteria Ur Culture Indicated? Vol Urine Centrifuged Assessment & Plan Assessment & Plan narrative: DKA: Unusual presentation. pH 7.28, blood sugar 288, anion gap 20, UA positive for glucose and ketone. -Q1hr blood sugar checks, TPN-10 q4hrs. -Start IV insulin drip with goal glucose level 140-180 mg/dL per protocol if not responding to Insulin sc trial -if potassium 3.3 meq/L or less hold insulin drip and potassium repletion with goal 4.0-5.0 meq/L. -Treat cautiously with volume resuscitation due to ongoing CHF exac. -Would need to switch to long acting insulin s.c. after anion gap is resolved. -consult dietitian/diabetic education nurse Hypokalemia -replenish potassium. -Recheck electrolytes in a.m. Acute kidney injury. Presented with creatinine 1.35, baseline between 0.8-1. Most likely pre-renal. -continue with IV fluid hydration. -monitor UOP. -daily BMP -Avoid any nephrotoxic agents, including NSAIDs -Dose all medications according pt's current eGFR Acute on chronic diastolic heart failure: -Monitor I and O; daily standing weight; -diuresis with Lasix as BP can tolerate. -check BNP and repeat in 48 hours; low sodium diet -Monitor effectiveness of diuresis. Monitor renal function. -keep potassium> 4 and magnesium> 2 -Telemetry monitoring -serial troponins, Echo -Resume BB and ASA -Supplemental O2 as needed, goal SpO2> 90% Hyperlipidemia. Restart atorvastatin. Time Spent With Patient Time with patient: 50 to 69 minutes with 50% spent counseling/coordinating care Quality VTE Deep Vein Thrombosis/Pulmonary Embolism Present on Admission: No MIPS - Admit I confirm the patient?s Advance Care Plan is present, Code status is documented, Surrogate decision maker is in patient?s record [If Yes, STOP here]: Yes MIPS - Meds 'Current medications' to include all prescriptions, [id number] products, herbals, cannabis/cannabidiol products, and vitamin/mineral/dietary (nutritional) supplements. I have utilized all available resources to obtain, update, or review the patient?s current medications. [If Yes, STOP here]: Yes
[2023-04-02] VITALS (26 sets, daily range): BP systolic 82–109; BP diastolic 49–69; PULSE 85–105; RESP 8–17; TEMP 35.9–36.5; O2SAT 94–98
[2023-04-02 00:59] LABS: BUN Creatinine Ratio 31.3 (6-22); Blood Urea Nitrogen 31 mg/dL (9-20); Calcium 8.1 mg/dL (8.4-10.2); Carbon Dioxide 19 mmol/L (22-32); Chloride 99 mmol/L (98-107); Estimated Glomerular Filt Rate > 60 mL/min (>60); Glucose 118 mg/dL (80-110); HEMOLYSIS < 15 (0-50); Potassium 2.8 mmol/L (3.4-5.1); Sodium 134 mmol/L (137-145)
[2023-04-02 01:26] LABS: PCO2 VBG 36.7 mmHg (45-50); PO2 VBG 38 mmHg (35-45); pH VBG 7.38 (7.33-7.43)
[2023-04-02 01:27] LABS: Fractionated Inspired Oxygen 21; HCO3 VBG 22 mmol/L (24-28); Oxygen Saturation VBG 71 % (70-75); Total CO2 VBG 23 mmol/L (24-29)
[2023-04-02] MEDS: POTASSIUM CHLORIDE IN WATER 10 MEQ/100 ML PIGGYBACK 100 MEQ IV ×6 (01:39→12:00)
[2023-04-02] MEDS: INSULIN DRIP PREMIX 100 UNIT/100 ML PLAST..BAG 105.27 UNIT IV (01:40)
[2023-04-02] MEDS: DEXTROSE 5%-0.45% NS 1,000 ML 109 ML IV (01:41)
--- NOTE | 2023-04-02 04:02 | PM.CN.EICU ---
History of Present Illness Consult details IF CAMERA ACTIVATED, patient seen via real-time interactive audiovisual communication: Camera activated Chief complaint: fatigue/SOB/no bowel movement T-7 Consent obtained for tele-painting trades worker care: Yes Patient Location: ICU Provider location (State): [place] Other participants/roles: Dr. Álvarez and bedside RN Narrative: Patient is a 83 year old male with history of DM, HTN, and CHF who presents with generalized weakness. No reported fever/chills, shortness of breath or diarrhea. On presentation, labs notable for K 3.3, Cr 1.35, Co2 16, AG 20, and glucose 288. Tele painting trades worker consulted for mild DKA management which I recommended IVF resuscitation, insulin, and repeat BMP in 4 hours. If AG fails to improve then patient will need to be admitted to ICU. Dr. Álvarez was hesitant about giving fluids which she wants to start out with 500 mL of LR bolus. While in the ER patient also received lasix for wheezing. Admitted to ICU and started on insulin gtt per protocol. Repeat labs showedK 2.7, AG 16 and Co2 19. Insulin gtt stopped and is currently receiving potassium replacement. [facility] Medical History (Updated 04/01/23 @ 19:30 by Julio César Kaur MD) Hyperlipidemia Hypertension Diabetes Surgical History No pertinent past surgical history Family History Mother Diabetes mellitus Father Diabetes mellitus Other Congestive heart failure Hyperlipidemia Social History household members: spouse and children Smoking Status: Never smoker alcohol intake: current Current Medications Current Medications Medications: Home Medications Vitamin D3 1,000 units PO DAILY 07/03/21 [History Confirmed 04/01/23] atorvastatin 20 mg tablet 10 mg PO DAILY 07/03/21 [History Confirmed 04/01/23] aspirin 81 mg tablet 81 mg PO DAILY 04/01/23 [History Confirmed 04/01/23] carvedilol 3.125 mg tablet 3.125 mg PO DAILY 04/01/23 [History Confirmed 04/01/23] empagliflozin 25 mg tablet 25 mg PO DAILY 04/01/23 [History Confirmed 04/01/23] ferrous sulfate 325 mg (65 mg iron) tablet 650 mg PO DAILY 04/01/23 [History Confirmed 04/01/23] fluticasone propionate 50 mcg/actuation nasal spray,suspension 2 spray intranasal DAILY 04/01/23 [History Confirmed 04/01/23] folic acid 1 mg tablet 1 mg PO DAILY 04/01/23 [History Confirmed 04/01/23] metformin 1,000 mg tablet 1,000 mg PO BID 04/01/23 [History Confirmed 04/01/23] Visit Medications (administered) Generic Name Dose Route Start Last Admin Trade Name Barbi PRN Reason Stop Dose Admin Famotidine 20 mg 04/01/23 21:00 04/01/23 21:44 Famotidine 20 Mg/2 Ml Vial IV 20 mg BID JEB Administration INSULIN DRIP PREMIX 100 unit in 100 mls @ 7.26 mls/hr 04/02/23 00:30 04/02/23 01:40 Myxredlin Drip Premix IV 1.45 unit/kg/hr TITRATE JEB 105.27 mls/hr Administration Protocol 0.1 UNIT/KG/HR Dextrose/Sodium Chloride 1,000 mls @ 109 mls/hr 04/02/23 01:15 04/02/23 01:41 Dextrose 5%-0.45% Ns IV 109 mls/hr CONT JEB Administration POTASSIUM CHLORIDE IN WATER 10 meq in 100 mls @ 100 mls/hr 04/02/23 01:30 04/02/23 04:01 Potassium Cl 10 Meq/100 Ml Amanda IV 04/02/23 05:29 100 mls/hr Q1H JEB Administration Insulin Human Lispro 0 unit 04/01/23 21:00 04/01/23 22:42 Insulin Lispro 100 Unit/Ml 3ml Vial SUBCUT Not Given Q4HR JEB Protocol Exam Vital Signs (past 8 hours): - 04/01/23 20:06 04/01/23 20:06 04/01/23 20:10 Temperature Pulse Rate 149 H Respiratory Rate 20 Blood Pressure 109/57 L 97/54 L Pulse Oximetry 98 Oxygen Delivery Method Oxygen Flow Rate 04/01/23 20:10 04/01/23 20:15 04/01/23 20:15 Temperature Pulse Rate 120 H 131 H Respiratory Rate 12 12 Blood Pressure 96/54 L Pulse Oximetry 98 98 Oxygen Delivery Method Room Air Oxygen Flow Rate 04/01/23 20:20 04/01/23 20:20 04/01/23 20:25 Temperature Pulse Rate 126 H Respiratory Rate 23 Blood Pressure 108/54 L 108/54 L Pulse Oximetry 97 Oxygen Delivery Method Oxygen Flow Rate 04/01/23 20:25 04/01/23 20:30 04/01/23 20:30 Temperature Pulse Rate 124 H 120 H Respiratory Rate 16 13 Blood Pressure 92/50 L Pulse Oximetry 97 97 Oxygen Delivery Method Oxygen Flow Rate 04/01/23 20:40 04/01/23 21:12 04/01/23 21:18 Temperature 97.3 F L Pulse Rate 99 H 100 H 90 Respiratory Rate 16 13 10 L Blood Pressure 91/53 L Pulse Oximetry 97 100 99 Oxygen Delivery Method Oxygen Flow Rate 04/01/23 21:18 04/01/23 21:30 04/01/23 21:40 Temperature Pulse Rate 86 Respiratory Rate 12 Blood Pressure 98/57 L Pulse Oximetry 98 Oxygen Delivery Method Room Air Oxygen Flow Rate 04/01/23 22:00 04/01/23 22:00 04/01/23 22:30 Temperature Pulse Rate 93 H 101 H Respiratory Rate 11 L 13 Blood Pressure 100/55 L Pulse Oximetry 99 97 Oxygen Delivery Method Oxygen Flow Rate 04/01/23 23:00 04/01/23 23:00 04/01/23 23:01 Temperature Pulse Rate 90 92 H Respiratory Rate 8 L 13 Blood Pressure 95/51 L 80/51 L Pulse Oximetry 97 96 Oxygen Delivery Method Oxygen Flow Rate 0 04/01/23 23:01 04/01/23 23:06 04/01/23 23:06 Temperature Pulse Rate 94 H 92 H Respiratory Rate 13 7 L Blood Pressure 95/51 L Pulse Oximetry 96 96 Oxygen Delivery Method Oxygen Flow Rate 04/01/23 23:30 04/02/23 00:00 04/02/23 00:00 Temperature 96.6 F L Pulse Rate 100 H Respiratory Rate 16 Blood Pressure 97/55 L Pulse Oximetry 96 Oxygen Delivery Method Oxygen Flow Rate 04/02/23 00:00 04/02/23 00:30 04/02/23 01:00 Temperature Pulse Rate 90 92 H 88 Respiratory Rate 11 L 13 13 Blood Pressure Pulse Oximetry 96 95 95 Oxygen Delivery Method Oxygen Flow Rate 04/02/23 01:00 04/02/23 01:00 02/13/24 01:30 Temperature Pulse Rate 90 Respiratory Rate 12 Blood Pressure 89/50 L Pulse Oximetry 97 Oxygen Delivery Method Room Air Oxygen Flow Rate 04/02/23 02:00 04/02/23 02:00 04/02/23 02:03 Temperature Pulse Rate 86 Respiratory Rate 10 L Blood Pressure 82/49 L 83/54 L Pulse Oximetry 95 Oxygen Delivery Method Oxygen Flow Rate 04/02/23 02:03 04/02/23 02:30 04/02/23 03:00 Temperature Pulse Rate 98 H 85 Respiratory Rate 12 15 Blood Pressure 89/52 L Pulse Oximetry 96 96 Oxygen Delivery Method Oxygen Flow Rate 04/02/23 03:00 Temperature Pulse Rate 93 H Respiratory Rate 12 Blood Pressure Pulse Oximetry 97 Oxygen Delivery Method Oxygen Flow Rate Oxygen Delivery Method Room Air Oxygen Flow Rate 0 Objective Labs 04/01/23 13:04 04/02/23 00:30 Labs: Laboratory Results - last 24 hr 04/01/23 04/01/23 04/01/23 13:04 15:05 15:30 WBC 9.9 RBC 4.68 Hgb 13.2 L Hct 39.8 L MCV 85.2 MCH 28.3 MCHC 33.2 RDW 15.0 H Plt Count 211 Neut % (Auto) 61.8 Lymph % (Auto) 26.6 [place] % (Auto) 9.1 Eos % (Auto) 1.7 L Baso % (Auto) 0.8 Neut # (Auto) 6100 Lymph # (Auto) 2600 [place] # (Auto) 900 Eos # (Auto) 200 Baso # (Auto) 100 PT 11.1 INR 1.0 VBG pH VBG pCO2 VBG pO2 VBG HCO3 VBG Total CO2 VBG O2 Saturation VBG Base Excess FiO2 Sodium 132 L Potassium 3.4 Chloride 96 L Carbon Dioxide 14 L BUN 38 H Creatinine 1.42 H Estimated GFR 48 L BUN/Creatinine Ratio 26.8 H Glucose 288 H Lactate 1.0 Calcium 8.5 Magnesium Total Bilirubin 1.0 AST 16 L ALT 22 Alkaline Phosphatase 67 Troponin I 0.062 H 0.055 H NT-Pro-B Natriuret Pep 7560 H Total Protein 6.4 Albumin 3.7 Globulin 2.7 Albumin/Globulin Ratio 1.4 Triglycerides Cholesterol LDL Cholesterol, Calc HDL Cholesterol Procalcitonin 0.08 Urine Color Yellow Urine Appearance Clear Urine pH 5.5 Ur Specific [place] 1.015 Urine Protein Negative Urine Glucose (UA) 3+ H Urine Ketones 2+ H Urine Occult Blood Negative Urine Nitrate Negative Urine Bilirubin 1+ H Ur Bilirubin Confirm TNP Urine Urobilinogen 0.2 Ur Leukocyte Esterase Negative Urine RBC None seen Urine WBC None seen Ur Squamous Epith Cells None seen Urine Bacteria None seen Ur Culture Indicated? Cult not indicated Vol Urine Centrifuged 10ml (spun) 04/01/23 04/01/23 04/01/23 17:43 17:45 21:35 WBC RBC Hgb Hct MCV MCH MCHC RDW Plt Count Neut % (Auto) Lymph % (Auto) [place] % (Auto) Eos % (Auto) Baso % (Auto) Neut # (Auto) Lymph # (Auto) [place] # (Auto) Eos # (Auto) Baso # (Auto) PT INR VBG pH 7.28 L VBG pCO2 34.8 L VBG pO2 33 L VBG HCO3 16 L VBG Total CO2 17 L VBG O2 Saturation 56 L VBG Base Excess -11.0 L FiO2 21 Sodium 133 L 135 L Potassium 3.3 L 3.4 Chloride 99 98 Carbon Dioxide 14 L 17 L BUN 36 H 34 H Creatinine 1.35 H 1.29 H Estimated GFR 51 L 54 L BUN/Creatinine Ratio 26.7 H 26.4 H Glucose 202 H 151 H Lactate Calcium 8.2 L 8.5 Magnesium 2.0 Total Bilirubin AST ALT Alkaline Phosphatase Troponin I 0.061 H NT-Pro-B Natriuret Pep Total Protein Albumin Globulin Albumin/Globulin Ratio Triglycerides 112 Cholesterol 128 L LDL Cholesterol, Calc 58 HDL Cholesterol 48 Procalcitonin Urine Color Urine Appearance Urine pH Ur Specific [place] Urine Protein Urine Glucose (UA) Urine Ketones Urine Occult Blood Urine Nitrate Urine Bilirubin Ur Bilirubin Confirm Urine Urobilinogen Ur Leukocyte Esterase Urine RBC Urine WBC Ur Squamous Epith Cells Urine Bacteria Ur Culture Indicated? Vol Urine Centrifuged 04/02/23 04/02/23 00:30 01:00 WBC RBC Hgb Hct MCV MCH MCHC RDW Plt Count Neut % (Auto) Lymph % (Auto) [place] % (Auto) Eos % (Auto) Baso % (Auto) Neut # (Auto) Lymph # (Auto) [place] # (Auto) Eos # (Auto) Baso # (Auto) PT INR VBG pH 7.38 VBG pCO2 36.7 L VBG pO2 38 VBG HCO3 22 L VBG Total CO2 23 L VBG O2 Saturation 71 VBG Base Excess -4.0 L FiO2 21 Sodium 134 L Potassium 2.8 L Chloride 99 Carbon Dioxide 19 L BUN 31 H Creatinine 0.99 Estimated GFR > 60 BUN/Creatinine Ratio 31.3 H Glucose 118 H Lactate Calcium 8.1 L Magnesium Total Bilirubin AST ALT Alkaline Phosphatase Troponin I NT-Pro-B Natriuret Pep Total Protein Albumin Globulin Albumin/Globulin Ratio Triglycerides Cholesterol LDL Cholesterol, Calc HDL Cholesterol Procalcitonin Urine Color Urine Appearance Urine pH Ur Specific [place] Urine Protein Urine Glucose (UA) Urine Ketones Urine Occult Blood Urine Nitrate Urine Bilirubin Ur Bilirubin Confirm Urine Urobilinogen Ur Leukocyte Esterase Urine RBC Urine WBC Ur Squamous Epith Cells Urine Bacteria Ur Culture Indicated? Vol Urine Centrifuged Assessment & Plan Assessment & Plan narrative: NEURO: -- Need PT/OT consultation RESP: -- On room air -- Encourage IS -- Seek early mobility -- Goal SPO2 > 88% CVS: # Hypotension -- Secondary to dehydration from mild DKA -- Cont gentle hydration -- Avoid lasix -- DC metoprolol -- MAP goal > 65 : # Metabolic acidosis -- DKA management as below -- Co2 and AG improving slowly ENDO: # Euglycemia DKA -- Initiated on DKA protocol and received lasix rather than fluid resuscitation -- Will recommend avoiding lasix given hypokalemia -- Insulin and D5W held due to hypokalemia -- Start LR 100 cc/hr -- Cont trending BMP every 4 hours -- If AG worsen then will restart insulin gtt per protocol once K is above 4 -- High lytes goal D/w bedside JAYSON Bates.
[2023-04-02] MEDS: LACTATED RINGERS 1,000 ML 100 ML IV (04:26)
[2023-04-02 05:19] LABS: BUN Creatinine Ratio 29.6 (6-22); Blood Urea Nitrogen 29 mg/dL (9-20); Calcium 7.9 mg/dL (8.4-10.2); Carbon Dioxide 21 mmol/L (22-32); Chloride 99 mmol/L (98-107); Estimated Glomerular Filt Rate > 60 mL/min (>60); Glucose 114 mg/dL (80-110); HEMOLYSIS < 15 (0-50); Sodium 134 mmol/L (137-145)
--- NOTE | 2023-04-02 06:13 | PC.NURSE ---
Addendum entered by Imelda Dempsey R.N. 04/02/23 06:38: Tele-Enrollment Consultant, Dr Bansal called at 0400, informed him about patient status and current orders. Insulin gtt stopped, IVF changed to LR @ 100ml/hr, Q1h CBGs, Q4h BMPs, and K+ riders continue. Patient has been dozing intermittently, denies pain or other discomfort. Has not voided since GA, denies urge, brief dry. Original Note: Midwife Note-Resumed care of patient at 2114. A/O to person, place, year, and situation. [place], no hearing aids with him, daughter in room. A-fib CVR/RVR, BBB, rate 90s-115, BP low but stable, see vital trends, afebrile, RR 8-16, shallow with dim breath sounds,RA SpO2>94%, no cough. LR bolus complete. CBGs Q1h, 179 trending down to 119, see MAR and flow sheet. IV Lasix given in ED, diuresing clear pale urine via urinal. Tele-Enrollment Consultant called via designated number at [phone], message left. Updated Dr Kaur at [phone], DKA protocol initiated, insulin gtt and D51/2NS started per wt. based protocol. BMPs ordered Q4h, K+ 2.8 at the GA draw, 40meq K+ riders started per protocol.
--- NOTE | 2023-04-02 08:25 | PM.PN.1 ---
Subjective Subjective Interval history: NAD, not speaking. Daughter ([employer]PER[employer]) at bedside. Exam Vital Signs (past 8 hours): - 04/02/23 00:30 04/02/23 01:00 04/02/23 01:00 Temperature Pulse Rate 92 H 88 Respiratory Rate 13 13 Blood Pressure 89/50 L Pulse Oximetry 95 95 Oxygen Delivery Method Oxygen Flow Rate 04/02/23 01:00 04/02/23 01:30 04/02/23 02:00 Temperature Pulse Rate 90 86 Respiratory Rate 12 10 L Blood Pressure Pulse Oximetry 97 95 Oxygen Delivery Method Room Air Oxygen Flow Rate 04/02/23 02:00 04/02/23 02:03 04/02/23 02:03 Temperature Pulse Rate 98 H Respiratory Rate 12 Blood Pressure 82/49 L 83/54 L Pulse Oximetry 96 Oxygen Delivery Method Oxygen Flow Rate 04/02/23 02:30 04/02/23 03:00 04/02/23 03:00 Temperature Pulse Rate 85 93 H Respiratory Rate 15 12 Blood Pressure 89/52 L Pulse Oximetry 96 97 Oxygen Delivery Method Oxygen Flow Rate 04/02/23 03:30 04/02/23 04:00 04/02/23 04:00 Temperature 97.7 F Pulse Rate 97 H Respiratory Rate 12 Blood Pressure 87/54 L Pulse Oximetry 95 Oxygen Delivery Method Oxygen Flow Rate 04/02/23 04:00 04/02/23 04:30 04/02/23 05:00 Temperature Pulse Rate 93 H 95 H 95 H Respiratory Rate 12 8 L 13 Blood Pressure 97/54 L Pulse Oximetry 95 95 95 Oxygen Delivery Method Oxygen Flow Rate 0 04/02/23 05:00 04/02/23 05:00 04/02/23 05:00 Temperature Pulse Rate 96 H Respiratory Rate 13 Blood Pressure 97/54 L Pulse Oximetry 97 Oxygen Delivery Method Room Air Oxygen Flow Rate 04/02/23 05:30 04/02/23 06:00 04/02/23 06:00 Temperature Pulse Rate 97 H 100 H Respiratory Rate 14 15 Blood Pressure 101/55 L Pulse Oximetry Oxygen Delivery Method Oxygen Flow Rate 04/02/23 06:30 04/02/23 07:00 04/02/23 07:00 Temperature Pulse Rate 96 H 99 H Respiratory Rate 11 L 13 Blood Pressure 104/62 Pulse Oximetry Oxygen Delivery Method Oxygen Flow Rate 04/02/23 07:30 04/02/23 08:00 04/02/23 08:00 Temperature Pulse Rate 99 H 99 H Respiratory Rate 12 9 L Blood Pressure 109/63 Pulse Oximetry Oxygen Delivery Method Oxygen Flow Rate 04/02/23 08:00 Temperature 97.6 F Pulse Rate Respiratory Rate Blood Pressure Pulse Oximetry 94 Oxygen Delivery Method Oxygen Flow Rate Oxygen Delivery Method Room Air Oxygen Flow Rate 0 Narrative Exam Narrative: NAD Neck without adenopathy. Lungs are clear, normal effort. CV, regular and without murmur. Abdomen Soft and NT. Ext without edema. Objective Imaging CT scan - abdomen: Radiologist's impression: IMPRESSION: 1. No acute abnormality identified in the abdomen or pelvis. 2. Small bilateral pleural effusions with atelectasis at the lung bases. Chest x-ray: Radiologist's impression: Bibasilar pneumonia. Labs 04/01/23 13:04 04/02/23 08:20 Labs: Laboratory Results - last 24 hr 04/01/23 04/01/23 04/01/23 13:04 15:05 15:30 WBC 9.9 RBC 4.68 Hgb 13.2 L Hct 39.8 L MCV 85.2 MCH 28.3 MCHC 33.2 RDW 15.0 H Plt Count 211 Neut % (Auto) 61.8 Lymph % (Auto) 26.6 [place] % (Auto) 9.1 Eos % (Auto) 1.7 L Baso % (Auto) 0.8 Neut # (Auto) 6100 Lymph # (Auto) 2600 [place] # (Auto) 900 Eos # (Auto) 200 Baso # (Auto) 100 PT 11.1 INR 1.0 VBG pH VBG pCO2 VBG pO2 VBG HCO3 VBG Total CO2 VBG O2 Saturation VBG Base Excess FiO2 Sodium 132 L Potassium 3.4 Chloride 96 L Carbon Dioxide 14 L BUN 38 H Creatinine 1.42 H Estimated GFR 48 L BUN/Creatinine Ratio 26.8 H Glucose 288 H Lactate 1.0 Calcium 8.5 Magnesium Total Bilirubin 1.0 AST 16 L ALT 22 Alkaline Phosphatase 67 Troponin I 0.062 H 0.055 H NT-Pro-B Natriuret Pep 7560 H Total Protein 6.4 Albumin 3.7 Globulin 2.7 Albumin/Globulin Ratio 1.4 Triglycerides Cholesterol LDL Cholesterol, Calc HDL Cholesterol Procalcitonin 0.08 Urine Color Yellow Urine Appearance Clear Urine pH 5.5 Ur Specific [place] 1.015 Urine Protein Negative Urine Glucose (UA) 3+ H Urine Ketones 2+ H Urine Occult Blood Negative Urine Nitrate Negative Urine Bilirubin 1+ H Ur Bilirubin Confirm TNP Urine Urobilinogen 0.2 Ur Leukocyte Esterase Negative Urine RBC None seen Urine WBC None seen Ur Squamous Epith Cells None seen Urine Bacteria None seen Ur Culture Indicated? Cult not indicated Vol Urine Centrifuged 10ml (spun) 04/01/23 04/01/23 04/01/23 17:43 17:45 21:35 WBC RBC Hgb Hct MCV MCH MCHC RDW Plt Count Neut % (Auto) Lymph % (Auto) [place] % (Auto) Eos % (Auto) Baso % (Auto) Neut # (Auto) Lymph # (Auto) [place] # (Auto) Eos # (Auto) Baso # (Auto) PT INR VBG pH 7.28 L VBG pCO2 34.8 L VBG pO2 33 L VBG HCO3 16 L VBG Total CO2 17 L VBG O2 Saturation 56 L VBG Base Excess -11.0 L FiO2 21 Sodium 133 L 135 L Potassium 3.3 L 3.4 Chloride 99 98 Carbon Dioxide 14 L 17 L BUN 36 H 34 H Creatinine 1.35 H 1.29 H Estimated GFR 51 L 54 L BUN/Creatinine Ratio 26.7 H 26.4 H Glucose 202 H 151 H Lactate Calcium 8.2 L 8.5 Magnesium 2.0 Total Bilirubin AST ALT Alkaline Phosphatase Troponin I 0.061 H NT-Pro-B Natriuret Pep Total Protein Albumin Globulin Albumin/Globulin Ratio Triglycerides 112 Cholesterol 128 L LDL Cholesterol, Calc 58 HDL Cholesterol 48 Procalcitonin Urine Color Urine Appearance Urine pH Ur Specific [place] Urine Protein Urine Glucose (UA) Urine Ketones Urine Occult Blood Urine Nitrate Urine Bilirubin Ur Bilirubin Confirm Urine Urobilinogen Ur Leukocyte Esterase Urine RBC Urine WBC Ur Squamous Epith Cells Urine Bacteria Ur Culture Indicated? Vol Urine Centrifuged 04/02/23 04/02/23 04/02/23 00:30 01:00 04:23 WBC RBC Hgb Hct MCV MCH MCHC RDW Plt Count Neut % (Auto) Lymph % (Auto) [place] % (Auto) Eos % (Auto) Baso % (Auto) Neut # (Auto) Lymph # (Auto) [place] # (Auto) Eos # (Auto) Baso # (Auto) PT INR VBG pH 7.38 VBG pCO2 36.7 L VBG pO2 38 VBG HCO3 22 L VBG Total CO2 23 L VBG O2 Saturation 71 VBG Base Excess -4.0 L FiO2 21 Sodium 134 L 134 L Potassium 2.8 L 3.0 L Chloride 99 99 Carbon Dioxide 19 L 21 L BUN 31 H 29 H Creatinine 0.99 0.98 Estimated GFR > 60 > 60 BUN/Creatinine Ratio 31.3 H 29.6 H Glucose 118 H 114 H Lactate Calcium 8.1 L 7.9 L Magnesium Total Bilirubin AST ALT Alkaline Phosphatase Troponin I NT-Pro-B Natriuret Pep Total Protein Albumin Globulin Albumin/Globulin Ratio Triglycerides Cholesterol LDL Cholesterol, Calc HDL Cholesterol Procalcitonin Urine Color Urine Appearance Urine pH Ur Specific [place] Urine Protein Urine Glucose (UA) Urine Ketones Urine Occult Blood Urine Nitrate Urine Bilirubin Ur Bilirubin Confirm Urine Urobilinogen Ur Leukocyte Esterase Urine RBC Urine WBC Ur Squamous Epith Cells Urine Bacteria Ur Culture Indicated? Vol Urine Centrifuged [facility] Medical History (Updated 04/01/23 @ 19:30 by Julio César Kaur MD) Hyperlipidemia Hypertension Diabetes Surgical History No pertinent past surgical history Family History Mother Diabetes mellitus Father Diabetes mellitus Other Congestive heart failure Hyperlipidemia Social History household members: spouse and children Smoking Status: Never smoker alcohol intake: current Assessment & Plan Assessment & Plan narrative: DKA: Present on admission and imprvoing. pH 7.28, blood sugar 288, anion gap 20, UA positive for glucose and ketone. -Insulin drip off at 0400, start glargine 15 QAM now. -Treat cautiously with volume resuscitation due to ongoing CHF exacerbation. -Would need to switch to long acting insulin s.c. after anion gap is resolved. -consult dietitian/diabetic education nurse Hypokalemia, present on admission and active. -replenish potassium as needed. -Recheck electrolytes in a.m. Acute kidney injury. Present on admission and active. Presented with creatinine 1.35, baseline between 0.8-1. Most likely pre-renal. -continue with IV fluid hydration. -Avoid any nephrotoxic agents, including NSAIDs -Dose all medications according pt's current eGFR Acute on chronic diastolic heart failure, present on admission and active. -Monitor I and O; daily standing weight; -diuresis with Lasix as BP as able. -serial troponins, Echo -Resume BB and ASA -Supplemental O2 as needed, goal SpO2> 90% . Wean O2 as able. Hyperlipidemia. Present on admission and active. -Restarted atorvastatin. Time Spent With Patient Time with patient: 30 to 49 minutes with 50% spent counseling/coordinating care Quality VTE Deep Vein Thrombosis/Pulmonary Embolism Present on Admission: No
[2023-04-02 08:36] LABS: MRSA (Nasal) PCR Not Detected (Not Detect)
[2023-04-02 09:04] LABS: BUN Creatinine Ratio 30.7 (6-22); Blood Urea Nitrogen 27 mg/dL (9-20); Calcium 8.1 mg/dL (8.4-10.2); Carbon Dioxide 19 mmol/L (22-32); Chloride 100 mmol/L (98-107); Estimated Glomerular Filt Rate > 60 mL/min (>60); Glucose 126 mg/dL (80-110); HEMOLYSIS 17 (0-50); Potassium 3.5 mmol/L (3.4-5.1); Sodium 134 mmol/L (137-145)
[2023-04-02 09:06] LABS: Magnesium 1.8 mg/dL (1.6-2.3)
[2023-04-02] MEDS: FAMOTIDINE 20 MG/2 ML VIAL IV ×2 (10:01→22:15)
[2023-04-02] MEDS: ASPIRIN EC 81 MG TABLET 162 MG PO (10:12)
[2023-04-02] MEDS: INSULIN GLARGINE 100 UNIT/ML 3ML PEN 15 UNIT SUBCUT (10:12)
[2023-04-02] MEDS: ATORVASTATIN 20 MG TABLET PO (10:12)
[2023-04-02] MEDS: ENOXAPARIN 30 MG/0.3 ML SYRINGE SUBCUT (10:13)
[2023-04-02] MEDS: INSULIN LISPRO 100 UNIT/ML 3ML VIAL SUBCUT ×3 (12:04→22:15)
--- NOTE | 2023-04-02 12:20 | PT.IIE ---
Current Diagnoses Type 2 diabetes mellitus with ketoacidosis without coma (04/01/23) Surgical History (Last Reviewed 04/01/23 @ 14:29 by Enriqueta Pollock DO) No pertinent past surgical history Medical History (Last Updated 04/01/23 @ 19:25 by Julio César Kaur MD) Diabetes Hyperlipidemia Hypertension Physical Therapy Inpatient Evaluation/Re-Eval M1 PT/OT-IP Prior Functional Status Start: 04/02/23 14:17 Freq: NEEDED Status: Active Protocol: Document 04/02/23 12:20 AB (Rec: 04/02/23 14:45 AB [id number]) Medical Review Prior Functional Status Medical History Reviewed Yes Communication able to make needs known but is very NEZ PERCE Mobility and Gait pt's daughter in room and provided most of pt's PLOF and home set up: stated that pt needs assistance with all mobilities. stated that pt mostly is in bed and only gets up when he has to use the toilet or eats. usually uses a 4WW for transfers stated that pt had PT up until january and was ambulating but stopped ambulating much when PT stopped. stated that pt usually gets dizzy and does not want to get out of the bed. Social History Household Members children Living Arrangements House Number of Floors (Floors) One Floor Number of Stairs To Enter/Railing? 2 steps without rails: daughter stated that one person on one side and the other daughter on the other side to assist pt into the house. Home Environment Standard Height Toilet,Walk in Shower Home Equipment Four Wheel Walker,Shower Seat with Backrest,Hand Held Shower ,Grab Bars Near Toilet Additional Social History Comment pt lives with his 2 daughter who assist him pt has a hospital bed with B rails M2 PT-IP Current Condition Start: 04/02/23 14:17 Freq: NEEDED Status: Active Protocol: Document 04/02/23 12:20 AB (Rec: 04/02/23 14:45 AB [id number]) Physical Therapy Current Condition Current Condition Evaluation Date 04/02/23 Treatment Diagnosis A-fib; DKA; difficulty in walking Onset Date 04/01/23 M3 PT-IP Subjective Start: 04/02/23 14:17 Freq: NEEDED Status: Active Protocol: Document 04/02/23 12:20 AB (Rec: 04/02/23 14:45 AB [id number]) Subjective Physical Therapy Visit Type Type Initial Evaluation Visit Start Time 12:20 Visit Stop Time 13:00 Number of REGIONAL WILDLIFE AGENT Visits 0 Physical Therapy Visit Comments Patient Comments agreeable to do PT Therapy Pain Assessment Pain Present Pain Present Unable to Respond M4 PT-IP Mobility and Gait Start: 04/02/23 14:17 Freq: NEEDED Status: Active Protocol: Document 04/02/23 12:20 AB (Rec: 04/02/23 14:45 AB [id number]) PT-Bed Mobility Assessment Supine to Sit Supine to Sit Maximum Assistance,1 Person Assistance,2 Person Assistance ,Head of Bed Elevated,Bedrails PT-Transfer Assessment Sit to and From Stand Sit to and from Stand Maximum Assistance,1 Person Assistance,2 Person Assistance ,Use of Upper Extremities Equipment Transfer Assistive Device Gait Belt,Front Wheeled Walker Orthotic/Prosthetic Devices or Brace: No Transfers Transfer Destination Chair Transfer Technique Stand Step Pivot Transfer Ability Level of Assist Maximum Assistance,1 Person Assistance,Use of Upper Extremities Comments Mobility Comments pt supine in bed. daughter in room with pt and provided most of pt's PLOF and home set up. daughter stated that pt' s BP tends to drop at home and that is the reason why pt does not get out of the bed much. BP in supine: 141/63. daughter in room expressed concern about taking BP on L upper arm due to ongoing IV with IV line placement by wrist area. assured pt's daughter that it is ok to take BP since IV line is farther down and nurses has been taking BP on the same site. daughter stated: I hope you know what you are doing. informed pt's daughter that if she wants, PT can ask the nurse to talk to her or even the doctor if she does not trust PT. Nurse came in to assist and informed regarding BP and IV line concern about pt's daughter. Nurse reassured pt and informed daughter that IV line is farther down for BP cuff to squeeze. pt completed supine to sit max a x 1-2 and max cues. pt able to sit on EOB CGA. BP checked: 123/84. Rechecked BP after ~ 2 minutes of sittin/64. pt without c/o dizziness. completed sit to stand max A x 1-2 and max cues and step transfer to chair using fWW max A x 1 and cues. pt needing do put brief on. completed sit to stand max A and cues and nurse assist pt with hygiene care and brief management. pt refused ambulation. positioned pt on the chair. call light and table placed within reach. Left pt with nurse and daughter in room. PT-Balance Assessment Sitting Balance and Reactions Static Sitting Balance Ability Good Dynamic Sitting Balance Ability Fair Standing Balance and Reactions Static Standing Balance Ability Fair Dynamic Standing Balance Ability Poor Device Used FWW M5 PT-IP Objective Assessments Start: 04/02/23 14:17 Freq: NEEDED Status: Active Protocol: Document 04/02/23 12:20 AB (Rec: 04/02/23 14:45 AB [id number]) Orientation Orientation/Cognition Level of Alertness Alert Orientation Name Language Function Ability Hard of Hearing Safety Awareness Decreased Safety Awareness Memory Description Short Term Impaired Gross Range of Motion Lower Extremity ROM Assessment Within Functional Limits Strength Lower Extremity Strength Hip 3+/5 Knee 3+/5 Sensation Assessment Sensation Gross Sensation WNL Muscle Tone Muscle Tone WNL Yes M6 PT-IP Treatment Start: 04/02/23 14:17 Freq: NEEDED Status: Active Protocol: Document 04/02/23 12:20 AB (Rec: 04/02/23 14:45 AB [id number]) Physical Therapy Treatment Education Education Provided Safety M7 PT-IP Assessment and Plan Start: 04/02/23 14:17 Freq: NEEDED Status: Active Protocol: Document 04/02/23 12:20 AB (Rec: 04/02/23 14:45 AB [id number]) PT Summary Assessment and Plan Potential Rehabilitation Potential Fair Status of Condition at Evaluation Evolving Summary Impairments Pain,ROM,Strength,Balance, Coordination,Sensation,Tone, Cognition,Bed Mobility, Transfers,Gait,Activity Tolerance Assessment Summary pt is an 83 y/o M who presented to the ED due to weakness. pt admitted for a- fib an DKA. pt requiring max A x 1-2 with bed mobility, transfers using fWW. pt refused to do ambulation today . pt will require 24/ assist and will benefit from HHPT. pt may go home if family can provide necessary assistance to pt. will continue to assess . Goals Bed Mobility Goal Standby Assistance Transfer Goal Standby Assistance,Front Wheeled Walker Gait Goal Standby Assistance,Front Wheel Walker Gait Distance 50 Other Goals up/down 2 steps PAINTER BOTTOM CGA Days to Meet Goals 10 Frequency of Treatment Frequency Of Treatment Once a Day Treatment Plan Physical Therapy Treatment Plan Bed Mobility Training,Transfer Training,Gait Training, Therapeutic Exercise,Balance Retraining,Discharge Planning, Hot or Cold Pack,Neuromuscular Re-ed,Coordination Retraining Precautions Other Precautions falls, BP Recommendations To Nursing Amount of Assist Needed 2 Person Assist Discharge Recommendations PT Discharge Recommendations Home with 10/09 Assist Available,Home Health,SNF Rehab,Home vs SNF Equipment Needed for Home Before FWW Discharge Transportation Needs at Discharge Private Vehicle,Wheelchair/ Cabulance
--- NOTE | 2023-04-02 15:29 | PC.NURSE ---
Patient moved from room 227 to room 219 at this time. Pt moved via wheelchair and placed on portable tele. Report given to Emmanuel TYLER.
--- NOTE | 2023-04-02 16:56 | CM.DANOTE ---
DCP Assessment Note Pt is an 83yo M here following afib/weakness/PE. PCP Margarita August ([facility]) Payer Windy Rm and self pay J2EE JAVA DEVELOPER reviewed EMR. Per provider in morning rounds, may dc tomorrow. Per PT, rec SNF vs HH vs home with family. J2EE JAVA DEVELOPER entered room and introduced self and role. Pt laying in bed and accompanied by dtr Lynn. Pt agreeable to let dtr be main participant in DCP conversation. Dtr confirms she lives with pt, spouse, and other dtr. Both dtrs help care for pt and spouse. have CGs 4HRs/day 5 days a week in home, interested in more. Spouse has Alzheimer's. Dtr reports pt mostly bed bound but as baseline walks self to bathroom. Has a walker, shower seat, and hos bed. Dtr reports pt would not do well at SNF and prefer HH. No preference for agency, just care about insurance. PT/OT/ACCOUNTING SOFTWARE SPECIALIST/J2EE JAVA DEVELOPER would be family preference but agreeable to RN if get services faster. Report no other CM needs. Plan: home with family and HH when stable. CM team will make HH referral. CM team will follow closely for additional needs. Transport with dtr. SKINNY Morris Discharge Planning/Care Management CM Discharge Assessment Start: 04/02/23 16:53 Freq: Status: Active Protocol: Document 04/02/23 16:53 SL (Rec: 04/02/23 16:55 SL [id number]) Discharge Planning Assessment Assigned Immigration Judge SKINNY Glasgow DPOA/Assigned Designee Name bruce Bailey Contact Information [phone] Advance Directives? No History Provided By Family Member Prior Living Arrangements House Household Members spouse,children Comment spouse has dementia, two dtrs care for them both Type of transporation used prior to Relies on Others admit Independent with ADL's No Needs Assistance With Bathing,Meal Prep,Managing Medications,Home Chores / Shopping DME Already Rented / Owned Hospital Bed,Elevated Toilet Seat,FWW / Walker Patient/Family Preference Home with Home Health Barriers to Discharge No Discharge Plan Home with Home Health Transportation Arrangement Family Additional Comment HH referal needed. No preference as long as they take west. SNF/HH Preference no prefernce as long as take west. Whiteboard Updated in Patient Room with Yes name and ext. # of Immigration Judge Review Status In Process Next Review Type Continued Stay Review
[2023-04-02] MEDS: MAGNESIUM SULFATE 2 GM/50 ML PIGGYBACK IV (17:57)
[2023-04-02] MEDS: POTASSIUM CHLORIDE 20 MEQ TAB 40 MEQ PO (17:57)
[2023-04-03] VITALS (8 sets, daily range): BP systolic 103–110; BP diastolic 53–66; PULSE 94–105; RESP 15–18; TEMP 35.7–36.5; O2SAT 95–97
[2023-04-03 05:10] LABS: BUN Creatinine Ratio 27.7 (6-22); Blood Urea Nitrogen 26 mg/dL (9-20); Calcium 8.3 mg/dL (8.4-10.2); Carbon Dioxide 22 mmol/L (22-32); Chloride 101 mmol/L (98-107); Estimated Glomerular Filt Rate > 60 mL/min (>60); Glucose 128 mg/dL (80-110); HEMOLYSIS < 15 (0-50); Potassium 3.9 mmol/L (3.4-5.1); Sodium 132 mmol/L (137-145)
[2023-04-03 05:13] LABS: x Labcorp Estim. Avg Glu (eAG) 237 mg/dL (.); x Labcorp Hemoglobin A1c 9.9 % (4.8-5.6)
[2023-04-03 05:33] LABS: Magnesium 2.3 mg/dL (1.6-2.3)
--- NOTE | 2023-04-03 07:46 | PM.PN.1 ---
Subjective Subjective Interval history: Fount to have NSVT and LVAEF 10-15% by ECHO yesterday, His glucose is improved. He feels better today. He denies any shortness a breath. He has no known history of CAD, and denies any episodes of chest pain. Exam Vital Signs (past 8 hours): - 04/03/23 00:00 04/03/23 04:00 Temperature 97.0 F L 96.3 F L Pulse Rate 102 H 94 H Respiratory Rate 17 16 Blood Pressure 103/63 106/63 Pulse Oximetry 97 96 Oxygen Flow Rate 0 0 Oxygen Delivery Method Room Air Oxygen Flow Rate 0 Narrative Exam Narrative: NAD, speech normal. Lungs are clear with normal rate and effort. Heart is regular, no murmur gallop or rub. Abdomen is soft, nontender. 1+ leg edema. Objective Imaging Echo: Radiologist's impression: The ejection fraction is estimated to be 15-20%. Diastolic function could not be accurately assessed due to unobtainable data. The right ventricle is mildly dilated. Right ventricular systolic function is mildly reduced. There is moderate mitral regurgitation. There is moderately reduced leaflet mobility. There is mild to moderate tricuspid regurgitation. The right ventricular systolic pressure is estimated to be at least 61 mmHg based on an estimated right atrial pressure of 15 mm Hg. Labs 04/03/23 11:17 04/03/23 04:17 Labs: Laboratory Results - last 24 hr 04/01/23 04/02/23 04/02/23 13:04 00:15 08:20 Sodium 134 L Potassium 3.5 Chloride 100 Carbon Dioxide 19 L BUN 27 H Creatinine 0.88 Estimated GFR > 60 BUN/Creatinine Ratio 30.7 H Glucose 126 H Hgb A1c (Ref Lab) 9.9 H Estim Average Glucose 237 Calcium 8.1 L Magnesium 1.8 Nasal Screen MRSA (PCR) Not detected 04/03/23 04:17 Sodium 132 L Potassium 3.9 Chloride 101 Carbon Dioxide 22 BUN 26 H Creatinine 0.94 Estimated GFR > 60 BUN/Creatinine Ratio 27.7 H Glucose 128 H Hgb A1c (Ref Lab) Estim Average Glucose Calcium 8.3 L Magnesium 2.3 Nasal Screen MRSA (PCR) REPLACED BY [facility] Medical History (Updated 04/01/23 @ 19:30 by Julio César Kaur MD) Hyperlipidemia Hypertension Diabetes Surgical History No pertinent past surgical history Family History Mother Diabetes mellitus Father Diabetes mellitus Other Congestive heart failure Hyperlipidemia Social History household members: spouse and children Smoking Status: Never smoker alcohol intake: current Assessment & Plan Assessment & Plan narrative: DKA: Present on admission and improving. Initial pH 7.28, blood sugar 288, anion gap 20, UA was positive for glucose and ketones. -Continue Lantus, Lispro. -consult dietitian/diabetic education nurse Severe acute systolic heart failure, present on admission and active. -start BB, SOLOMON. Discuss with [facility] cardiology (ICD, follow up). NSVT, new and active. -[facility] cardiology Hypokalemia, present on admission and improved. -replenish potassium as needed. Acute kidney injury. Present on admission and resolved. Hyperlipidemia. Present on admission and active. -Restarted atorvastatin. Met with daughter and patient. Time Spent With Patient Time with patient: 30 to 49 minutes with 50% spent counseling/coordinating care Quality VTE Deep Vein Thrombosis/Pulmonary Embolism Present on Admission: No
[2023-04-03] MEDS: FAMOTIDINE 20 MG/2 ML VIAL IV (09:20)
[2023-04-03] MEDS: ATORVASTATIN 20 MG TABLET PO (09:20)
[2023-04-03] MEDS: ASPIRIN EC 81 MG TABLET 162 MG PO (09:20)
[2023-04-03] MEDS: ENOXAPARIN 40 MG/0.4 ML SYRINGE SUBCUT (09:20)
[2023-04-03] MEDS: INSULIN GLARGINE 100 UNIT/ML 3ML PEN 15 UNIT SUBCUT (09:20)
[2023-04-03 11:44] LABS: Add Manual Diff / Slide Review NO; Basophils Absolute Auto 0 /uL (0-100); Basophils Percent Auto 0.3 % (0-2); Eosinophils Absolute Auto 100 /uL (0-450); Eosinophils Percent Auto 1.4 % (2-4); Hematocrit 37.5 % (41-53); Hemoglobin 12.5 g/dL (13.5-17.5); Lymphocytes Absolute Auto 1900 /uL (1100-4500); Lymphocytes Percent Auto 24.2 % (25-40); Mean Corpuscular HGB Conc 33.3 % (30-36); Mean Corpuscular Hemoglobin 28.1 PG (26-34); Mean Corpuscular Volume 84.2 fL (80-100); Monocytes Absolute Auto 1000 /uL (0-900); Monocytes Percent Auto 13.3 % (3-14); Neutrophils Absolute Auto 4800 /uL (1500-7000); Neutrophils Percent Auto 60.8 % (50-75); Platelet Count 178 X10^3/uL (150-400); Red Blood Cell Count 4.45 X10^6/uL (4.5-5.9); White Blood Cell Count 7.9 X10^3/uL (4.5-11.0)
[2023-04-03 11:53] LABS: BUN Creatinine Ratio 26.9 (6-22); Blood Urea Nitrogen 25 mg/dL (9-20); Calcium 8.4 mg/dL (8.4-10.2); Carbon Dioxide 20 mmol/L (22-32); Chloride 99 mmol/L (98-107); Estimated Glomerular Filt Rate > 60 mL/min (>60); Glucose 263 mg/dL (80-110); HEMOLYSIS < 15 (0-50); Potassium 3.9 mmol/L (3.4-5.1); Sodium 131 mmol/L (137-145)
[2023-04-03] MEDS: INSULIN LISPRO 100 UNIT/ML 3ML VIAL SUBCUT ×2 (11:59→17:15)
[2023-04-03 12:06] LABS: Troponin I 0.045 ng/mL (0.01-0.034)
[2023-04-03] MEDS: METOPROLOL ER 25 MG TABLET PO (12:23)
--- NOTE | 2023-04-03 13:46 | PT.IPTN ---
Current Diagnoses Type 2 diabetes mellitus with ketoacidosis without coma (04/01/23) Physical Therapy Treatment Note M2 PT-IP Current Condition Start: 04/02/23 14:17 Freq: NEEDED Status: Active Protocol: Document 04/02/23 12:20 AB (Rec: 04/02/23 14:45 AB [id number]) Physical Therapy Current Condition Current Condition Evaluation Date 04/02/23 Treatment Diagnosis A-fib; DKA; difficulty in walking Onset Date 04/01/23 M3 PT-IP Subjective Start: 04/02/23 14:17 Freq: NEEDED Status: Active Protocol: Document 04/03/23 14:15 TS (Rec: 04/03/23 14:29 TS [id number]) Subjective Physical Therapy Visit Type Type Treatment Note Visit Start Time 13:46 Visit Stop Time 14:14 Number of SUEDING MACHINE OPERATOR Visits 1 Physical Therapy Visit Comments Patient Comments Pt found resting in bed, daughter in room, pt is agreeable to PT. M4 PT-IP Mobility and Gait Start: 04/02/23 14:17 Freq: NEEDED Status: Active Protocol: Document 04/03/23 14:15 TS (Rec: 04/03/23 14:29 TS [id number]) PT-Bed Mobility Assessment Supine to Sit Supine to Sit Minimal Assistance,1 Person Assistance Scooting Scooting to Edge of Bed Contact Guard Assistance PT-Transfer Assessment Sit to and From Stand Sit to and from Stand Contact Guard Assistance, Minimal Assistance,1 Person Assistance,Use of Upper Extremities Equipment Transfer Assistive Device Gait Belt,Front Wheeled Walker Orthotic/Prosthetic Devices or Brace: No Transfers Transfer Destination Chair Transfer Technique Stand Step Pivot Transfer Ability Level of Assist Minimal Assistance,1 Person Assistance,Use of Upper Extremities Comments Mobility Comments Supine to sit HOB elevated Princess for uprighting trunk with ICING COATER, pt required cues for LEs towards EOB. He performed STS from bed Princess for slight retrolean with use of FWW. Pt performed stand step pivot to chair Princess with use of FWW, pt denied further ambulation . Sitting in chair pt performed seated march x15 and knee flex /ext x15, pt required cues for upright posture in chair. He performed STS from chair CGA x3 with FWW, pt cued for weight forward and feet underneath him. Pt was left in chair, daugther in room, nursing notified. Gait Assessment Comments Gait Comments Stand step pivot to chair, refused further gait. PT-Balance Assessment Sitting Balance and Reactions Static Sitting Balance Ability Good Dynamic Sitting Balance Ability Fair Standing Balance and Reactions Static Standing Balance Ability Fair Dynamic Standing Balance Ability Fair Device Used FWW M5 PT-IP Objective Assessments Start: 04/02/23 14:17 Freq: NEEDED Status: Active Protocol: Document 04/02/23 12:20 AB (Rec: 04/02/23 14:45 AB [id number]) Orientation Orientation/Cognition Level of Alertness Alert Orientation Name Language Function Ability Hard of Hearing Safety Awareness Decreased Safety Awareness Memory Description Short Term Impaired Gross Range of Motion Lower Extremity ROM Assessment Within Functional Limits Strength Lower Extremity Strength Hip 3+/5 Knee 3+/5 Sensation Assessment Sensation Gross Sensation WNL Muscle Tone Muscle Tone WNL Yes M6 PT-IP Treatment Start: 04/02/23 14:17 Freq: NEEDED Status: Active Protocol: Document 04/03/23 14:15 TS (Rec: 04/03/23 14:29 TS [id number]) Physical Therapy Treatment Education Education Provided Safety M7 PT-IP Assessment and Plan Start: 04/02/23 14:17 Freq: NEEDED Status: Active Protocol: Document 04/03/23 14:15 TS (Rec: 04/03/23 14:29 TS [id number]) PT Summary Assessment and Plan Potential Rehabilitation Potential Fair Summary Impairments Pain,ROM,Strength,Balance, Coordination,Sensation,Tone, Cognition,Bed Mobility, Transfers,Gait,Activity Tolerance Progress Towards Goals Progressing Toward Goals Assessment Summary Jamari is making some progress with his mobility this session. He requires decreased assist for bed mobility to Princess with ICING COATER to upright trunk with max cues. He progressed his STS to x1MinA from bed and x3CGA from chair with max cues. He continues to perform stand step pivot transfer to chair with FWW, refuses further ambulation. PT is recommending pt return home with 10/09 assist and HHPT. Goals Bed Mobility Goal Standby Assistance Transfer Goal Standby Assistance,Front Wheeled Walker Gait Goal Standby Assistance,Front Wheel Walker Gait Distance 50 Other Goals up/down 2 steps ICING COATER CGA Days to Meet Goals 10 Frequency of Treatment Frequency Of Treatment Once a Day Treatment Plan Physical Therapy Treatment Plan Bed Mobility Training,Transfer Training,Gait Training, Therapeutic Exercise,Balance Retraining,Discharge Planning, Hot or Cold Pack,Neuromuscular Re-ed,Coordination Retraining Other Recommendations and Next Treatment Try to progress gait past Focus transfers, continue ex. Precautions Other Precautions falls, BP Recommendations To Nursing Amount of Assist Needed 1 Person Assist Discharge Recommendations PT Discharge Recommendations Home with 10/09 Assist Available,Home Health Equipment Needed for Home Before FWW Discharge Transportation Needs at Discharge Private Vehicle,Wheelchair/ Cabulance
--- NOTE | 2023-04-03 16:50 | CM.DPNOTE ---
DCP Note RESIZER OPERATOR reviewed EMR. Unable to meet with pt or dtr today due to triaging needs. PT continues to rec HH. Per provider in morning rounds, likely here another few days. Per provider in rounds, considering goals of care/hos conversation with family and pt due to EF of 10-15%. HH referral needed for PT/OT/SENIOR DOT NET DEVELOPER/RESIZER OPERATOR. No preference on agency. Plan: home with daughters and PP caregivers when medically stable, HH likely to follow, referral needed. CM team will follow closely. SKINNY Morris
--- NOTE | 2023-04-03 17:10 | DIET.CONS ---
Addendum entered by Janet Loving 04/04/23 08:04: Acute moderate protein calorie malnutrition r/t reduced appetite prior to admission aeb reported <75% EER x10 days and physical signs of mild wasting of mosque and shoulders. -The patient is at much higher risk for medical and surgical complications because of their malnutrition.? This increases the difficulty and complexity of medical and surgical interventions and increases the chances of poor outcomes such as morbidity and mortality. Original Note: Dietary Consultation Note Admission Date: 04/01/2023 18:57 Assessment: 83M admitted with generalized weakness, decreased appetite, sleepy and no BM over the last week. Found to be in DKA with pH 7.28, BG of 288 and AG of 20 with + ketones. PMH of T2DM, HTN, HLD. Also being tx for CAROL, hypokalemia, and CHF. Daughters, Lynn and Munira, at bedside and assisted with assessment. <75% EER over 10 days with only eating half HB egg and two small tomatoes per day (severe). Reports from daughters indicate about 1/4 of a meal per day. Prior to this, would eat 2 meals per day, skips lunch. They have concerns for his eating preferences, ie hot dogs, burgers. He will eat lentil or cabbage soup, fresh carrots, and fruit, sometimes crackers and cheese or HB egg in [place]. Diet recall (usual): B: waffles with syrup, sausage, fruit D: soup or hot dog with fruit or burger Does not like protein shakes or ONS BG elevated at baseline per report with FBG and pc readings often 180-220s mg/dl. Current home DM meds 2000mg Metformin and 25mg Jardiance. PMH of Ozempic x 1.5mg per week, but reduced appetite excessively. Seems he would benefit from additional DM med. Daughter reports provider is worried about hypoglycemia. Recent HgA1c of 9.9%. Denies any recent hypoglycemic events. No recent wt hx on file. Reports UBW 0.4-4.4kg more than current wt. BMI in range for age. Mild wasting evident in NFPE with mild wasting of temples and boxed shoulders (moderate). Ht: 167.64 cm Wt: 72.6 kg BMI: 25.8 UBW: 73-77kg reported Last BM: 04/02/23 (04/02/23 14:11) MNA: 9 Jamie Score: 21 Diet: 04/02/23 Lunch Carbohydrate Consistent Diet Diet Modifications: Carbohydrate level: Medium (3 CHO) Bedtime snack: Yes Reflex DM orders: No Food Texture: Level 7 - Regular Liquid Consistency: Level 0 - Thin Nutrition Percent Meal Consumed 100% 04/03/23 09:27 Percent Meal Consumed 85 04/02/23 18:00 Labs: RBC 4.45 X10^6/uL (4.5-5.9) L 04/03/23 11:17 Hgb 12.5 g/dL (13.5-17.5) L 04/03/23 11:17 Hct 37.5 % (41-53) L 04/03/23 11:17 Creatinine 0.94 mg/dL (0.66-1.25) 04/03/23 04:17 Lactate 1.0 mmol/L (0.7-2.1) 04/01/23 13:04 NT-Pro-B Natriuret Pep 7560 pg/mL (<450) H 04/01/23 13:04 Nutrition Diagnosis: Acute moderate protein calorie malnutrition r/t reduced appetite prior to admission aeb reported <75% EER x10 days and physical signs of mild wasting of mosque and shoulders. Interventions: Reviewed potential DM medication options after d/c (low dose ozempic vs long acting insulin with CGM) Discussed maximizing nutrients with food choices he enjoys, ie carrots with hot dog Reviewed protein recs for PCM Protein snack options while admitted: egg salad sandwich or HB egg with price EER: [id number] kcals (28kcal/kg per BMI) 80-90g PRO (1.1-1.2g/kg per PCM) Monitoring/Evaluations: RD f/u 3-5 days Electronically Signed by: Janet Loving 04/03/23 17:10 Clinical Dietitian [address] [address]
[2023-04-04 03:00] VITALS: BP 106/64; PULSE 86; RESP 15; TEMP 36.1; O2SAT 97
[2023-04-04 04:42] LABS: BUN Creatinine Ratio 27.1 (6-22); Blood Urea Nitrogen 23 mg/dL (9-20); Calcium 8.6 mg/dL (8.4-10.2); Carbon Dioxide 23 mmol/L (22-32); Chloride 103 mmol/L (98-107); Estimated Glomerular Filt Rate > 60 mL/min (>60); Glucose 112 mg/dL (80-110); HEMOLYSIS < 15 (0-50); Potassium 3.6 mmol/L (3.4-5.1); Sodium 133 mmol/L (137-145)
[2023-04-04] MEDS: ENOXAPARIN 40 MG/0.4 ML SYRINGE SUBCUT (09:42)
[2023-04-04] MEDS: ATORVASTATIN 20 MG TABLET PO (09:42)
[2023-04-04] MEDS: INSULIN GLARGINE 100 UNIT/ML 3ML PEN 15 UNIT SUBCUT (09:42)
[2023-04-04] MEDS: ASPIRIN EC 81 MG TABLET 162 MG PO (09:42)
[2023-04-04 09:49] VITALS: BP 107/61; PULSE 103
[2023-04-04] MEDS: METOPROLOL ER 25 MG TABLET PO (09:49)
[2023-04-04 11:00] VITALS: BP 102/58; PULSE 98; RESP 18; TEMP 35.9; O2SAT 97
[2023-04-04 11:27] VITALS: BP 102/58
--- NOTE | 2023-04-04 11:30 | PC.NURSE ---
epic kaleidoscope analyst and family tried to get him out of bed to void;however, pt got dizzy upon standing up. blood pressure was taken while he was laying down and it was 102/58. denied dizziness when laying down. notified provider regarding this event.
--- NOTE | 2023-04-04 12:06 | PM.PN.1 ---
Subjective Subjective Interval history: Feels fine. No nausea, dyspnea. Denies pain. Exam Vital Signs (past 8 hours): - 04/04/23 09:49 04/04/23 11:27 Pulse Rate 103 H Blood Pressure 107/61 102/58 L Oxygen Delivery Method Room Air Oxygen Flow Rate 0 Narrative Exam Narrative: NAD, slow to answer. Lungs are clear with normal effort Heart is irregular, no murmur. 1+ leg edema. Objective Labs 04/03/23 11:17 04/04/23 04:12 Labs: Laboratory Results - last 24 hr 04/03/23 04/04/23 11:17 04:12 Sodium 131 L 133 L Potassium 3.9 3.6 Chloride 99 103 Carbon Dioxide 20 L 23 BUN 25 H 23 H Creatinine 0.93 0.85 Estimated GFR > 60 BUN/Creatinine Ratio 26.9 H 27.1 H Glucose 263 H D 112 H D Calcium 8.4 8.6 Troponin I 0.045 H [facility] Medical History Hyperlipidemia Hypertension Diabetes Surgical History No pertinent past surgical history Family History Mother Diabetes mellitus Father Diabetes mellitus Other Congestive heart failure Hyperlipidemia Social History household members: spouse and children Smoking Status: Never smoker alcohol intake: current Assessment & Plan Assessment & Plan narrative: DKA: Present on admission and resolved. Initial pH 7.28, blood sugar 288, anion gap 20, UA was positive for glucose and ketones. -Continue Lantus, Lispro. Glucose are stable. -consult dietitian/diabetic education nurse Severe acute systolic heart failure, present on admission and active. -start BB, SOLOMON. Discuss with [facility] cardiology (ICD, follow up). -requested transfer to [facility] for cardiac evaluation (cath and possible ICD). NSVT, new and active. -[facility] cardiology -This has improved. Hypokalemia, present on admission and improved. -replenish potassium as needed. Acute kidney injury. Present on admission and resolved. Hyperlipidemia. Present on admission and active. -Restarted atorvastatin. Met with daughter and patient. Requested transfer to [facility] this AM at 08:00 Time Spent With Patient Time with patient: 30 to 49 minutes with 50% spent counseling/coordinating care Quality VTE Deep Vein Thrombosis/Pulmonary Embolism Present on Admission: No
[2023-04-04] MEDS: INSULIN LISPRO 100 UNIT/ML 3ML VIAL SUBCUT ×2 (12:21→17:24)
--- NOTE | 2023-04-04 14:25 | PT.IPTN ---
Current Diagnoses Type 2 diabetes mellitus with ketoacidosis without coma (04/01/23) Physical Therapy Treatment Note M2 PT-IP Current Condition Start: 04/02/23 14:17 Freq: NEEDED Status: Active Protocol: Document 04/02/23 12:20 AB (Rec: 04/02/23 14:45 AB [id number]) Physical Therapy Current Condition Current Condition Evaluation Date 04/02/23 Treatment Diagnosis A-fib; DKA; difficulty in walking Onset Date 04/01/23 M3 PT-IP Subjective Start: 04/02/23 14:17 Freq: NEEDED Status: Active Protocol: Document 04/04/23 15:01 TS (Rec: 04/04/23 15:23 TS [id number]) Subjective Physical Therapy Visit Type Type Treatment Note Visit Start Time 14:25 Visit Stop Time 14:49 Notes HR 115 at rest, HR 163 with mobility, BP 100/57 supine, 103/63 sitting. Number of OFFICE MACHINE PUNCH OPERATOR Visits 2 Physical Therapy Visit Comments Patient Comments Pt found resting in bed, is agreeable to Pt. M4 PT-IP Mobility and Gait Start: 04/02/23 14:17 Freq: NEEDED Status: Active Protocol: Document 04/04/23 15:01 TS (Rec: 04/04/23 15:23 TS [id number]) PT-Bed Mobility Assessment Supine to Sit Supine to Sit Minimal Assistance,1 Person Assistance Scooting Scooting to Edge of Bed Minimal Assistance PT-Transfer Assessment Sit to and From Stand Sit to and from Stand Contact Guard Assistance,1 Person Assistance,Use of Upper Extremities Equipment Transfer Assistive Device Gait Belt,Front Wheeled Walker Orthotic/Prosthetic Devices or Brace: No Transfers Transfer Destination Chair Transfer Technique Stand Step Pivot Transfer Ability Level of Assist Minimal Assistance,1 Person Assistance,Use of Upper Extremities Comments Mobility Comments Bp in supine 100/57, HR115. Supine to sit with HOB elevated 45D Princess with PHARMACEUT[employer] SALES to upright trunk. He sat EOB Princess /CGA for posterior lean, required cues for handrail assist. BP in sitting 106/73. He performed stand step pivot to chair CGA with FWW. RN entered room and informed therapist of HR in 160's. Pt was left in chair, family in room, all needs met. PT-Balance Assessment Sitting Balance and Reactions Static Sitting Balance Ability Good Dynamic Sitting Balance Ability Fair Standing Balance and Reactions Static Standing Balance Ability Fair Dynamic Standing Balance Ability Fair Device Used FWW M5 PT-IP Objective Assessments Start: 04/02/23 14:17 Freq: NEEDED Status: Active Protocol: Document 04/02/23 12:20 AB (Rec: 04/02/23 14:45 AB [id number]) Orientation Orientation/Cognition Level of Alertness Alert Orientation Name Language Function Ability Hard of Hearing Safety Awareness Decreased Safety Awareness Memory Description Short Term Impaired Gross Range of Motion Lower Extremity ROM Assessment Within Functional Limits Strength Lower Extremity Strength Hip 3+/5 Knee 3+/5 Sensation Assessment Sensation Gross Sensation WNL Muscle Tone Muscle Tone WNL Yes M6 PT-IP Treatment Start: 04/02/23 14:17 Freq: NEEDED Status: Active Protocol: Document 04/04/23 15:01 TS (Rec: 04/04/23 15:23 TS [id number]) Physical Therapy Treatment Education Education Provided Safety M7 PT-IP Assessment and Plan Start: 04/02/23 14:17 Freq: NEEDED Status: Active Protocol: Document 04/04/23 15:01 TS (Rec: 04/04/23 15:23 TS [id number]) PT Summary Assessment and Plan Potential Rehabilitation Potential Fair Summary Impairments Pain,ROM,Strength,Balance, Coordination,Sensation,Tone, Cognition,Bed Mobility, Transfers,Gait,Activity Tolerance Progress Towards Goals Slow Progress due to Medical Issues,Slow Progress due to Activity Tolerance Assessment Summary Jamari is making slow progress with his mobility. He is Princess with HOB elevated for bed mobility and requires max cues for sequencing. He is CGA for sit to stand with use of FWW and for stand step pivot to chair. Resting HR was in 110's , increased to 160's during transfer to chair. PT is recommending Home 10/09 assist vs SNF. Pt could benefit from daily PT at rehab to improve strenght, functional mobility and activity tolerance. Goals Bed Mobility Goal Standby Assistance Transfer Goal Standby Assistance,Front Wheeled Walker Gait Goal Standby Assistance,Front Wheel Walker Gait Distance 50 Other Goals up/down 2 steps PHARMACEUTICAL SALES CGA Days to Meet Goals 10 Frequency of Treatment Frequency Of Treatment Once a Day Treatment Plan Physical Therapy Treatment Plan Bed Mobility Training,Transfer Training,Gait Training, Therapeutic Exercise,Balance Retraining,Discharge Planning, Hot or Cold Pack,Neuromuscular Re-ed,Coordination Retraining Other Recommendations and Next Treatment Try to progress gait past Focus transfers, continue ex. Precautions Other Precautions falls, BP, HR Recommendations To Nursing Amount of Assist Needed 1 Person Assist Discharge Recommendations PT Discharge Recommendations Home with 10/09 Assist Available,Home Health,SNF Rehab,Home vs SNF Equipment Needed for Home Before FWW Discharge Transportation Needs at Discharge Private Vehicle,Wheelchair/ Cabulance
[2023-04-04 14:33] LABS: Magnesium 2.2 mg/dL (1.6-2.3)
[2023-04-04 15:00] VITALS: BP 102/58; PULSE 100; RESP 18; TEMP 35.9; O2SAT 97
[2023-04-04 20:00] VITALS: BP 108/70; PULSE 71; RESP 16; TEMP 36.4; O2SAT 98
[2023-04-05] VITALS (7 sets, daily range): BP systolic 96–118; BP diastolic 50–85; PULSE 53–110; RESP 16–20; TEMP 35.6–37; O2SAT 94–96
[2023-04-05 06:33] LABS: Blood Urea Nitrogen 22 mg/dL (9-20); Calcium 8.9 mg/dL (8.4-10.2); Carbon Dioxide 21 mmol/L (22-32); Chloride 103 mmol/L (98-107); Estimated Glomerular Filt Rate > 60 mL/min (>60); Glucose 127 mg/dL (80-110); HEMOLYSIS < 15 (0-50); Potassium 3.6 mmol/L (3.4-5.1); Sodium 135 mmol/L (137-145)
[2023-04-05] MEDS: INSULIN GLARGINE 100 UNIT/ML 3ML PEN 15 UNIT SUBCUT (09:07)
[2023-04-05] MEDS: ENOXAPARIN 40 MG/0.4 ML SYRINGE SUBCUT (09:07)
[2023-04-05] MEDS: ASPIRIN EC 81 MG TABLET 162 MG PO (09:08)
[2023-04-05] MEDS: METOPROLOL ER 25 MG TABLET PO (09:08)
[2023-04-05] MEDS: ATORVASTATIN 20 MG TABLET PO (09:08)
--- NOTE | 2023-04-05 10:18 | PT-IP ANOTE ---
Pt would like to rest in bed and refused PT. Daughter in room states pt looks pale and she might get him up to the chair later today when he's feeling better. PT will attempt to see pt later today if time is available.
--- NOTE | 2023-04-05 12:15 | PM.PN.1 ---
Subjective Subjective Interval history: No complaints today, including shortness of breath or chest pain. He does feel generally fatigued. Exam Vital Signs (past 8 hours): - 04/05/23 08:00 04/05/23 08:30 04/05/23 12:00 Temperature 96.9 F L 96.8 F L Pulse Rate 61 102 H Respiratory Rate 20 20 Blood Pressure 96/55 L 118/69 Pulse Oximetry 96 96 Oxygen Delivery Method Room Air Oxygen Flow Rate 0 0 Oxygen Delivery Method Room Air Oxygen Flow Rate 0 Const Other: NAD, few words are spoken. Lungs are clear, normal rate and effort. Heart is regular without murmur. Abdomen is soft, and non tender. Extremities with 1+ edema. Objective Labs 04/03/23 11:17 04/05/23 05:45 Labs: Laboratory Results - last 24 hr 04/04/23 04/05/23 04:12 05:45 Sodium 135 L Potassium 3.6 Chloride 103 Carbon Dioxide 21 L BUN 22 H Creatinine 0.88 Estimated GFR > 60 BUN/Creatinine Ratio 25.0 H Glucose 127 H Calcium 8.9 Magnesium 2.2 [facility] Medical History Hyperlipidemia Hypertension Diabetes Surgical History No pertinent past surgical history Family History Mother Diabetes mellitus Father Diabetes mellitus Other Congestive heart failure Hyperlipidemia Social History household members: spouse and children Smoking Status: Never smoker alcohol intake: current Assessment & Plan Assessment & Plan narrative: DKA 2: Present on admission and resolved. Initial pH 7.28, blood sugar 288, anion gap 20, UA was positive for glucose and ketones. -Continue Lantus, Lispro. Glucose are stable. -consult dietitian/diabetic education nurse DM 2, present on admission and active. Severe acute systolic heart failure, present on admission and active. -start BB, SOLOMON. Discuss with [facility] cardiology (ICD, follow up). -requested transfer to [facility] for cardiac evaluation (cath and possible ICD). Called again 04/05. We will expand request to [place] if no word by this afternoon. NSVT (ventricular tachycardia), new and improved. -[facility] cardiology -This has improved. Hypokalemia, present on admission and improved. -replenish potassium as needed. Acute kidney injury. Present on admission and resolved. Hyperlipidemia. Present on admission and active. -Restarted atorvastatin. Plan: Continue insulin regimen as is. Check HbA1c, last was 2 years ago was 7.9. Discussed the discharge plan and alternative plan to [place] with both daughters at the bedside today. They are in agreement. Add lisinopril 2.5 daily. Time Spent With Patient Time with patient: 30 to 49 minutes with 50% spent counseling/coordinating care Quality VTE Deep Vein Thrombosis/Pulmonary Embolism Present on Admission: No
[2023-04-05] MEDS: INSULIN LISPRO 100 UNIT/ML 3ML VIAL SUBCUT ×2 (13:30→17:31)
[2023-04-05] MEDS: lisinopriL 5 MG TABLET 2.5 MG PO (14:25)
[2023-04-05] MEDS: FOLIC ACID 1 MG TABLET PO (14:26)
[2023-04-05 15:33] LABS: Hemoglobin A1C% w Est Avg Glu 9.3 % (4.0-6.0)
[2023-04-06] VITALS: BP 97/59; PULSE 103; RESP 16; TEMP 36; O2SAT 97
[2023-04-06 04:00] VITALS: BP 115/66; PULSE 101; RESP 17; TEMP 35.6; O2SAT 96
[2023-04-06 06:44] LABS: BUN Creatinine Ratio 21.5 (6-22); Blood Urea Nitrogen 20 mg/dL (9-20); Calcium 8.6 mg/dL (8.4-10.2); Carbon Dioxide 26 mmol/L (22-32); Chloride 103 mmol/L (98-107); Estimated Glomerular Filt Rate > 60 mL/min (>60); Glucose 95 mg/dL (80-110); HEMOLYSIS < 15 (0-50); Potassium 3.3 mmol/L (3.4-5.1); Sodium 136 mmol/L (137-145)
[2023-04-06 08:00] VITALS: BP 88/54; PULSE 97; RESP 19; TEMP 35.7; O2SAT 97
[2023-04-06] MEDS: POTASSIUM CHLORIDE 20 MEQ TAB 40 MEQ PO ×2 (09:59→17:55)
[2023-04-06] MEDS: ENOXAPARIN 40 MG/0.4 ML SYRINGE SUBCUT (09:59)
[2023-04-06] MEDS: ATORVASTATIN 20 MG TABLET PO (10:00)
[2023-04-06] MEDS: FOLIC ACID 1 MG TABLET PO (10:00)
[2023-04-06] MEDS: ASPIRIN EC 81 MG TABLET PO (10:00)
[2023-04-06] MEDS: CHOLECALCIFEROL (VITAMIN D3) 1,000 UNIT TABLET 1000 UNIT PO (10:00)
[2023-04-06] MEDS: INSULIN GLARGINE 100 UNIT/ML 3ML PEN 15 UNIT SUBCUT (10:01)
[2023-04-06] MEDS: INSULIN LISPRO 100 UNIT/ML 3ML VIAL SUBCUT ×2 (11:59→17:54)
[2023-04-06 12:00] VITALS: BP 95/49; PULSE 102; RESP 20; TEMP 35.7; O2SAT 97
--- NOTE | 2023-04-06 12:30 | PT.IPTN ---
Current Diagnoses Type 2 diabetes mellitus with ketoacidosis without coma (04/01/23) Physical Therapy Treatment Note M2 PT-IP Current Condition Start: 04/02/23 14:17 Freq: NEEDED Status: Active Protocol: Document 04/02/23 12:20 AB (Rec: 04/02/23 14:45 AB [id number]) Physical Therapy Current Condition Current Condition Evaluation Date 04/02/23 Treatment Diagnosis A-fib; DKA; difficulty in walking Onset Date 04/01/23 M3 PT-IP Subjective Start: 04/02/23 14:17 Freq: NEEDED Status: Active Protocol: Document 04/06/23 13:56 TS (Rec: 04/06/23 14:09 TS [id number]) Subjective Physical Therapy Visit Type Type Treatment Note Visit Start Time 12:30 Visit Stop Time 13:00 Notes Resting HR 110, HR 151 during mobility. Number of ASSISTANT FOOTBALL COACH Visits 3 Physical Therapy Visit Comments Patient Comments Pt found resting in bed, daughter in room, pt woud like to get up to use commode. M4 PT-IP Mobility and Gait Start: 04/02/23 14:17 Freq: NEEDED Status: Active Protocol: Document 04/06/23 13:56 TS (Rec: 04/06/23 14:09 TS [id number]) PT-Bed Mobility Assessment Supine to Sit Supine to Sit Minimal Assistance,1 Person Assistance Sit to Supine Sit to Supine Contact Guard Assistance Scooting Scooting to Edge of Bed Minimal Assistance PT-Transfer Assessment Sit to and From Stand Sit to and from Stand Contact Guard Assistance, Minimal Assistance,1 Person Assistance,Use of Upper Extremities Equipment Transfer Assistive Device Gait Belt,Front Wheeled Walker Orthotic/Prosthetic Devices or Brace: No Transfers Transfer Destination Bedside Commode Transfer Technique Stand Step Pivot Transfer Ability Level of Assist Minimal Assistance,1 Person Assistance,Use of Upper Extremities Comments Mobility Comments Supine to sit Princess with HOB elevated 55D, pt cued for use of bedrails. He scooted to EOB Princess with use of transfer pad . Pt sat EOB SBA with BUE support and no posterior leaning. STS from bed Princess with use of FWW and stand step pivot to commode. Daughter assisted pt with pericare. STS from commode CGA wth use of FWW, pt ambulated around to other side of bed ~10'CGA. Pt requested back to bed, sit to supine CGA for LEs. Pt was left in bed, all needs met. Gait Assessment Gait Gait Assistance Required: Contact Guard Assist,Minimum Assistance,1 Person Assist Distance (Feet) 10 Assistive Devices Assistive Device Gait Belt,Front Wheeled Walker Orthotic/Prosthetic Devices or Brace: No Gait Deviations General Gait Pattern Decreased Stride Length, Decreased Feet Clearance, Flexed Trunk,Step-to Gait Factors Limiting Gait Function Factors Limiting Gait Function Decreased Activity Tolerance, Decreased Strength,Difficulty Following Directions,Poor Balance,Poor Safety Awareness Comments Gait Comments See mobility comments PT-Balance Assessment Sitting Balance and Reactions Static Sitting Balance Ability Good Dynamic Sitting Balance Ability Fair Standing Balance and Reactions Static Standing Balance Ability Fair Dynamic Standing Balance Ability Poor Device Used FWW M5 PT-IP Objective Assessments Start: 04/02/23 14:17 Freq: NEEDED Status: Active Protocol: Document 04/02/23 12:20 AB (Rec: 04/02/23 14:45 AB [id number]) Orientation Orientation/Cognition Level of Alertness Alert Orientation Name Language Function Ability Hard of Hearing Safety Awareness Decreased Safety Awareness Memory Description Short Term Impaired Gross Range of Motion Lower Extremity ROM Assessment Within Functional Limits Strength Lower Extremity Strength Hip 3+/5 Knee 3+/5 Sensation Assessment Sensation Gross Sensation WNL Muscle Tone Muscle Tone WNL Yes M6 PT-IP Treatment Start: 04/02/23 14:17 Freq: NEEDED Status: Active Protocol: Document 04/06/23 13:56 TS (Rec: 04/06/23 14:09 [id number]) Physical Therapy Treatment Education Education Provided Safety M7 PT-IP Assessment and Plan Start: 04/02/23 14:17 Freq: NEEDED Status: Active Protocol: Document 04/06/23 13:56 TS (Rec: 04/06/23 14:09 [id number]) PT Summary Assessment and Plan Potential Rehabilitation Potential Fair Summary Impairments Pain,ROM,Strength,Balance, Coordination,Sensation,Tone, Cognition,Bed Mobility, Transfers,Gait,Activity Tolerance Progress Towards Goals Slow Progress due to Medical Issues,Slow Progress due to Activity Tolerance Assessment Summary Jamari continues to make slow progress with his mobility. He is Princess for supine to sit with HOB elevated and use of bedrails. He improved his sitting balance with no posterior leaning. He continues to require Princess for STS and for posterior lean. He progressed his gait to ~10' CGA/Princess with FWW, pt is usnteady and demonstrates poor safety awareness. PT is recommending home with 24/7 assist and HHPT. Goals Bed Mobility Goal Standby Assistance Transfer Goal Standby Assistance,Front Wheeled Walker Gait Goal Standby Assistance,Front Wheel Walker Gait Distance 50 Other Goals up/down 2 steps SHIPPING TEAM LEADER CGA Days to Meet Goals 10 Frequency of Treatment Frequency Of Treatment Once a Day Treatment Plan Physical Therapy Treatment Plan Bed Mobility Training,Transfer Training,Gait Training, Therapeutic Exercise,Balance Retraining,Discharge Planning, Hot or Cold Pack,Neuromuscular Re-ed,Coordination Retraining Precautions Other Precautions falls, BP, HR Recommendations To Nursing Amount of Assist Needed 1 Person Assist Discharge Recommendations PT Discharge Recommendations Home with 24/7 Assist Available,Home Health Equipment Needed for Home Before FWW Discharge Transportation Needs at Discharge Private Vehicle,Wheelchair/ Cabulance
--- NOTE | 2023-04-06 13:43 | CM.DPC ---
DCP Cont: Discussed patient during team rounds. Hospitalist is still working on getting patient to a higher level hospital, barriers are bed availabilities. He has indicated that attempt will continue, but if unable to secure a bed, may be looking at discharging patient. Will follow closely for needs, was noted that home health may be an option for patient, if patient does go home, will pursue home health services. P: DCP to continue to follow. Plan will either be transfer to higher level facility if able to identify, versus home with home health. Giselle Forbes RN/Gasoline Service Attendant
[2023-04-06 16:00] VITALS: BP 100/63; PULSE 102; RESP 19; TEMP 36.7; O2SAT 96
--- NOTE | 2023-04-06 18:36 | P.DS_ITS ---
History of Present Illness History of Present Illness Chief complaint: fatigue/SOB/no bowel movement T-7 Narrative: 83 years old male with history of diabetes mellitus type 2, hypertension, hyperlipidemia, CHF, asthma, large T-cell lymphocytic leukemia presented to the ER with generalized weakness, decreased appetite, sleepy and no any bowel movements in the last week. Denies fever, chest pain, palpitations, cough, shortness of breath, nausea, vomiting, abdominal pain, diarrhea or dysuria. Daughter reports the patient was feeling wheezy and she gave him extra dose of Lasix which seems to help him. Diagnosed with T-cell leukemia last year but not on any active treatments. His antihypertensive medications were stopped after he was diagnosed with leukemia due to blood pressure running low. His only medications was continued was Coreg for A-fib. Laboratory shows WBC 9.9, sodium 133, potassium 3.3, creatinine 1.35 from 1, lactic acid negative, procalcitonin negative, troponin 0.05, BNP 7560, pH 7.28 bicarb 16, anion gap 20, blood glucose 288, UA positive for glucose 3+, ketone 2+, bilirubin 1+, EKG shows atrial fibrillation of 98, LBBB, abdominal CT scan shows small bilateral pleural effusion in the lung bases. Chest x-ray was read for bibasilar pneumonia. In the ER he was borderline hypotensive and initially was given LR 500 cc bolus. Telemetry ICU was consulted and recommended giving Lasix 40 mg IV due to CHF exacerbation. Discharge Providers Provider Date of admission: 04/01/23 18:57 Discharge Date: 04/06/23 Primary care physician: SAMEER Mullins Consults: 04/01/23 19:15 Consult to Tele-vegetable inspector Routine Comment: Consulting Provider: Elaine Tele-intensivists Reason for consultation: Ict Project Manager services 04/01/23 19:20 Consult to Discharge Planning Routine Comment: Consult to Physical Therapy Evaluate & Treat Comment: Physician Instructions: Evaluate and Treat 04/01/23 21:17 Consult to Dietitian, Adult Routine Comment: Reason For Exam: MNA score = 9 Discharge provider: Isaac Hart DO Summary Hospital Course Discharge Diagnosis: DKA 2: Present on admission and resolved. Initial pH 7.28, blood sugar 288, anion gap 20, UA was positive for glucose and ketones. Given insulin drip and then weaned to lantus. -Continue Lantus, Lispro. Glucose are stable. -consult dietitian/diabetic education nurse DM 2, present on admission and active. -A1c 9.3% Severe acute systolic heart failure, present on admission and active. -start BB, SOLOMON. Discuss with [facility] cardiology (ICD, follow up). -requested transfer to [facility] for cardiac evaluation (cath and possible ICD). Called again 04/05. -had to hold SOLOMON and BB due to hypotension Echo 04/01 The ejection fraction is estimated to be 15-20%. Diastolic function could not be accurately assessed due to unobtainable data. The right ventricle is mildly dilated. Right ventricular systolic function is mildly reduced. There is moderate mitral regurgitation. There is moderately reduced leaflet mobility. There is mild to moderate tricuspid regurgitation. The right ventricular systolic pressure is estimated to be at least 61 mmHg based on an estimated right atrial pressure of 15 mm Hg. NSVT (ventricular tachycardia), new and improved. -[facility] cardiology. -This has improved. -tele with sinus tach and LBBB Hypokalemia, present on admission and improved. -replenish potassium as needed. Acute kidney injury. Present on admission and resolved. Hyperlipidemia. Present on admission and active. -Restarted atorvastatin. Full code per patient. Hospital Course: Admitted for DKA, found to have acute severe CHF and transferred to [facility] for cardiology consultation. Spoke with Dr. Dumont junior manufacturing engineer and Dr. Otoniel Lima hospitalist who accepted for transfer. Exam Vital Signs (past 8 hours): - 04/06/23 12:00 04/06/23 16:00 Temperature 96.3 F L 98.1 F Pulse Rate 102 H 102 H Respiratory Rate 20 19 Blood Pressure 95/49 L 100/63 Pulse Oximetry 97 96 Oxygen Flow Rate 0 0 Oxygen Delivery Method Room Air Oxygen Flow Rate 0 Const Other: NAD, somnolent but awakens to verbal stimuli. Lungs are clear, normal rate and effort. Heart is regular without murmur. Abdomen is soft, and non tender. Extremities with 1+ edema. Objective Labs 04/03/23 11:17 04/06/23 05:25 Labs: Laboratory Results - last 24 hr 04/06/23 05:25 Sodium 136 L Potassium 3.3 L Chloride 103 Carbon Dioxide 26 BUN 20 Creatinine 0.93 Estimated GFR > 60 BUN/Creatinine Ratio 21.5 Glucose 95 Calcium 8.6 PFSH Medical History Hyperlipidemia Hypertension Diabetes Surgical History No pertinent past surgical history Family History Mother Diabetes mellitus Father Diabetes mellitus Other Congestive heart failure Hyperlipidemia Social History household members: spouse and children Smoking Status: Never smoker alcohol intake: current Discharge Plan Discharge Plan Patient Disposition: [facility] Discharge Data Primary Care Provider: Margarita August VTE Deep Vein Thrombosis/Pulmonary Embolism Present on Admission: No
[2023-04-06 19:00] VITALS: BP 101/65; PULSE 112; RESP 17; TEMP 35.9; O2SAT 97
--- NOTE | 2023-04-06 21:33 | PC.NURSE ---
Pt transfering to [facility] via ACLS transport. Report called to Kathia TYLER admitting nurse for pt. Reviewed hospital course, pt's lab values. Level of orientation. New IV in the rt upper arm. Both dtr's live with pt at home. Amb crew here as well. They were given report. Pt transfered to [facility] w/denture processor and acls transport.
== END 2023-04-06 19:30 | disposition short-term general hospital (02) | DRG 637 ==
LOC: ED 14:23 → AC 18:59 → ICU 20:17 → AC 04-02 15:20
PROVIDERS: Hospitalist; Internal Medicine; Admitting Provider Internal Medicine; Emergency Provider Emergency Medicine; PCP Nurse Practitioner; Referring Provider Emergency Medicine; Visit Provider Internal Medicine
DX: E11.10 Type 2 diabetes mellitus with ketoacidosis without coma (principal); I50.33 Acute on chronic diastolic (congestive) heart failure; N17.9 Acute kidney failure, unspecified; I47.20 Ventricular tachycardia, unspecified; E44.0 Moderate protein-calorie malnutrition; I11.0 Hypertensive heart disease with heart failure; E87.6 Hypokalemia; E78.5 Hyperlipidemia, unspecified; E86.0 Dehydration; Z68.26 Body mass index [BMI] 26.0-26.9, adult; Z79.84 Long term (current) use of oral hypoglycemic drugs
CPT/HCPCS: 36415; 71045; 74177; 80048; 80053; 80061; 81001; 82805; 82962; 83036; 83605; 83735; 83880; 84145; 84484; 85025; 85610; 87040; 87797; 93005; 93010; 93306; 96361; 96365; 96372; 96375; 97110; 97163; 97530; 99284; 99285; J0696; J1650; J1815; J1940; J3475; Q9967